=== PATIENT | male | born 1965 | race Caucasian/White ===

== ENCOUNTER → 2020-10-18 07:09 | Outpatient (CLI) | payer BC, SELFPAY ==
--- NOTE | 2020-10-18 | CA_ITS ---
APPROVED REPORT Exam: Pharmacologic Technologist: Gabriella Gates Ht: 5 ft 8 in Wt: 176 lbs BSA: 1.94 m2 HR: 58 bpm BP: 155/89 mmHg Indications: Shortness of Breath, Chest pain Medical History Medications: Lisinopril,,,,, Aspirin,,,,, Metoprolol,,,,, Atorvastatin,,,,, Stress Test Details Test: LEXISCAN HR Resting HR: 66 bpm Max Heart Rate (APMHR): 167 bpm Max HR Achieved: 108 bpm Target HR (85% APMHR): 141 bpm % of APMHR: 64 Recovery HR: 77 bpm BP Resting BP: 155.0/89.0 mmHg Max BP: 169.0/99.0 mmHg Recovery BP: 151.0/88.0 mmHg ECG Resting ECG: sinus bradycardia, PAC Clinical Exercise duration: 04:02 min Highest Stage Achieved: Exercise capacity: 1.0 METs Stress ECG Conclusion Symptoms: Brief shortness of air, mild stomach discomfort and malaise. No chest pain. Arrhythmias/Ectopy: Rare PAC ST-T Changes: No significant changes. Conclusion: Unremarkable Lexiscan stress. Myoview images reported separately. Test Summary REST . . . . . . . Resting REST 03:01 . . 66 . 155/ 89 . . Stage 1 . . . . . . . Myoview Injected Stage 1 01:00 . . 102 . . . . Stage 2 01:00 . . 105 . 162/102 . . Stage 3 01:00 . . 92 . 169/ 99 . . Stage 4 01:00 . . 85 . 164/ 92 . . Stage 4 01:02 . . 85 . 164/ 92 . Stop exercise at 04:02 RECOVERY 01:00 . . 77 . 164/ 92 . . RECOVERY 02:00 . . 80 . 164/ 92 . . RECOVERY 03:00 . . 76 . 151/ 88 . . RECOVERY 03:20 . . 76 . 151/ 88 . . Electronically signed by : Fili Lozoya, 10/19/2020 14:11:47
--- NOTE | 2020-10-18 07:09 | NM_ITS ---
APPROVED REPORT Exam: Nuclear Stress Test Indication: Chest pain, HTN, High cholesterol, Family history Patient Location: Outpatient Stress Tech: Gabriella Gates NM Tech:Viviane Fang, ARRT, RT (R)(N) Ht: 5 ft 8 in Wt: 176 lbs HR: 58 bpm BP: 155/89 mmHg BSA: 1.94 m2 BMI: 26.7 History: Chest pain, HTN, High cholesterol, Family history Procedure: Patient received a 0.4 mg of intravenous Lexiscan, resting heart rate 58 bpm, resting blood pressure 155/89 mmHg, with Lexiscan maximum heart rate achived was 105 bpm which is Less than 85 % of the maximum predicted heart rate and blood pressure was 162/102 mmHg. With Lexiscan, patient denied any complaint of chest pain. Electrocardiogram Resting electrocardiogram showed sinus rhythm, with Lexiscan there is less than 1.[address] segment depression noted from the baseline EKG. The EKG portion of the Lexiscan is nondiagnostic. Cardiac Stress and Resting SPECT Images: Cardiac Stress and Resting SPECT images were obtained using technetium 99m Myoview 32.3 mCi stress and 10.36 mCi at rest. Gated SPECT for analysis of segmental wall motion and calculation of the ejection fraction also done. Prone images were also obtained. Cardiac stress and resting SPECT images show uniform cardial activity without segmental perfusion abnormality, computer derived ejection fraction is 54% with no regional wall motion abnormality, right ventricle is moderately enlarged with normal contractility. Conclusion: 1. The EKG portion of the Lexiscan is nondiagnostic. 2. No scintigraphic evidence of reversible ischemia seen, computer derived ejection fraction is 54% with no regional wall motion abnormality, right ventricle is moderately enlarged with normal contractility. 3. Normal Lexiscan Myoview study. Electronically signed by : Fili Lozoya, 10/19/2020 16:36:23
--- NOTE | 2020-10-18 07:39 | CA_ITS ---
APPROVED REPORT EXAM: Comprehensive 2D, Doppler, and color-flow Echocardiogram Small Business Consultant: Joellen Young RCS, RVS Ht: 5 ft 8 in Wt: 176lbs BSA: 1.94 BP: 147/92 mmHg Indications: MURMUR, ABN EKG, CP, CHISHOLM, HTN, HX-WV, HLD 2D Dimensions IVSd 0.88 cm LVEF (Visual) 58.10 % PWd 0.88 cm LA Volume 38.90 mL LVDd 4.43 cm LA Volume Index 20.10 mL/m2 (M/F) 16-34 LVDs 3.08 cm Aortic Root 2.75 cm Left Atrium 3.92 cm M-Mode Dimensions RVDd 2.61 cm (0.9-2.6) LA Diam 4.73 cm (1.9-4.0) LVDd 5.25 cm (3.5-5.7) Ao Diam 3.05 cm (2.0-3.7) LVDs 3.07 cm (3.5-5.7) IVSd 0.89 cm (0.6-1.1) PWd 0.79 cm (0.6-1.1) EF (Teich) 72.10% EPSs 0.32 cm FS 41.50% EDV (Teich) 132.40 mL ESV (Teich) 37.00 mL LV Diastology E Decel Time 197.00 (160-240 msec) E/A Ratio 1.21 MED E' 9.00 (< 7 cm/sec) MED A' 12.10 cm/s E'/MED E' Ratio 9.59 (>14) LAT E' 11.50 (<10 cm/sec) LAT A' 11.80 cm/s E/LAT E' Ratio 7.50 (>14) Aortic Valve LVOT Max 110.00 (70-110 cm/s) LVOT VTI 20.55 cm AO Peak GR. 5.90 mmHg Mitral Valve MV E Max Khalif. 86.00 (40-130 cm/s) MV A Velocity 71.00 (40-130 cm/s) E/A Ratio 1.21 MV Decel. Time 197.00 (160-240 ms) MV PHT 58.00 ms Pulmonary Valve PV Peak Velocity 106.00 (50-150 cm/s) CA End VMAX 255.00 cm/s Tricuspid Valve TR P. Velocity 219.00 cm/s RAP Estimate 10.00 mmHg RVSP 29.10 mmHg Left Ventricle Left atrium is mildly enlarged, left ventricle is normal size, left ventricle wall thickness is upper limit of the normal, there is preserved left ventricular systolic function, visually estimated ejection fraction 55% with no regional wall motion abnormality, diastolic parameters are inconclusive. Right Ventricle Right atrium and right ventricle are normal size and contractility. Aortic Valve Aortic valve is thickened and calcified leaflet chordae display good mobility. Mitral Valve Mitral valve is grossly normal, there is mild mitral regurgitation. Tricuspid Valve Tricuspid valve grossly normal, there is mild tricuspid regurgitation, tricuspid regurgitation jet velocity is inadequate for calculation of the right ventricular systolic pressure. Pulmonic Valve Pulmonic valve is poorly visualized. Great Vessels Aortic root is normal size. Pericardium No significant pericardial effusion noted. Conclusion 1. Mildly enlarged left atrium, normal left ventricular size, visually estimated ejection fraction 55% with no regional wall motion abnormality, diastolic parameters are inconclusive. 2. Mild mitral and tricuspid regurgitation. 3. No significant pericardial effusion noted. Electronically signed by : Fili Lozoya, 10/19/2020 15:27:17
--- NOTE | 2020-10-18 08:40 | HMH.ITSHM ---
Current Home Medications as stated by this patient Luis Miguel Valadez or solar manufacturer's representative. []ATORVASTATIN ASA LISINOPRIL METOPROLOL
== END ==
PROVIDERS: PCP Nurse Practitioner Family; Visit Provider Physician Assistant
DX: R07.9 Chest pain, unspecified (principal); R01.1 Cardiac murmur, unspecified; R94.31 Abnormal electrocardiogram [ECG] [EKG]
CPT/HCPCS: 78452; 93017; 93306; A9502; J2785

== ENCOUNTER → 2020-11-06 07:00 | Outpatient (CLI) | payer BC, SELFPAY ==
--- NOTE | 2020-11-06 07:11 | CT_ITS ---
PROCEDURE: CT CHEST WO CON CLINICAL INDICATION: EV enlargement Soa Chest pain Non smoker COMPARISON: No exams were available for comparison TECHNIQUE: Axial images obtained with sagittal and coronal reformats. All CT scans at the facility use one or more dose reduction, viz: automated exposure control, ma/kV adjustment per patient size (including targeted exams where dose is matched to indication, i.e. head), or iterative reconstruction technique. FINDINGS: HEART AND MEDIASTINAL STRUCTURES: No mediastinal or hilar mass or adenopathy. Coronary artery calcifications noted. LUNGS AND PLEURAL SPACES: There are scattered small pulmonary nodules which are 4 mm or less. The largest nodules present in the right middle lobe at 5 mm subpleural in nature. No effusions or infiltrates. BONY STRUCTURES: No acute bony abnormalities apparent. UPPER ABDOMEN: No acute finding. There is some faint capsular calcification involving the spleen the laterally. Borderline splenomegaly at 13 cm. ADDITIONAL FINDINGS: There are few small axillary lymph nodes on both sides. IMPRESSION: There are few scattered small pulmonary nodules. These are nonspecific and could be post inflammatory/infectious. Neoplasm/metastasis would be included in the differential diagnosis. Suggest 3 month follow-up to confirm short term stability. Dictated by: Luis Ruiz MD 11/07/2020 10:54 Luis Ruiz MD in [place] 11/07/2020 10:54
== END ==
PROVIDERS: PCP Nurse Practitioner Family; Visit Provider Physician Assistant
DX: R06.02 Shortness of breath (principal); I25.10 Atherosclerotic heart disease of native coronary artery without angina pectoris; I51.7 Cardiomegaly; R01.1 Cardiac murmur, unspecified; R94.31 Abnormal electrocardiogram [ECG] [EKG]; E78.5 Hyperlipidemia, unspecified
CPT/HCPCS: 71250

== ENCOUNTER → 2020-11-15 07:25 | Outpatient (CLI) | payer BC, SELFPAY | PROVIDERS: PCP Nurse Practitioner Family; Visit Provider Physician Assistant | DX: I25.10 Atherosclerotic heart disease of native coronary artery without angina pectoris (principal); E78.5 Hyperlipidemia, unspecified; R94.31 Abnormal electrocardiogram [ECG] [EKG]; R01.1 Cardiac murmur, unspecified; I51.7 Cardiomegaly; I10 Essential (primary) hypertension | CPT/HCPCS: 94060; 94640; 94726; 94729 ==

== ENCOUNTER 2020-12-22 19:27 | Emergency (ER) | payer BC, SELFPAY ==
[2020-12-22 19:42] VITALS: BP 152/90; PULSE 71; RESP 17; TEMP 36.6; O2SAT 99; BMI 27.2
--- NOTE | 2020-12-22 19:49 | HMH.EDUTC ---
[facility] [place] Clinical Impression: Pleurisy Disposition: Home, Self-Care Condition on Discharge: Good Instructions: DI for Pleurisy Additional Instructions: Drink plenty of fluids. Take tylenol for pain or fever. Take the medications as directed. Follow up with your regular doctor. GO TO THE ER FOR ANY WORSENING SYMPTOMS Don't start the oral steroids until tomorrow, since you had the shot here today. Prescriptions: predniSONE [Prednisone 20mg Tab] 20 mg PO BID 4 Days #8 tab Transmission Status: Received by [id number] Azithromycin [Z-David 250mg Tab*] 250 mg PO UD DOSE PK #6 tab Transmission Status: Received by [facility] Referrals: Rajni Hancock APRN [Primary Care Provider] - Time of Disposition: 20:24 Medical Decision Making - Medical Records Medical records reviewed: No: I reviewed the patient's medical records. - Jad Inquiry Pt receiving controlled substance: No Vital Signs: 12/22/20 19:42 Temperature 97.9 F Temperature Source Oral Pulse Rate [Right Radial] 71 Respiratory Rate 17 Blood Pressure [Right Arm] 152/90 H Blood Pressure Mean [Right Arm] 110 02 Sat by Pulse Oximetry 99 Oxygen Delivery Method Room Air Orders (Tests/Meds): ED MEDICATIONS Discontinued Medications Generic Name Dose Route Start Last Admin Trade Name Rhianna PRN Reason Stop Dose Admin Ketorolac Tromethamine 30 mg 12/22/20 20:12 12/22/20 20:31 Ketorolac 60mg/2ml Vial IM 12/22/20 20:13 30 mg ONCE ONE Administration Methylprednisolone Sodium Succinate 125 mg 12/22/20 20:12 12/22/20 20:30 Methylprednisolone Sod Succ 125mg Vial IM 12/22/20 20:13 125 mg ONCE ONE Administration ORDERS Category Date Time Status Chest XR 2 view (NOT portable) [XR chest 2V] Stat Exams 12/22/20 19:52 Taken - Radiology Data #1 Image(s): Chest Image Reviewed: Yes I reviewed the patient's radiology image [facility] [place] - General Stated complaint: pain left side Time Seen by Provider: 12/22/20 19:49 - History of Present Illness Provider Complaint: He states that for the past 2 days he has a sharp pain in his left lower ribs when he breaths deep or twists a certain way. He has also had some shortness of breath after walking. He denies other chest pain. - Related Data Home Medications Medication Instructions Recorded Confirmed aspirin 81 mg tablet,delayed 81 mg PO DAILY 10/10/20 12/22/20 release atorvastatin 40 mg tablet 40 mg PO HS 10/10/20 12/22/20 lisinopril 10 mg tablet 10 mg PO DAILY 10/10/20 12/22/20 Metoprolol Succinate [Metoprolol 25 mg PO DAILY 12/22/20 12/22/20 Succinate 25mg Tablet*] Previous Rx's Medication Instructions Recorded Azithromycin [Z-David 250mg Tab*] 250 mg PO UD DOSE PK #6 tab 12/22/20 predniSONE [Prednisone 20mg 20 mg PO BID 4 Days #8 tab 12/22/20 Tab] Allergies Allergy/AdvReac Type Severity Reaction Status Date / Time No Known Allergies Allergy Verified 10/31/20 09:05 [facility] History - Hepatitis A Screen Attestation statement:: This patient has been screened for Hepatitis A risk factors. I have reviewed the patient's past medical history: Yes Medical History: Reports:: Hyperlipidemia, Hypertension, Myocardial Infarction Laterality Cases: Bilateral: Tonsillectomy, Other Other Surgeries: Yes: No Previous Surgery Amputation: No Fractures: No - Social History Smoking Status: Never smoker Alcohol Intake: current Alcohol Intake Frequency:: holidays/special occasions only Substance Use Type: denies use Occupational Status: employed, disabled Family Hx:: Coronary Artery Disease, Hypertension, Asthma ROS Obtained: Yes All systems reviewed & no additional complaints - Constitutional Constitutional: Denies body ache, Denies chills, Denies fever(s), Reports poor appetite, Reports malaise - Eyes Eyes: Denies eye discharge - ENT Ears, Nose, Mouth, and Throat: Denies dizziness, Denies o
--- NOTE | 2020-12-22 19:52 | XR_ITS ---
PROCEDURE: XR CHEST 2V CLINICAL HISTORY: pleuritic chest pain, short of breath COMPARISON: CT CT CHEST WO CON from 11/06/2020 FINDINGS: The cardiomediastinal silhouette and pulmonary vascularity are within normal limits. There are atelectatic changes in the lung bases. Upper lobes are clear. Right hemidiaphragm is slightly elevated. No acute bony abnormalities. IMPRESSION: Bilateral lower lobe atelectasis Dictated by: Luis Ruiz MD 12/22/2020 22:19 Luis Ruiz MD in [place] 12/22/2020 22:19
--- NOTE | 2020-12-22 20:23 | ECG_ITS ---
APPROVED REPORT Exam: Resting ECG HR:68 bpm ECG Measurements Heart Rate 68 AXES MO 144 P 49 QRSd 82 QRS 12 QT 392 T 19 QTc 416 Conclusion Normal sinus rhythm Minimal voltage criteria for LVH, may be normal variant Borderline ECG Electronically signed by : Carlos Woodward, 12/23/2020 21:05:44
[2020-12-22 21:00] VITALS: BP 150/89; PULSE 76; RESP 18; TEMP 36.6; O2SAT 99
== END 2020-12-22 21:05 | disposition home or self-care (01) ==
PROVIDERS: Emergency Provider Nurse Practitioner Family; PCP Nurse Practitioner Family
DX: R09.1 Pleurisy (principal); I10 Essential (primary) hypertension; E78.5 Hyperlipidemia, unspecified; I25.2 Old myocardial infarction; Z79.899 Other long term (current) drug therapy
CPT/HCPCS: 71046; 93005; 96372; 99202; G0463

== ENCOUNTER 2021-06-02 13:49 | Emergency (ER) | payer BC, SELFPAY ==
[2021-06-02] VITALS (7 sets, daily range): BP systolic 105–120; BP diastolic 65–85; PULSE 76–99; RESP 16–20; TEMP 37.1–38.7; O2SAT 94–98; BMI 28.4
--- NOTE | 2021-06-02 14:05 | HMH.EDGENADL ---
ED Disposition Clinical Impression: COVID-19 virus infection Disposition: Home, Self-Care Condition on Discharge: Fair Instructions: DI for COVID-19 (Suspected or Confirmed ) Additional Instructions: You will receive a call to schedule monoclonal antibody therapy for COVID-19. Tylenol or ibuprofen for fever and pain. Rest and drink plenty of fluids. COVID-19 Isolation: Isolate yourself for a MINIMUM of 10 days: What to do: Monitor your symptoms. If you have an emergency warning sign (including trouble breathing), seek emergency medical care immediately. Stay in a separate room from other household members, if possible. Use a separate bathroom, if possible. Avoid contact with other members of the household and pets. Don?t share personal household items, like cups, towels, and utensils. Wear a mask when around other people if able. You can be around others AFTER: 10 days since symptoms first appeared AND 24 hours with no fever without the use of fever-reducing medications AND Other symptoms of COVID-19 are improving Referrals: Rajni Hancock APRN [Primary Care Provider] - - Critical Care Critical Care Time: No Attestation: On 06/02/21, the high probability of a clinically significant, sudden or life threatening deterioration of the following system(s) required my full and direct attention, intervention and personal management. The time I documented below is in addition to time spent performing reported procedures but includes the following listed in this critical care notation. Medical Decision Making - Jad Inquiry Pt receiving controlled substance: No Vital Signs: 06/02/21 13:50 06/02/21 14:24 Temperature 100.7 F H 101.7 F H Temperature Source Oral Oral Pulse Rate [Right] 99 H Respiratory Rate 20 Blood Pressure [Right Arm] 120/85 Blood Pressure Mean [Right Arm] 96 02 Sat by Pulse Oximetry 96 Oxygen Delivery Method Room Air - Lab Data Lab Results 06/02/21 13:20: WBC 4.7 L, RBC 4.56 L, Hgb 14.1, Hct 42.1, MCV 92.4, MCH 31.0, MCHC 33.6, RDW 12.9, Plt Count 198, MPV 9.1, Neut % (Auto) 75.2, Lymph % (Auto) 20.0, [place] % (Auto) 3.7, Eos % (Auto) 0.1, Baso % (Auto) 1.0, Neut # (Auto) 3.5, Lymph # (Auto) 0.9, [place] # (Auto) 0.2, Eos # (Auto) 0.0, Baso # (Auto) 0.1 06/02/21 13:20: Sodium 139, Potassium 3.6, Chloride 106, Carbon Dioxide 23, Anion Gap 13.6, BUN 14, Creatinine 1.20, Estimated Creat Clear 84, Estimated GFR 63, Est GFR ( Amer) 76, Glucose 123 H, Calcium 8.2 L, Total Bilirubin 0.3, AST 42, ALT 30, Alkaline Phosphatase 89, Total Protein 7.1, Albumin 3.9, Globulin 3.2, Albumin/Globulin Ratio 1.2 06/02/21 13:20: SARS-CoV-2 (PCR) Detected A, Influenza A Untype (PCR) Not detected, Influenza Type B (PCR) Not detected 06/02/21 13:20: Lactate 0.9 Result diagrams: 06/02/21 13:20 06/02/21 13:20 Orders (Tests/Meds): ED MEDICATIONS Discontinued Medications Generic Name Dose Route Start Last Admin Trade Name Freq PRN Reason Stop Dose Admin Ketorolac Tromethamine 30 mg 06/02/21 14:12 06/02/21 14:19 Ketorolac 30mg/Ml Vial IV 06/02/21 14:13 30 mg ONCE ONE Administration Ondansetron HCl 4 mg 06/02/21 14:12 06/02/21 14:19 Ondansetron 4mg/2ml Vial IV 06/02/21 14:13 4 mg ONCE ONE Administration Sodium Chloride 1,000 ml 06/02/21 14:12 06/02/21 14:21 Sodium Chloride 0.9% 1000ml Bag IV 06/02/21 14:13 1,000 ml BOLUS ONE Administration ORDERS Category Date Time Status Blood Culture Stat Micro 06/02/21 14:20 Received - Radiology Data #1 Image(s): Chest Image Reviewed: Yes I reviewed the patient's radiology image, Yes I have reviewed radiologist's interpretation PROCEDURE INFORMATION: Exam: XR Chest Exam date and time: 06/02/2021 2:11 PM Age: 56 years old Clinical indication: Cough and fever; Patient HX: Cough, fever, possible covid. ; Additional info: Fever, cough TECHNIQUE: Imaging protocol: XR of the
--- NOTE | 2021-06-02 14:11 | XR_ITS ---
PROCEDURE INFORMATION: Exam: XR Chest Exam date and time: 06/02/2021 2:11 PM Age: 56 years old Clinical indication: Cough and fever; Patient HX: Cough, fever, possible covid. ; Additional info: Fever, cough TECHNIQUE: Imaging protocol: XR of the chest. Views: 1 view. COMPARISON: CR XR CHEST 2V 12/22/2020 7:50 PM FINDINGS: Lungs: Hyperinflation and interstitial prominence. No focal infiltrate. Pleural spaces: No pleural effusion. Heart/Mediastinum: Epicardial fat, without cardiomegaly. Bones/joints: Unremarkable. IMPRESSION: Hyperinflation and interstitial prominence.
--- NOTE | 2021-06-02 14:26 | PC.NURSE ---
XR AT BEDSIDE.
[2021-06-02 14:27] LABS: Influenza A, PCR Not Detected (NotDetected); Influenza B, PCR Not Detected (NotDetected)
[2021-06-02 14:35] LABS: Basophils # 0.1 K/mm3 (0-0.2); Eosinophils % 0.1 % (0.1-12.0); Hematocrit 42.1 % (42.0-52.0); Hemoglobin 14.1 g/dL (14.1-18.0); Lymphocytes # 0.9 K/mm3 (0.7-4.5); Mean Corpuscular HGB Conc 33.6 g/dL (31.8-35.4); Mean Corpuscular Volume 92.4 fl (80-94); Mean Platelet Volume 9.1 fl (7.4-10.4); Monocytes # 0.2 K/mm3 (0.1-1.0); Monocytes % 3.7 % (1.7-9.3); Neutrophils # 3.5 K/mm3 (1.8-7.8); Neutrophils % 75.2 % (37.0-80.0); Platelet Count 198 K/mm3 (142-424); Red Blood Count 4.56 M/mm3 (4.60-6.20); Red Cell Distribution Width 12.9 % (11.5-17.5); White Blood Count 4.7 K/mm3 (4.8-10.8)
[2021-06-02 14:41] LABS: Potassium 3.6 mmoL/L (3.5-5.1); Sodium 139 mmol/L (136-145)
[2021-06-02 14:42] LABS: Chloride 106 mmol/L (98-107)
[2021-06-02 14:44] LABS: Alanine Aminotransferase 30 U/L (12-78); Albumin Level 3.9 g/dl (3.5-5.0); Albumin/Globulin Ratio 1.2 (1.1-1.8); Alkaline Phosphatase 89 U/L (38-126); Anion Gap 13.6 mEq/L (5-15); Aspartate Amino Transferase 42 U/L (17-59); Bilirubin,Total 0.3 mg/dl (0.2-1.3); Blood Urea Nitrogen 14 mg/dl (9-20); Calcium 8.2 mg/dl (8.4-10.2); Carbon Dioxide 23 mmol/L (22.0-30.0); Creatinine Clearance Estimated 84 mL/min (50-200); Estimated Glomerular Filt Rate 63 ml/min (>60); GFR (African American) 76 ML/MIN (>60); Globulin 3.2 g/dL (1.3-3.2); Glucose 123 mg/dl (74-100); Lactic Acid 0.9 mmol/L (0.7-2.1); Total Protein,Serum 7.1 g/dl (6.3-8.2)
[2021-06-02 14:59] LABS: Coronavirus 19, PCR Detected (NotDetected)
--- NOTE | 2021-06-03 10:58 | PC.NURSE ---
CALLED PT TO SCHEDULE REGEN-COV INFUSION. PT STATES HE CHANGED HIS MIND AND NO LONGER WANTS THE INFUSION.
== END 2021-06-02 16:04 | disposition home or self-care (01) ==
PROVIDERS: Emergency Provider Emergency Medicine; PCP Nurse Practitioner Family
DX: U07.1 COVID-19 (principal)
CPT/HCPCS: 71045; 80053; 83605; 85025; 87040; 96365; 96375; 99283; J2405; U0003

== ENCOUNTER 2021-06-07 11:22 | Inpatient (IN) | payer BC, SELFPAY ==
[2021-06-07] VITALS (16 sets, daily range): BP systolic 95–127; BP diastolic 69–84; PULSE 62–127; RESP 20–35; TEMP 36.3–39.6; O2SAT 63–100; BMI 27.9; BMI 25.3
--- NOTE | 2021-06-07 11:53 | XR_ITS ---
PROCEDURE: XR CHEST PORTABLE CLINICAL HISTORY: short of breath COMPARISON: CT CT CHEST WO CON from 11/06/2020 CR XR CHEST 2V from 12/22/2020 CR XR CHEST PORTABLE from 06/02/2021 FINDINGS: The cardiomediastinal silhouette and pulmonary vascularity are within normal limits. Consolidation is now present in both mid and lower lung zones consistent with bilateral pneumonia. Lung apices are clear. No effusions. There are low lung volumes. No acute bony abnormalities. IMPRESSION: Bilateral lower lobe pneumonia Dictated by: Luis Ruiz MD 06/07/2021 12:49 Luis Ruiz MD in [place] 06/07/2021 12:49
--- NOTE | 2021-06-07 12:02 | HMH.EDGENADL ---
ED Disposition Clinical Impression: COVID-19 Respiratory failure with hypoxia Qualifiers: Chronicity: acute Qualified Code(s): J96.01 - Acute respiratory failure with hypoxia Disposition: Admitted As Inpatient Condition on Discharge: Serious Referrals: Rajni Hancock APRN [Primary Care Provider] - Time of Disposition: 12:51 - Critical Care Critical Care Time: Yes Attestation: On , the high probability of a clinically significant, sudden or life threatening deterioration of the following system(s) required my full and direct attention, intervention and personal management. The time I documented below is in addition to time spent performing reported procedures but includes the following listed in this critical care notation. Total Critical Care Time: 35 Vital system(s) involved:: Respiratory Failure My critical care processes included: Assessment & monitoring of V/S, Initial and Re-exams, Coordinating Care, Medication Orders and management, Documentation Medical Decision Making - Medical Records Medical records reviewed: Yes: I reviewed the patient's medical records. - Jad Inquiry Pt receiving controlled substance: No Vital Signs: 06/07/21 11:23 06/07/21 11:24 06/07/21 12:05 Temperature 103.3 F H Temperature Source Oral Pulse Rate [Left Radial] 127 H Respiratory Rate 35 H Blood Pressure [Right Arm] 127/78 Blood Pressure Mean [Right Arm] 94 Blood Pressure Source [Right Arm] Automatic Cuff Blood Pressure Position [Right Arm] Sitting 02 Sat by Pulse Oximetry 63 L 92 L 91 L Oxygen Delivery Method Room Air Non-Rebreather Vapotherm Oxygen Flow Rate (LPM) 15 40 - Lab Data Lab Results 06/07/21 11:50: WBC 7.7, RBC 4.74, Hgb 14.6, Hct 43.7, MCV 92.0, MCH 30.8, MCHC 33.4, RDW 12.7, Plt Count 312, MPV 8.8, Neut % (Auto) 85.6 H, Lymph % (Auto) 8.8 L, [place] % (Auto) 5.1, Eos % (Auto) 0.0 L, Baso % (Auto) 0.4, Neut # (Auto) 6.6, Lymph # (Auto) 0.7, [place] # (Auto) 0.4, Eos # (Auto) 0.0, Baso # (Auto) 0.0, Total Counted 100, Neutrophils % (Manual) 86 H, Lymphocytes % (Manual) 11, Monocytes % (Manual) 3, Platelet Estimate Normal, Hypochromasia 1+, Macrocytosis 1+ 06/07/21 11:50: Sodium 138, Potassium 3.8, Chloride 98, Carbon Dioxide 28, Anion Gap 15.8 H, BUN 19, Creatinine 1.30 H, Estimated Creat Clear 77, Estimated GFR 58 L, Est GFR ( Amer) 70, Glucose 131 H, Calcium 8.6, Total Bilirubin 0.7, AST 89 H, ALT 102 H, Alkaline Phosphatase 79, C-Reactive Protein 180.0 H, Total Protein 7.9, Albumin 3.8, Globulin 4.1 H, Albumin/Globulin Ratio 0.9 L 06/07/21 11:50: Procalcitonin 0.571 06/07/21 11:53: VBG pH 7.42 H, VBG pCO2 36.7, VBG pO2 26.9 L, VBG HCO3 23.0, VBG Total CO2 24.1, VBG O2 Saturation 52.5, VBG Base Excess -1.6 Result diagrams: 06/07/21 11:50 06/07/21 11:50 Orders (Tests/Meds): ED MEDICATIONS Discontinued Medications Generic Name Dose Route Start Last Admin Trade Name Freq PRN Reason Stop Dose Admin Acetaminophen 650 mg 06/07/21 11:51 06/07/21 12:09 Acetaminophen 325mg Tab PO 06/07/21 11:52 650 mg ONCE ONE Administration Dexamethasone Sodium Phosphate 8 mg 06/07/21 11:51 06/07/21 12:09 Dexamethasone 4mg/Ml 1ml Vial IV 06/07/21 11:52 8 mg ONCE ONE Administration ORDERS Category Date Time Status XR chest portable Stat Exams 06/07/21 11:53 Taken ECG Request by /Nse Stat Y 06/07/21 11:53 Ordered Medical Decision Narrative: In summary this is a 56-year-old male presenting to the emergency department with COVID-19, respiratory distress. Patient is uncomfortable on arrival. Taken to a critical room and placed on cardiac/vascular sonographer. Elevated respiratory rate at 36/min. Initial oxygen saturation was less than 70% on room air. He is mentating appropriately. Concern for Covid pneumonia. Will obtain CBC, CMP, chest x-ray, EKG, VBG. Patient given 8 mg dexamethasone. Placed on nonrebreather. Initial laboratory results show elevated CRP at 130. DONNIE w
[2021-06-07 12:04] LABS: Basophils % 0.4 % (0.1-2.0); Hematocrit 43.7 % (42.0-52.0); Hemoglobin 14.6 g/dL (14.1-18.0); Lymphocytes # 0.7 K/mm3 (0.7-4.5); Lymphocytes % 8.8 % (10-50); Mean Corpuscular HGB Conc 33.4 g/dL (31.8-35.4); Mean Corpuscular Hemoglobin 30.8 pg (27.0-31.2); Mean Platelet Volume 8.8 fl (7.4-10.4); Monocytes # 0.4 K/mm3 (0.1-1.0); Monocytes % 5.1 % (1.7-9.3); Neutrophils # 6.6 K/mm3 (1.8-7.8); Neutrophils % 85.6 % (37.0-80.0); Platelet Count 312 K/mm3 (142-424); Red Blood Count 4.74 M/mm3 (4.60-6.20); Red Cell Distribution Width 12.7 % (11.5-17.5); White Blood Count 7.7 K/mm3 (4.8-10.8)
[2021-06-07 12:10] LABS: MANUAL DIFFERENTIAL MANUAL DIFFERENTIAL (MANUAL DIFF)
--- NOTE | 2021-06-07 12:10 | ECG_ITS ---
APPROVED REPORT Exam: Resting ECG HR:119 bpm ECG Measurements Heart Rate 119 AXES PA 120 P 43 QRSd 78 QRS 31 QT 312 T 29 QTc 438 Conclusion Sinus tachycardia Possible Left atrial enlargement Nonspecific ST abnormality Abnormal ECG Electronically signed by : Carlos Woodward MD 06/10/2021 16:14:59
[2021-06-07 12:20] LABS: VBG Base Excess -1.6 mmol/L (-2.4-2.3); VBG Oxygen Saturation 52.5 % (50-70); VBG PCO2 36.7 mmol/L (35-51); VBG PH 7.42 mmol/L (7.31-7.41); VBG PO2 26.9 mmol/L (28-40); VBG Total CO2 24.1 mmol/L (23-27)
[2021-06-07 12:25] LABS: Lymphocytes % 11 % (10-50); Monocytes % 3 % (2-9); Neutrophils % 86 % (42-76); Total Cells Counted 100
[2021-06-07 12:26] LABS: Hypochromasia 1+; Macrocytosis 1+; Platelet Estimate Normal
[2021-06-07 12:29] LABS: Alanine Aminotransferase 102 U/L (12-78); Albumin Level 3.8 g/dl (3.5-5.0); Albumin/Globulin Ratio 0.9 (1.1-1.8); Alkaline Phosphatase 79 U/L (38-126); Anion Gap 15.8 mEq/L (5-15); Aspartate Amino Transferase 89 U/L (17-59); Bilirubin,Total 0.7 mg/dl (0.2-1.3); Blood Urea Nitrogen 19 mg/dl (9-20); Calcium 8.6 mg/dl (8.4-10.2); Carbon Dioxide 28 mmol/L (22.0-30.0); Chloride 98 mmol/L (98-107); Creatinine Clearance Estimated 77 mL/min (50-200); Estimated Glomerular Filt Rate 58 ml/min (>60); GFR (African American) 70 ML/MIN (>60); Globulin 4.1 g/dL (1.3-3.2); Glucose 131 mg/dl (74-100); Potassium 3.8 mmoL/L (3.5-5.1); Sodium 138 mmol/L (136-145); Total Protein,Serum 7.9 g/dl (6.3-8.2)
[2021-06-07 12:45] LABS: Procalcitonin 0.571 ng/mL (0.0-2.0)
--- NOTE | 2021-06-07 15:29 | PC.NURSE ---
2ND MESSAGE LEFT FOR DR THOMAS
--- NOTE | 2021-06-07 16:42 | PC.NURSE ---
report given to [place] LEYVA
--- NOTE | 2021-06-07 16:47 | PC.NURSE ---
spoke with ICU staff, states they are about to be in with another pt on a procedure; will wait for that procedure to be finished prior to transporting pt to assigned room as RT staff will be in with that procedure as well.
[2021-06-08] VITALS (9 sets, daily range): BP systolic 101–143; BP diastolic 69–97; PULSE 60–96; RESP 20–33; TEMP 37.4; O2SAT 89–97; BMI 25.4
--- NOTE | 2021-06-08 00:01 | XR_ITS ---
PROCEDURE INFORMATION: Exam: XR Chest Exam date and time: 06/08/2021 12:01 AM Age: 56 years old Clinical indication: Shortness of breath; Additional info: Covid TECHNIQUE: Imaging protocol: XR of the chest. Views: 1 view. COMPARISON: CR XR CHEST PORTABLE 06/07/2021 12:08 PM FINDINGS: Lungs: There continues to be airspace disease in both lungs, unchanged. Pleural spaces: Unremarkable. No pleural effusion. No pneumothorax. Heart/Mediastinum: Unremarkable. No cardiomegaly. Bones/joints: Unremarkable. IMPRESSION: Stable chest.
[2021-06-08 06:04] LABS: Basophils % 0.3 % (0.1-2.0); Hematocrit 42.8 % (42.0-52.0); Hemoglobin 13.7 g/dL (14.1-18.0); Lymphocytes # 0.9 K/mm3 (0.7-4.5); Lymphocytes % 8.4 % (10-50); Mean Corpuscular HGB Conc 31.9 g/dL (31.8-35.4); Mean Corpuscular Hemoglobin 30.3 pg (27.0-31.2); Mean Corpuscular Volume 94.7 fl (80-94); Mean Platelet Volume 8.8 fl (7.4-10.4); Monocytes # 0.5 K/mm3 (0.1-1.0); Monocytes % 4.6 % (1.7-9.3); Neutrophils # 9.1 K/mm3 (1.8-7.8); Neutrophils % 86.8 % (37.0-80.0); Platelet Count 303 K/mm3 (142-424); Red Blood Count 4.51 M/mm3 (4.60-6.20); Red Cell Distribution Width 12.9 % (11.5-17.5); White Blood Count 10.5 K/mm3 (4.8-10.8)
[2021-06-08 06:08] LABS: MANUAL DIFFERENTIAL MANUAL DIFFERENTIAL (MANUAL DIFF)
[2021-06-08 06:38] LABS: Lymphocytes % 5 % (10-50); Monocytes % 5 % (2-9); Neutrophils % 90 % (42-76); Platelet Estimate Normal; RBC Morphology Normal; Total Cells Counted 100
[2021-06-08 06:42] LABS: Anion Gap 15.1 mEq/L (5-15); Blood Urea Nitrogen 28 mg/dl (9-20); Calcium 8.4 mg/dl (8.4-10.2); Carbon Dioxide 27 mmol/L (22.0-30.0); Chloride 103 mmol/L (98-107); Creatinine Clearance Estimated 91 mL/min (50-200); Estimated Glomerular Filt Rate 78 ml/min (>60); GFR (African American) 94 ML/MIN (>60); Glucose 171 mg/dl (74-100); Potassium 4.1 mmoL/L (3.5-5.1); Sodium 141 mmol/L (136-145)
--- NOTE | 2021-06-08 09:37 | CA_ITS ---
APPROVED REPORT EXAM: Comprehensive 2D, Doppler, and color-flow Echocardiogram Yard Conductor: Dariana Smith, RT(R) Ht: 5 ft 8 in Wt: 167lbs BSA: 1.89 BP: 127/78 mmHg Indications: cardiomegaly, COVID, hx SD, pneumonia, murmur, SOB, hyperlipidemia 2D Dimensions LVOT 2.12 cm (M/F) 1.5-2.5 LA Volume 38.30 mL LA Volume Index 20.26 mL/m2 (M/F) 16-34 M-Mode Dimensions RVDd 3.40 cm (0.9-2.6) LA Diam 3.80 cm (1.9-4.0) LVDd 4.12 cm (3.5-5.7) Ao Diam 2.83 cm (2.0-3.7) LVDs 2.97 cm (3.5-5.7) IVSd 0.93 cm (0.6-1.1) PWd 0.79 cm (0.6-1.1) EF (Teich) 54.50% FS 27.90% EDV (Teich) 75.10 mL ESV (Teich) 34.20 mL LV Diastology E Decel Time 207.00 (160-240 msec) E/A Ratio 1.0 MED E' 12.10 (< 7 cm/sec) E'/MED E' Ratio 7.13 (>14) LAT E' 17.70 (<10 cm/sec) E/LAT E' Ratio 4.88 (>14) Mitral Valve MV E Max Khalif. 86.00 (40-130 cm/s) MV A Velocity 87.00 (40-130 cm/s) E/A Ratio 1.00 MV Decel. Time 207.00 (160-240 ms) MV PHT 61.00 ms Left Ventricle Left atrium is normal size, left ventricle is normal size, visually estimated ejection fraction 55% with no regional wall motion abnormality, diastolic parameters are within normal range. Right Ventricle Right atrium and right ventricle are normal size and contractility. Aortic Valve Aortic valve is grossly normal. There is no aortic stenosis or aortic insufficiency. Mitral Valve Mitral valve is grossly normal, there is trace mitral regurgitation. Tricuspid Valve Tricuspid grossly normal, there is trace tricuspid regurgitation, tricuspid regurgitation jet velocity is inadequate for calculation of the right ventricular systolic pressure. Pulmonic Valve Pulmonic valve is poorly visualized. Great Vessels Aortic root is normal size. Inferior vena cava is not well visualized. Pericardium No significant pericardial effusion noted. Conclusion 1. Normal left ventricular size, preserved left ventricular systolic function, visually estimated ejection fraction 55% with no regional wall motion abnormality, diastolic parameters are within normal range. 2. Trace mitral and tricuspid regurgitation. 3. No significant pericardial effusion noted. Electronically signed by : Fili Lozoya MD 06/08/2021 12:25:54
--- NOTE | 2021-06-08 10:07 | HMH.PHAINT ---
MEDICATION RECONCILIATION COMPLETE USING LIST FROM MD OFFICE AND EXTERNAL PHARMACY FILL HISTORY.
[2021-06-08 10:38] LABS: C-Reactive Protein 204.4 mg/L (0-4); D-Dimer 0.84 ug/mL (0.0-0.5)
[2021-06-08 11:52] LABS: Ferritin 1600 ng/ml (17.9-464)
--- NOTE | 2021-06-08 14:01 | HMH.PULMCON ---
*Reason for consult:: Acute hypoxic respiratory failure, COVID-19 pneumonia *History of present illness: Mr. Valadez is a 56-year-old male no prior respiratory, initially seen in pulmonary clinic for pulmonary nodules presented to the hospital with worsening respiratory failure needing high flow oxygen recommend to maintain his disease oxygen saturation found to be positive for COVID-19 pneumonia and pulmonary was called for further management. [facility] History Medical History: Reports:: Hyperlipidemia, Hypertension, Myocardial Infarction *Have you ever received a pneumonia vaccine?: No *Have you received a flu vaccine this season?: No Laterality Cases: Bilateral: Tonsillectomy, Other Other Surgeries: Yes: No Previous Surgery Amputation: No Fractures: No - *Social History Smoking Status: Never smoker Alcohol Intake: current Alcohol Intake Frequency:: holidays/special occasions only Substance Use Type: denies use Last Used Substance: unknown *Occupational Status:: employed, disabled *Travel in the last 8 weeks: None Family Hx:: Coronary Artery Disease, Hypertension, Asthma ROS - Cons Reports body ache(s), Reports chills - Eyes Denies blind spots - ENT Denies abnormal hearing - Card Reports shortness of breath, Reports shortness of breath with activity - Resp Respiratory: Reports dyspnea, Reports dyspnea on exertion, Reports cough with sputum production - GI Gastrointestingal: Denies: abdominal pain - [place] Musculoskeletal: Denies abnormal gait - Psych Reports abnormal sleep pattern Meds Home Medications Medication Instructions Recorded Confirmed Type aspirin 81 mg tablet,delayed 81 mg PO DAILY 10/10/20 06/07/21 History release metoprolol succinate 25 mg 25 mg PO DAILY #90 tab 02/28/21 06/07/21 Rx tablet,extended release 24 hr lisinopril 10 mg tablet 10 mg PO DAILY #30 tab 03/02/21 06/07/21 Rx albuterol sulfate 90 mcg/actuation 1 inh INHALATION QID PRN #8.5 g 03/08/21 06/07/21 Rx aerosol inhaler atorvastatin 40 mg tablet 40 mg PO HS #30 tab 04/12/21 06/07/21 Rx Allergies Allergy/AdvReac Type Severity Reaction Status Date / Time No Known Allergies Allergy Verified 06/02/21 14:11 Exam - Constitutional Constitutional:: Present: comfortable - HENMT Exam HENMT: Present: normocephalic, atraumatic - Eye Exam Eyes:: Present: normal appearance both eyes and related structures - Neck Exam Neck:: Present: normal visual inspection - Respiratory Exam Respiratory:: Present: able to speak in complete sentences, no respiratory distress, crackles. Absent: wheezing - Cardiovascular Exam Cardiac:: Present: S1, S2 - GI Exam GI:: Present: soft, no hepatosplenomegaly - Skin Exam Skin: Present: warm, no rash - Extremities Exam Extremities: Present: no cyanosis, no clubbing, no edema - Psychiatric Exam Psychiatric: Present: normal affect Internal Medicine - CN: Reslt - Labs CBC & Chem 7: 06/08/21 05:00 06/08/21 05:00 Labs: Short CBC 06/08/21 Range/Units 05:00 WBC 10.5 D (4.8-10.8) K/mm3 Hgb 13.7 L (14.1-18.0) g/dL Hct 42.8 (42.0-52.0) % Plt Count 303 (142-424) K/mm3 BMP 06/08/21 05:00 Sodium 141 Potassium 4.1 Chloride 103 Carbon Dioxide 27 BUN 28 H D Creatinine 1.00 D Glucose 171 H D Calcium 8.4 - ABG Interpretation ABG results: 06/07/21 11:53 VBG pH 7.42 H VBG pCO2 36.7 VBG pO2 26.9 L VBG HCO3 23.0 VBG Total CO2 24.1 VBG O2 Saturation 52.5 VBG Base Excess -1.6 Assessment and Plan - Assessment and plan all Dx Assessment and Plan for all problems:: #Acute hypoxic respiratory failure: #COVID-19 pneumonia: Mr. Valadez is 56-year-old male no prior respiratory complaint presented to the hospital worsening respiratory symptoms 1 day positive for COVID-19 pneumonia. Chest x-ray on admission showed bilateral lower lobe pulmonary infiltrates. On examination patient needing 100% 40 L high flow nasal
--- NOTE | 2021-06-08 14:40 | P.CONPHA_ITS ---
[facility] Pharmacy VTE Monitoring - Patient Demographics Admission date: 06/07/21 Report Date: 06/08/21 Time: 14:40 Allergies/Adverse Reactions: Patient Allergies No Known Allergies Allergy (Verified 06/02/21 14:11) Height: 1.73 m Weight: 75.778 kg Patient Problems: Current Active Problems COVID-19 (Acute) Respiratory failure with hypoxia (Acute) - VTE Risk Labs: VTE Related Lab Results Hgb 13.7 g/dL (14.1-18.0) L 06/08/21 05:00 Hct 42.8 % (42.0-52.0) 06/08/21 05:00 Plt Count 303 K/mm3 (142-424) 06/08/21 05:00 BUN 28 mg/dl (9-20) H D 06/08/21 05:00 Creatinine 1.00 mg/dl (0.66-1.25) D 06/08/21 05:00 Estimated Creat Clear 91 mL/min (50-200) 06/08/21 05:00 Was VTE Risk Assessment Performed: Yes VTE Score: 2 VTE Risk Level: Very Low Risk - Prophylaxis VTE Prophylaxis Ordered?: Yes Types of VTE Prophylaxis: TEDS Knee High, Pharmacological Location of Applied Device: Bilateral Lower Extremeties Pharmacologic Type: Enoxaparin
--- NOTE | 2021-06-08 16:24 | HMH.HP ---
*Admission Date: 06/07/21 *Chief complaint: soa *History of present illness: 56-year-old male presented to the emergency department with difficulty breathing. Symptoms started around 5 days ago. Was seen and tested on fri. He had cough, chills, fever, body aches. Tested positive for COVID-19 on Friday. At that time he was not having significant shortness of breath but over the last few days his symptoms have gotten worse. Patient states cough and shortness of breath has increased with Fevers and chills. No nausea or vomiting. Patient admitted for covid and pulm consult. Hx of HTN,enlarged heart,hyperlip [facility] History I have reviewed the patient's past medical history: Yes Medical History: Reports:: Hyperlipidemia, Hypertension, Myocardial Infarction *Have you ever received a pneumonia vaccine?: No *Have you received a flu vaccine this season?: No Laterality Cases: Bilateral: Tonsillectomy, Other Other Surgeries: Yes: No Previous Surgery Amputation: No Fractures: No - *Social History Smoking Status: Never smoker Alcohol Intake: current Alcohol Intake Frequency:: holidays/special occasions only Substance Use Type: denies use Last Used Substance: unknown *Occupational Status:: employed, disabled *Travel in the last 8 weeks: None Family Hx:: Coronary Artery Disease, Hypertension, Asthma Review of Systems - Review of Systems Review of systems:: pertinent systems reviewed and negative unless documented below - Constitutional Reports body ache(s), Reports fatigue, Reports fever(s), Reports lack of energy - Eyes Denies blurry vision - ENT Denies bleeding gums - *Cardiovascular Reports shortness of breath with activity, Denies chest pain at rest - *Respiratory Reports cough, Reports shortness of breath with activity, Denies change in phlegm color - *Gastrointestinal Denies abdominal pain - *Genitourinary Denies difficulty urinating - *Musculoskeletal Denies joint pain - Integumentary/Breasts Denies bleeding lesions - *Neurologic Reports weakness, Denies abnormal walking, Denies abnormal hearing, Denies abnormal speech, Denies dizziness, Denies headache(s) - Psychiatric Denies lack of enjoyment - Endocrine Denies excessive sweating - Hematologic/Lymphatic Denies easy bruising - Allergic/Immunologic Denies GI upset with certain foods Meds Home Medications Medication Instructions Recorded Confirmed Type aspirin 81 mg tablet,delayed 81 mg PO DAILY 10/10/20 06/07/21 History release metoprolol succinate 25 mg 25 mg PO DAILY #90 tab 02/28/21 06/07/21 Rx tablet,extended release 24 hr lisinopril 10 mg tablet 10 mg PO DAILY #30 tab 03/02/21 06/07/21 Rx albuterol sulfate 90 mcg/actuation 1 inh INHALATION QID PRN #8.5 g 03/08/21 06/07/21 Rx aerosol inhaler atorvastatin 40 mg tablet 40 mg PO HS #30 tab 04/12/21 06/07/21 Rx Allergies Allergy/AdvReac Type Severity Reaction Status Date / Time No Known Allergies Allergy Verified 06/02/21 14:11 Exam Vital signs and Labs for Last 24 Hours: Temp Pulse Resp BP Pulse Ox 97.4 F L 80 26 H 119/69 95 06/07/21 20:00 06/08/21 16:00 06/08/21 16:00 06/08/21 16:00 06/08/21 16:00 Laboratory Results - last 24 hr 06/08/21 05:00: WBC 10.5 D, RBC 4.51 L, Hgb 13.7 L, Hct 42.8, MCV 94.7 H, MCH 30.3, MCHC 31.9, RDW 12.9, Plt Count 303, MPV 8.8, Neut % (Auto) 86.8 H, Lymph % (Auto) 8.4 L, [place] % (Auto) 4.6, Eos % (Auto) 0.0 L, Baso % (Auto) 0.3, Neut # (Auto) 9.1 H, Lymph # (Auto) 0.9, [place] # (Auto) 0.5, Eos # (Auto) 0.0, Baso # (Auto) 0.0, Total Counted 100, Neutrophils % (Manual) 90 H, Lymphocytes % (Manual) 5 L, Monocytes % (Manual) 5, Platelet Estimate Normal, RBC Morphology Normal 06/08/21 05:00: Sodium 141, Potassium 4.1, Chloride 103, Carbon Dioxide 27, Anion Gap 15.1 H, BUN 28 H D, Creatinine 1.00 D, Estimated Creat Clear 91, Estimated GFR 78, Est GFR ( Amer) 94 D, Glucose 171 H D, Calcium 8.4 06/08/21 05:00: D-Dimer 0.84
--- NOTE | 2021-06-08 16:37 | PC.NURSE ---
HE IS AOX4, ABLE TO MAKE NEEDS KNOWN TO STAFF, HE HAS RESTED IN BED FOR MOST OF SHIFT, APPETITE HAS BEEN DECREASED. PT HAS BEEN ASKED TO LAY PRONE WHEN POSSIBLE AND HAS BEEN REMINDED MULTIPLE TIMES OF BENEFITS BUT HAS YET TO PRONE THIS SHIFT, PT STILL REQUIRES VAPOTHERM 40LPM @ 100%. O2 SATURATION HAS REMAINED>90% WITH CURRENT SETTINGS. ABD IS SOFT AND NON-TENDER, PT DENIES N/V/D. APPETITE HAS BEEN DECREASED THIS SHIFT. NSR ON TELEMETRY. VITAL SIGNS STABLE. NO NEEDS AT THIS TIME. WILL CONTINUE TO MONITOR.
[2021-06-09] VITALS (10 sets, daily range): BP systolic 124–150; BP diastolic 64–87; PULSE 70–95; RESP 20–32; TEMP 36.5–37.2; O2SAT 91–97; BMI 25.9
--- NOTE | 2021-06-09 03:51 | PC.NURSE ---
Pt a+o x4. Pt continues to be on vapotherm at 40 L 100%. Pt sats drop to mid/upper 80s with movement but otherwise stay above 90%. Pt has been awake most of shift and has proned 2x t/o shift for 1 hour at a time, sats 97-98% while proning. Pt has not voiced any complaints to staff t/o shift. Currently watching tv in bed. Call light within reach. Will continue to monitor.
--- NOTE | 2021-06-09 04:30 | PC.NURSE ---
This RN noted that pt sats were continuously mid/upper 80s while pt at rest. Pt reports he does feel SOA. RT notified and applied non rebreather to vapotherm. Pt sats now upper 90s.
[2021-06-09 05:44] LABS: Basophils % 0.1 % (0.1-2.0); Hematocrit 37.2 % (42.0-52.0); Hemoglobin 12.2 g/dL (14.1-18.0); Lymphocytes # 0.7 K/mm3 (0.7-4.5); Lymphocytes % 4.4 % (10-50); Mean Corpuscular HGB Conc 32.7 g/dL (31.8-35.4); Mean Corpuscular Hemoglobin 30.6 pg (27.0-31.2); Mean Corpuscular Volume 93.6 fl (80-94); Mean Platelet Volume 8.2 fl (7.4-10.4); Monocytes # 1.6 K/mm3 (0.1-1.0); Monocytes % 9.4 % (1.7-9.3); Neutrophils # 14.3 K/mm3 (1.8-7.8); Neutrophils % 86.1 % (37.0-80.0); Platelet Count 358 K/mm3 (142-424); Red Blood Count 3.98 M/mm3 (4.60-6.20); White Blood Count 16.6 K/mm3 (4.8-10.8)
[2021-06-09 06:15] LABS: Alanine Aminotransferase 71 U/L (12-78); Albumin Level 2.8 g/dl (3.5-5.0); Albumin/Globulin Ratio 0.9 (1.1-1.8); Alkaline Phosphatase 66 U/L (38-126); Anion Gap 11.9 mEq/L (5-15); Aspartate Amino Transferase 65 U/L (17-59); Bilirubin,Total 0.6 mg/dl (0.2-1.3); Blood Urea Nitrogen 25 mg/dl (9-20); Carbon Dioxide 26 mmol/L (22.0-30.0); Chloride 109 mmol/L (98-107); Creatinine Clearance Estimated 103 mL/min (50-200); Estimated Glomerular Filt Rate 88 ml/min (>60); GFR (African American) 106 ML/MIN (>60); Globulin 3.2 g/dL (1.3-3.2); Glucose 130 mg/dl (74-100); MANUAL DIFFERENTIAL MANUAL DIFFERENTIAL (MANUAL DIFF); Potassium 3.9 mmoL/L (3.5-5.1); Sodium 143 mmol/L (136-145)
[2021-06-09 06:16] LABS: Lymphocytes % 8 % (10-50); Neutrophils % 88 % (42-76); Platelet Estimate Normal; RBC Morphology Normal; Total Cells Counted 100
--- NOTE | 2021-06-09 09:28 | HMH.ACPN2 ---
Internal Medicine - PN: Subj *Date: 06/10/21 *Time: 07:29 Interval history: reports not feeling as well today - episodes of sob Exam Vital signs and Labs for Last 24 Hours: Temp Pulse Resp BP Pulse Ox 98.7 F 90 21 128/71 95 06/09/21 08:00 06/09/21 08:00 06/09/21 08:00 06/09/21 08:00 06/09/21 08:00 Laboratory Results - last 24 hr 06/08/21 05:00: D-Dimer 0.84 H 06/08/21 05:00: Ferritin 1600 H, C-Reactive Protein 204.4 H 06/09/21 05:05: WBC 16.6 H D, RBC 3.98 L, Hgb 12.2 L, Hct 37.2 L, MCV 93.6, MCH 30.6, MCHC 32.7, RDW 12.0, Plt Count 358, MPV 8.2, Neut % (Auto) 86.1 H, Lymph % (Auto) 4.4 L, [place] % (Auto) 9.4 H, Eos % (Auto) 0.0 L, Baso % (Auto) 0.1, Neut # (Auto) 14.3 H, Lymph # (Auto) 0.7, [place] # (Auto) 1.6 H, Eos # (Auto) 0.0, Baso # (Auto) 0.0, Total Counted 100, Neutrophils % (Manual) 88 H, Band Neutrophils % 4.0, Lymphocytes % (Manual) 8 L, Platelet Estimate Normal, RBC Morphology Normal 06/09/21 05:05: Sodium 143, Potassium 3.9, Chloride 109 H, Carbon Dioxide 26, Anion Gap 11.9, BUN 25 H, Creatinine 0.90, Estimated Creat Clear 103, Estimated GFR 88, Est GFR ( Amer) 106, Glucose 130 H, Calcium 8.0 L, Total Bilirubin 0.6, AST 65 H D, ALT 71 D, Alkaline Phosphatase 66, Total Protein 6.0 L, Albumin 2.8 L, Globulin 3.2, Albumin/Globulin Ratio 0.9 L I & O for Last 24 hours: Intake & Output 06/06/21 06/07/21 06/08/21 06/09/21 11:59 11:59 11:59 11:59 Intake Total 1833 / 1833 1070 / 1070 Output Total 700 / 700 1100 / 1100 Balance 1133 / 1133 -30 / -30 Weight 184 lb 167 lb 1 oz 170 lb 12.8 oz - Constitutional no acute distress - *Routine HEENT Exam Head: Present: normocephalic Eye: Present: EOMI, PERRL ENT: Present: mucous membranes dry - *Routine Neck Exam Present: supple. Absent: JVD - *Routine Respiratory Exam Present: decreased breath sounds - *Routine Cardiovascular Exam Present: RRR, murmur - *Routine Abdominal Exam Present: soft - *Routine Extremities Exam Absent: calf tenderness - *Routine Skin Exam Present: intact - *Routine Neurological Exam Present: alert, oriented X3, CN II-XII intact. Absent: motor deficit - Routine Psychiatric Exam Present: normal affect Assessment and Plan (1) Enlarged heart Status: Acute Category: Medical Code(s): I51.7 - Cardiomegaly (2) COVID-19 Status: Acute Category: Medical Code(s): U07.1 - COVID-19 (3) Respiratory failure with hypoxia Status: Acute Qualifiers: Chronicity: acute Qualified Code(s): J96.01 - Acute respiratory failure with hypoxia Category: Medical Code(s): J96.91 - Respiratory failure, unspecified with hypoxia (4) COVID-19 virus infection Status: Acute Category: Medical Code(s): U07.1 - COVID-19 (5) Chest pain Status: Acute Qualifiers: Chest pain type: unspecified Qualified Code(s): R07.9 - Chest pain, unspecified Category: Medical Code(s): R07.9 - Chest pain, unspecified (6) CAD (coronary artery disease) Status: Chronic Qualifiers: Coronary Disease-Associated Artery/Lesion type: [place] artery [place] vs. transplanted heart: [place] heart Associated angina: without angina Qualified Code(s): I25.10 - Atherosclerotic heart disease of [place] coronary artery without angina pectoris Category: Medical Code(s): I25.10 - Atherosclerotic heart disease of [place] coronary artery without angina pectoris (7) HLD (hyperlipidemia) Status: Chronic Qualifiers: Hyperlipidemia type: mixed hyperlipidemia Qualified Code(s): E78.2 - Mixed hyperlipidemia Category: Medical Code(s): E78.5 - Hyperlipidemia, unspecified (8) HTN (hypertension) Status: Chronic Qualifiers: Hypertension type: essential hypertension Category: Medical Code(s): I10 - Essential (primary) hypertension
--- NOTE | 2021-06-09 09:30 | XR_ITS ---
PROCEDURE INFORMATION: Exam: XR Chest Exam date and time: 06/09/2021 9:30 AM Age: 56 years old Clinical indication: Condition or disease; Other: Covid; Additional info: [id number] TECHNIQUE: Imaging protocol: XR of the chest. Views: 1 view. COMPARISON: CR XR CHEST PORTABLE 06/08/2021 4:26 AM FINDINGS: Lungs: Patchy airspace opacities in the right greater than left lungs. Pleural spaces: Unremarkable. No pleural effusion. No pneumothorax. Heart/Mediastinum: Unremarkable. No cardiomegaly. Bones/joints: Unremarkable. IMPRESSION: Patchy right greater than left airspace opacities compatible with infection
--- NOTE | 2021-06-09 17:05 | PC.NURSE ---
HE IS AOX4, ABLE TO MAKE NEEDS KNOWN TO STAFF, VAPOTHERM SETTINGS ARE 40LPM/100%O2, WITH NON-REBREATHER PLACED ON TOP OF THAT WITH 15LPM. APPETITE HAS NO IMPROVED THIS SHIFT, ABD IS SOFT AND NON-TENDER WITH ACTIVE BOWEL SOUNDS, HE XIN N/V/D. PT DID HAVE ONE EPISODE IN WHICH HE REMOVED HIS VAPOTHERM AND NON-REBREATHER TO URINATE AT THE BEDSIDE. NURSE ENTERED ROOM AND REAPPLIED O2 SUPPORT, VS HAVE BEEN STABLE OTHERWISE.
--- NOTE | 2021-06-09 21:59 | PC.NURSE ---
RESPIRATORY CARE NOTE: 2145-PT WAS ENCOURAGED TO LAY PRONE, OR ROTATE SIDE TO SIDE, WHILE SLEEPING. IT WAS EXPLAINED THAT REMOVING PRESSURE FROM THE BACK SIDE OF THE LUNGS IS IMPERATIVE IN IMPROVING OXYGENATION.
[2021-06-10] VITALS (11 sets, daily range): BP systolic 113–140; BP diastolic 63–90; PULSE 60–100; RESP 20–34; TEMP 36.4–37.3; O2SAT 92–100; BMI 25.4
--- NOTE | 2021-06-10 04:39 | PC.NURSE ---
Pt A&OX4, has rested well t/o the night. Pt was reminded t/o the shift to prone. No c/o pain, SOA . Vital signs stable, no apparent distress noted at this time. Pt call bowers within reach, will continue to monitor.
[2021-06-10 06:08] LABS: Basophils % 0.2 % (0.1-2.0); Hemoglobin 13.1 g/dL (14.1-18.0); Lymphocytes # 0.8 K/mm3 (0.7-4.5); Lymphocytes % 5.4 % (10-50); Mean Corpuscular HGB Conc 32.8 g/dL (31.8-35.4); Mean Corpuscular Hemoglobin 30.7 pg (27.0-31.2); Mean Corpuscular Volume 93.5 fl (80-94); Monocytes # 1.4 K/mm3 (0.1-1.0); Monocytes % 9.6 % (1.7-9.3); Neutrophils # 12.7 K/mm3 (1.8-7.8); Neutrophils % 84.9 % (37.0-80.0); Platelet Count 410 K/mm3 (142-424); Red Blood Count 4.28 M/mm3 (4.60-6.20); Red Cell Distribution Width 12.1 % (11.5-17.5)
[2021-06-10 06:22] LABS: MANUAL DIFFERENTIAL MANUAL DIFFERENTIAL (MANUAL DIFF)
[2021-06-10 06:25] LABS: Alanine Aminotransferase 95 U/L (12-78); Albumin Level 3.2 g/dl (3.5-5.0); Albumin/Globulin Ratio 0.9 (1.1-1.8); Alkaline Phosphatase 88 U/L (38-126); Anion Gap 13.4 mEq/L (5-15); Aspartate Amino Transferase 92 U/L (17-59); Bilirubin,Total 0.7 mg/dl (0.2-1.3); Blood Urea Nitrogen 27 mg/dl (9-20); Calcium 8.5 mg/dl (8.4-10.2); Carbon Dioxide 27 mmol/L (22.0-30.0); Chloride 107 mmol/L (98-107); Creatinine Clearance Estimated 101 mL/min (50-200); Estimated Glomerular Filt Rate 88 ml/min (>60); GFR (African American) 106 ML/MIN (>60); Globulin 3.4 g/dL (1.3-3.2); Glucose 132 mg/dl (74-100); Potassium 4.4 mmoL/L (3.5-5.1); Sodium 143 mmol/L (136-145); Total Protein,Serum 6.6 g/dl (6.3-8.2)
[2021-06-10 06:57] LABS: Lymphocytes % 8 % (10-50); Monocytes % 2 % (2-9); Neutrophils % 83 % (42-76); Platelet Estimate Normal; RBC Morphology Normal; Total Cells Counted 100
--- NOTE | 2021-06-10 08:50 | XR_ITS ---
PROCEDURE INFORMATION: Exam: XR Chest Exam date and time: 06/10/2021 8:50 AM Age: 56 years old Clinical indication: Shortness of breath; Additional info: Covid pna// follow up in icu TECHNIQUE: Imaging protocol: XR of the chest. Views: 1 view. COMPARISON: CR XR CHEST PORTABLE 06/09/2021 9:38 AM FINDINGS: Lungs: Patchy interstitial and alveolar airspace disease. Edema and/or pneumonia. Pleural spaces: Unremarkable. No pleural effusion. No pneumothorax. Heart/Mediastinum: Unremarkable. No cardiomegaly. Bones/joints: Unremarkable. IMPRESSION: Patchy interstitial and alveolar airspace disease. Edema and/or pneumonia. Covid within the differential diagnosis.Allowing for differences in technique, minimal if any interval change from earlier reference study stated above.
--- NOTE | 2021-06-10 09:06 | HMH.ACPN2 ---
Internal Medicine - PN: Subj *Date: 06/10/21 *Time: 09:06 Interval history: pt reports feeling better Exam Vital signs and Labs for Last 24 Hours: Temp Pulse Resp BP Pulse Ox 98.3 F 82 30 H 133/77 98 06/10/21 08:00 06/10/21 08:00 06/10/21 08:00 06/10/21 08:00 06/10/21 08:00 Laboratory Results - last 24 hr 06/10/21 05:00: WBC 15.0 H, RBC 4.28 L, Hgb 13.1 L, Hct 40.0 L, MCV 93.5, MCH 30.7, MCHC 32.8, RDW 12.1, Plt Count 410, MPV 8.0, Neut % (Auto) 84.9 H, Lymph % (Auto) 5.4 L, [place] % (Auto) 9.6 H, Eos % (Auto) 0.0 L, Baso % (Auto) 0.2, Neut # (Auto) 12.7 H, Lymph # (Auto) 0.8, [place] # (Auto) 1.4 H, Eos # (Auto) 0.0, Baso # (Auto) 0.0, Total Counted 100, Neutrophils % (Manual) 83 H, Band Neutrophils % 7.0, Lymphocytes % (Manual) 8 L, Monocytes % (Manual) 2, Platelet Estimate Normal, RBC Morphology Normal 06/10/21 05:00: Sodium 143, Potassium 4.4, Chloride 107, Carbon Dioxide 27, Anion Gap 13.4, BUN 27 H, Creatinine 0.90, Estimated Creat Clear 101, Estimated GFR 88, Est GFR ( Amer) 106, Glucose 132 H, Calcium 8.5, Total Bilirubin 0.7, AST 92 H D, ALT 95 H D, Alkaline Phosphatase 88, Total Protein 6.6, Albumin 3.2 L D, Globulin 3.4 H, Albumin/Globulin Ratio 0.9 L I & O for Last 24 hours: Intake & Output 06/07/21 06/08/21 06/09/21 06/10/21 11:59 11:59 11:59 11:59 Intake Total 1833 / 1833 1290 / 1290 770 / 770 Output Total 700 / 700 1100 / 1100 1250 / 1250 Balance 1133 / 1133 190 / 190 -480 / -480 Weight 184 lb 167 lb 1 oz 170 lb 12.8 oz 167 lb 11.2 oz - Constitutional average body habitus - *Routine HEENT Exam Head: Present: normocephalic Eye: Present: EOMI, PERRL ENT: Present: mucous membranes dry - *Routine Neck Exam Present: supple. Absent: JVD - *Routine Respiratory Exam Present: decreased breath sounds - *Routine Cardiovascular Exam Present: RRR - *Routine Abdominal Exam Present: soft - *Routine Extremities Exam Absent: calf tenderness - *Routine Skin Exam Present: intact - *Routine Neurological Exam Present: alert, CN II-XII intact - Routine Psychiatric Exam Present: normal affect Assessment and Plan (1) Enlarged heart Status: Acute Category: Medical Code(s): I51.7 - Cardiomegaly (2) COVID-19 Status: Acute Category: Medical Code(s): U07.1 - COVID-19 (3) Respiratory failure with hypoxia Status: Acute Qualifiers: Chronicity: acute Qualified Code(s): J96.01 - Acute respiratory failure with hypoxia Category: Medical Code(s): J96.91 - Respiratory failure, unspecified with hypoxia (4) COVID-19 virus infection Status: Acute Category: Medical Code(s): U07.1 - COVID-19 (5) Chest pain Status: Acute Qualifiers: Chest pain type: unspecified Qualified Code(s): R07.9 - Chest pain, unspecified Category: Medical Code(s): R07.9 - Chest pain, unspecified (6) CAD (coronary artery disease) Status: Chronic Qualifiers: Coronary Disease-Associated Artery/Lesion type: [place] artery [place] vs. transplanted heart: [place] heart Associated angina: without angina Qualified Code(s): I25.10 - Atherosclerotic heart disease of [place] coronary artery without angina pectoris Category: Medical Code(s): I25.10 - Atherosclerotic heart disease of [place] coronary artery without angina pectoris (7) HLD (hyperlipidemia) Status: Chronic Qualifiers: Hyperlipidemia type: mixed hyperlipidemia Qualified Code(s): E78.2 - Mixed hyperlipidemia Category: Medical Code(s): E78.5 - Hyperlipidemia, unspecified (8) HTN (hypertension) Status: Chronic Qualifiers: Hypertension type: essential hypertension Category: Medical Code(s): I10 - Essential (primary) hypertension
--- NOTE | 2021-06-10 10:54 | PC.NURSE ---
dr parkinson gave verbal order to hold metoprolol unless systolic bp >180.
--- NOTE | 2021-06-10 19:39 | PC.NURSE ---
Pt alert and oriented and no acute changes has occurred. Remains on vapotherm and non rebreather at this time and is sitting on side of bed.
[2021-06-11] VITALS (39 sets, daily range): BP systolic 95–150; BP diastolic 64–91; PULSE 48–140; RESP 22–97; TEMP 36.4–37.2; O2SAT 77–100; BMI 24.5
--- NOTE | 2021-06-11 | ECG_ITS ---
APPROVED REPORT Exam: Resting ECG HR:127 bpm ECG Measurements Heart Rate 127 AXES QRSd 84 QRS 68 QT 348 T 48 QTc 505 Conclusion Atrial fibrillation with rapid ventricular response with premature ventricular or aberrantly conducted complexes Nonspecific ST and T wave abnormality, probably digitalis effect Abnormal ECG Electronically signed by : Carlos Woodward MD 06/11/2021 18:06:50
--- NOTE | 2021-06-11 00:52 | XR_ITS ---
PROCEDURE INFORMATION: Exam: XR Chest Exam date and time: 06/11/2021 12:52 AM Age: 56 years old Clinical indication: Other: Decreasing o2 sats covid patient; Additional info: Decreasing 02 sats covid PT TECHNIQUE: Imaging protocol: XR of the chest. Views: 1 view. COMPARISON: CR XR CHEST PORTABLE 06/10/2021 9:27 AM FINDINGS: Limited inspiration and penetration of the chest. Lordotic projection submitted. Lungs: Interstitial infiltrative changes present within right mid and lower lung zones and at the left lung base. Similar findings noted on prior examination of 06/10/2021. No consolidation. Pleural spaces: Unremarkable. No pleural effusion. No pneumothorax. Heart/Mediastinum: Unremarkable. No cardiomegaly. Bones/joints: Unremarkable. IMPRESSION: The degree and distribution of interstitial changes within both lung graves is stable since prior examination of 06/10/2021.
[2021-06-11 01:04] LABS: ABG Base Excess 0.9 mmol/L (-2.4-2.3); ABG Oxygen Saturation 86 % (90-100); ABG PCO2 31.2 mmhg (35.0-45.0)
[2021-06-11 01:12] LABS: ABG PO2 48.8 mmhg (80-100); Allen's Test ACCEPTABLE; Source L RADIAL
--- NOTE | 2021-06-11 01:57 | PC.NURSE ---
Pt was placed on bipap for O2 sats decreasing into low 80s while on vapotherm 40LPM 100% FiO2 and non-rebreather. He was given IV ativan prior to placement on bipap. Respiratory is 58 but he decreases to 29 when educated to slow down his breathing but his rate increases back to high 50s as soon as staff exits room. Respiratory is in his room at this time.
--- NOTE | 2021-06-11 04:01 | PC.NURSE ---
Suri Valadez updated on patient's status and that the MD rack production worker and lap regulator have been consulted. Several medications have been given in attempt to calm and decrease respirations. Pt's current respiratory rate is 43. Respiratory rate varies between 41-51. Dr. Bradley given order to intubate patient. information systems supervisor updated on patient's condition and that his has been updated. His is on her way to the hospital at this time.
--- NOTE | 2021-06-11 04:05 | PC.NURSE ---
Paged Dr Bradley due to pts respirations increasing, and [address] Bradley instructed to intubate pt at this time.
--- NOTE | 2021-06-11 05:21 | XR_ITS ---
PROCEDURE INFORMATION: Exam: XR Chest Exam date and time: 06/11/2021 5:21 AM Age: 56 years old Clinical indication: Device placement; Ett placement (vent status); Additional info: PT intubated TECHNIQUE: Imaging protocol: XR of the chest. Views: 1 view. COMPARISON: CR XR CHEST PORTABLE 06/11/2021 1:01 AM FINDINGS: Tubes, catheters and devices: Endotracheal tube with tip 2.3 cm above the adriane. It may be withdrawn at least 1 cm. Lungs: Ill-defined bilateral mid and lower lung opacities. Pleural spaces: Unremarkable. No pleural effusion. No pneumothorax. Heart/Mediastinum: Unremarkable. No cardiomegaly. Bones/joints: Unremarkable. IMPRESSION: 1. Endotracheal tube with tip 2.3 cm above the adriane. It may be withdrawn at least 1 cm. 2. Suspicion for ill-defined bilateral mid and lower lung infiltrates.
--- NOTE | 2021-06-11 05:29 | PC.NURSE ---
ETT 24 @ the lip per Dr. Durbin after visualizing x-ray.
--- NOTE | 2021-06-11 05:29 | PC.NURSE ---
Current vent settings: AC mode, TV 440 Rate 24 PEEP 14 FiO2 100%
--- NOTE | 2021-06-11 06:11 | PC.NURSE ---
05:04- 5mg versed given 05:06- propofol 40mcg/kg/min 05:07- increased propofol to 60mcg/kg/min 05:07 increased propofol to 80mcg/kg/min 05:09 etomidate 10mg given 05:10 rocuronium 5mg given 05:11 propofol decreased to 40mcg/kg/min 05:12 bp 76/45 05:13 tube in 7.5 ETT 25 at lip 05:14 b/p 84/62, 02 88% 05:15 02 100% 05:19 b/p 149/93, 02 100%, pulse rate 88 involved in pt care Dr Gifty Addison, RT Ethel, RT Gene, RN Sylvia, GORDON Jimenez, SRNA Yelena, GORDON Rudd RN
[2021-06-11 06:34] LABS: Alanine Aminotransferase 112 U/L (12-78); Albumin Level 2.9 g/dl (3.5-5.0); Albumin/Globulin Ratio 0.9 (1.1-1.8); Alkaline Phosphatase 87 U/L (38-126); Anion Gap 14.1 mEq/L (5-15); Aspartate Amino Transferase 76 U/L (17-59); Bilirubin,Total 0.7 mg/dl (0.2-1.3); Blood Urea Nitrogen 28 mg/dl (9-20); Calcium 7.9 mg/dl (8.4-10.2); Carbon Dioxide 25 mmol/L (22.0-30.0); Chloride 108 mmol/L (98-107); Creatinine Clearance Estimated 98 mL/min (50-200); Estimated Glomerular Filt Rate 88 ml/min (>60); GFR (African American) 106 ML/MIN (>60); Globulin 3.2 g/dL (1.3-3.2); Glucose 166 mg/dl (74-100); Potassium 4.1 mmoL/L (3.5-5.1); Sodium 143 mmol/L (136-145); Total Protein,Serum 6.1 g/dl (6.3-8.2)
[2021-06-11 06:43] LABS: ABG Base Excess -1.5 mmol/L (-2.4-2.3); ABG HCO3 24.5 mmhg (22.0-26.0); ABG Oxygen Saturation 85 % (90-100); ABG PCO2 48.5 mmhg (35.0-45.0); ABG PH 7.32 mmol/L (7.35-7.45); ABG PO2 55.7 mmhg (80-100)
[2021-06-11 06:53] LABS: Basophils % 0.3 % (0.1-2.0); Hematocrit 36.6 % (42.0-52.0); Hemoglobin 11.7 g/dL (14.1-18.0); Lymphocytes # 0.7 K/mm3 (0.7-4.5); Mean Corpuscular HGB Conc 32.1 g/dL (31.8-35.4); Mean Corpuscular Hemoglobin 30.7 pg (27.0-31.2); Mean Corpuscular Volume 95.6 fl (80-94); Mean Platelet Volume 8.3 fl (7.4-10.4); Monocytes # 1.3 K/mm3 (0.1-1.0); Monocytes % 9.4 % (1.7-9.3); Neutrophils # 11.3 K/mm3 (1.8-7.8); Neutrophils % 85.2 % (37.0-80.0); Platelet Count 268 K/mm3 (142-424); Red Blood Count 3.82 M/mm3 (4.60-6.20); Red Cell Distribution Width 12.3 % (11.5-17.5); White Blood Count 13.3 K/mm3 (4.8-10.8)
[2021-06-11 06:55] LABS: MANUAL DIFFERENTIAL MANUAL DIFFERENTIAL (MANUAL DIFF)
--- NOTE | 2021-06-11 06:55 | PC.NURSE ---
PEEP increased to [address] Wellington order.
--- NOTE | 2021-06-11 07:25 | HMH.RR ---
Acute Rapid Response Note - Subjective Date Responded: 06/11/21 Time Responded: 05:30 Provider Note: pt with resp failure and requiring intubation sec to covid-19 - Objective Findings: Vital Signs - Last 4 Hours Temperature 97.9 F 06/11/21 06:13 Temperature Source Rectal 06/11/21 06:13 Pulse Rate 71 06/11/21 06:13 Respiratory Rate 24 06/11/21 06:13 Blood Pressure 95/64 L 06/11/21 06:13 Blood Pressure Mean 74 06/11/21 06:13 Blood Pressure Source Automatic Cuff 06/11/21 06:13 Blood Pressure Position Supine 06/11/21 05:45 02 Sat by Pulse Oximetry 83 L 06/11/21 06:13 Oxygen Delivery Method 06/11/21 06:14 Oxygen Flow Rate (LPM) 40 06/10/21 20:00 Lab Results for Past 12 Hours 06/11/21 05:46: Sodium 143, Potassium 4.1, Chloride 108 H, Carbon Dioxide 25, Anion Gap 14.1, BUN 28 H, Creatinine 0.90, Estimated Creat Clear 98, Estimated GFR 88, Est GFR ( Amer) 106, Glucose 166 H, Calcium 7.9 L, Total Bilirubin 0.7, AST 76 H, ALT 112 H, Alkaline Phosphatase 87, Total Protein 6.1 L, Albumin 2.9 L, Globulin 3.2, Albumin/Globulin Ratio 0.9 L 06/11/21 05:46: WBC 13.3 H, RBC 3.82 L, Hgb 11.7 L, Hct 36.6 L, MCV 95.6 H, MCH 30.7, MCHC 32.1, RDW 12.3, Plt Count 268 D, MPV 8.3, Neut % (Auto) 85.2 H, Lymph % (Auto) 5.0 L, [place] % (Auto) 9.4 H, Eos % (Auto) 0.0 L, Baso % (Auto) 0.3, Neut # (Auto) 11.3 H, Lymph # (Auto) 0.7, [place] # (Auto) 1.3 H, Eos # (Auto) 0.0, Baso # (Auto) 0.0 06/11/21 01:02: Specimen Source L radial, O2 % Nrb/vapotherm, ABG pH 7.50 H, ABG pCO2 31.2 L, ABG pO2 48.8 L, ABG HCO3 24.0, ABG Total CO2 25.0, ABG O2 Saturation 86 L*, ABG Base Excess 0.9, Luis Test Acceptable My Orders Category Date Time Status XR chest portable Stat Exams 06/11/21 05:21 Taken 0.9 % Sodium Chloride [Sod Chlor 0.9% 100mL Bag] 80 ml Med 06/11/21 05:45 Active Fentanyl Citrate/Pf [Fentanyl 250mcg/5mL Vial] 1,000 mcg IV 25 mcg/hr Etomidate [Amidate 40mg/20mL vial] Med 06/11/21 05:35 Discontinued 10 mg IV ONCE ONE Fentanyl Citrate/Pf [Fentanyl 100mcg/2mL vial] Med 06/11/21 05:37 Active 12.5 mcg IV [id number] PRN Midazolam HCl/Pf [Midazolam 5mg/mL 1mL vial] Med 06/11/21 05:45 Discontinued 5 mg IV ONCE ONE Rocuronium [place] [Zemuron 50mg/5mL vial] Med 06/11/21 06:15 Discontinued 5 mg IV ONCE ONE propofoL [Diprivan 10mg/mL 100mL Bottle] 100 ml Med 06/11/21 05:45 Active IV 5 mcg/kg/min Rapid Response Exam - General General appearance: lethargic - Head Head exam: atraumatic - Eye Eye exam: Present: PERRL, EOMI - ENT ENT exam: Present: mucous membranes dry - Neck Neck exam: Present: trachea midline - Respiratory Respiratory exam: Present: respiratory distress - Cardiovascular Cardiovascular exam: Present: tachycardia - Abdominal Exam Abdominal exam: Present: soft - Extremities Exam Extremities exam: Absent: calf tenderness - Neurological Exam Neurological exam: Present: other (lethargic ) - Skin Skin exam: Absent: rash RR Procedures/Assess/Plan - Bedside Intubation Time Out Performed: No Sedative: Etomidate Mg given: 10 Paralytic: Succinylcholine Mg given: 100 Laryngoscope: Shell Tube size: 7.5 Tube uncuffed: No Secured location: lips Placement confirmation: visualized tube passing through cords, equal breath sounds bilaterally, confirmation by capnometry Patient tolerated procedure intubation: no complications Intubation Complications: difficult intubation (1) Enlarged heart Status: Acute (2) COVID-19 Status: Acute (3) Respiratory failure with hypoxia Status: Acute Qualifiers: Chronicity: acute Qualified Code(s): J96.01 - Acute respiratory failure with hypoxia (4) COVID-19 virus infection Status: Acute (5) Chest pain Status: Acute Qualifiers: Chest pain type: unspecified Qualified Code(s): R07.9 - Chest pain, unspecified (6) CAD (coronary artery disease) Status: Chronic Qualifiers:
--- NOTE | 2021-06-11 08:24 | PC.NURSE ---
notified Dr Zuniga office that an order for a central line was placed. [id number]
--- NOTE | 2021-06-11 09:14 | PC.NURSE ---
Emergent verbal consent for Central line placement verified with myself and Dr Quinteros with the patients at 0820. time out performed at 0850.
--- NOTE | 2021-06-11 09:16 | PC.NURSE ---
telephone orders received from Dr Bradley at 0815. pt needs central line consult, 1 liter LR bolus, 4mg versed now.
--- NOTE | 2021-06-11 09:17 | HMH.GSCON ---
*Admission Date: 06/07/21 *History of present illness: Patient is a 56-year-old male from [place] with history of hypertension, cardio myopathy, hyperlipidemia who had tested positive for COVID-19 on 06/02/2021. He had worsening shortness of breath and presented to the emergency department on 06/07/2021. This morning he required emergent intubation and mechanical ventilation after rapid response was called. Surgery was consulted for central line placement. Review of Systems - Review of Systems Review of systems:: unable to obtain - *Neurologic Reports weakness, Denies abnormal walking, Denies abnormal hearing, Denies abnormal speech, Denies dizziness, Denies headache(s) [facility] History I have reviewed the patient's past medical history: Yes Medical History: Reports:: Hyperlipidemia, Hypertension, Myocardial Infarction *Have you ever received a pneumonia vaccine?: No *Have you received a flu vaccine this season?: No Laterality Cases: Bilateral: Tonsillectomy, Other Other Surgeries: Yes: No Previous Surgery Amputation: No Fractures: No - *Social History Smoking Status: Never smoker Alcohol Intake: current Alcohol Intake Frequency:: holidays/special occasions only Substance Use Type: denies use Last Used Substance: unknown *Occupational Status:: employed, disabled *Travel in the last 8 weeks: None Family Hx:: Coronary Artery Disease, Hypertension, Asthma Meds Home Medications Medication Instructions Recorded Confirmed Type aspirin 81 mg tablet,delayed 81 mg PO DAILY 10/10/20 06/07/21 History release metoprolol succinate 25 mg 25 mg PO DAILY #90 tab 02/28/21 06/07/21 Rx tablet,extended release 24 hr lisinopril 10 mg tablet 10 mg PO DAILY #30 tab 03/02/21 06/07/21 Rx albuterol sulfate 90 mcg/actuation 1 inh INHALATION QID PRN #8.5 g 03/08/21 06/07/21 Rx aerosol inhaler atorvastatin 40 mg tablet 40 mg PO HS #30 tab 04/12/21 06/07/21 Rx Allergies Allergy/AdvReac Type Severity Reaction Status Date / Time No Known Allergies Allergy Verified 06/02/21 14:11 Exam Vital signs and Labs for Last 24 Hours: Temp Pulse Resp BP Pulse Ox 97.9 F 71 24 95/64 L 83 L 06/11/21 06:13 06/11/21 06:13 06/11/21 06:13 06/11/21 06:13 06/11/21 06:13 Laboratory Results - last 24 hr 06/11/21 01:02: Specimen Source L radial, O2 % Nrb/vapotherm, ABG pH 7.50 H, ABG pCO2 31.2 L, ABG pO2 48.8 L, ABG HCO3 24.0, ABG Total CO2 25.0, ABG O2 Saturation 86 L*, ABG Base Excess 0.9, Luis Test Acceptable 06/11/21 05:46: WBC 13.3 H, RBC 3.82 L, Hgb 11.7 L, Hct 36.6 L, MCV 95.6 H, MCH 30.7, MCHC 32.1, RDW 12.3, Plt Count 268 D, MPV 8.3, Neut % (Auto) 85.2 H, Lymph % (Auto) 5.0 L, [place] % (Auto) 9.4 H, Eos % (Auto) 0.0 L, Baso % (Auto) 0.3, Neut # (Auto) 11.3 H, Lymph # (Auto) 0.7, [place] # (Auto) 1.3 H, Eos # (Auto) 0.0, Baso # (Auto) 0.0 06/11/21 05:46: Sodium 143, Potassium 4.1, Chloride 108 H, Carbon Dioxide 25, Anion Gap 14.1, BUN 28 H, Creatinine 0.90, Estimated Creat Clear 98, Estimated GFR 88, Est GFR ( Amer) 106, Glucose 166 H, Calcium 7.9 L, Total Bilirubin 0.7, AST 76 H, ALT 112 H, Alkaline Phosphatase 87, Total Protein 6.1 L, Albumin 2.9 L, Globulin 3.2, Albumin/Globulin Ratio 0.9 L I & O for Last 24 hours: Intake & Output 06/08/21 06/09/21 06/10/21 06/11/21 11:59 11:59 11:59 11:59 Intake Total 1833 / 1833 1290 / 1290 770 / 770 755 / 755 Output Total 700 / 700 1100 / 1100 1250 / 1250 1020 / 1020 Balance 1133 / 1133 190 / 190 -480 / -480 -265 / -265 Weight 167 lb 1 oz 170 lb 12.8 oz 167 lb 11.2 oz 162 lb 1.6 oz - Constitutional Comments: Patient intubated and sedated and mechanically ventilated. Results - Labs 06/11/21 05:46 06/11/21 05:46 Laboratory Results - last 24 hr 06/11/21 01:02: Specimen Source L radial, O2 % Nrb/vapotherm, ABG pH 7.50 H, ABG pCO2 31.2 L, ABG pO2 48.8 L, ABG HCO3 24.0, ABG Total CO2 25.0, ABG O2 Saturation 86 L*, ABG Base Excess 0.9, Luis Test Acceptable 06/11/21 05:46: W
--- NOTE | 2021-06-11 09:20 | HMH.OPNOTE ---
Date of procedure: 06/11/21 Pre-op Diagnosis:: Need for central venous access Post-op Diagnosis:: Same Procedure performed:: Placement of 7 [place] nontunneled triple-lumen catheter in left subclavian vein Surgeon:: Moed Quinteros MD Anesthesia: local Estimated blood loss (mL): 15 Operative findings:: Seemingly normal anatomy Operative note:: Consent was obtained. Patient was positioned in Trendelenburg position. Left neck and chest were prepped and draped in the standard surgical fashion. Local anesthetic was infiltrated inferior to the left clavicle medial to the deltopectoral groove. 18-gauge catheter was inserted manipulating this posterior to the clavicle. With several passes of the needle left subclavian vein was cannulated with good return of venous blood flow. Guidewire was inserted. Small incision was made at the guidewire insertion site. Subcutaneous tissues were dilated. 7 [place] triple-lumen catheter was threaded over the guidewire using Seldinger technique. Guidewire was removed. Catheter was secured to the skin at approximately the 15 cm hugh. All ports aspirated and flushed without difficulty. Clean dry sterile dressing was applied. Chest x-ray pending at the time of this dictation. Condition: critical Disposition: no change Complications:: None immediately apparent
--- NOTE | 2021-06-11 09:27 | XR_ITS ---
PROCEDURE: XR CHEST PORTABLE CLINICAL HISTORY: CENTRAL LINE PLACEMENT COMPARISON: CT CT CHEST WO CON from 11/06/2020 CR XR CHEST PORTABLE from 06/10/2021 CR XR CHEST PORTABLE from 06/11/2021 CR XR CHEST PORTABLE from 06/11/2021 FINDINGS: 9:16 a.m., 06/11/2021 Left subclavian central venous line is present. The tip is in the region the SVC. No evidence of pneumothorax. Nasogastric tube tip is in the region of the body of the stomach. Endotracheal tube tip is in good position 3 cm above the adriane. There is mild diffuse bilateral haziness of the lungs with some sparing of the left upper lobe consistent with bilateral pneumonia. This appears slightly worse in the right midlung unchanged on the left. IMPRESSION: Tubes and lines are in good position. No evidence of pneumothorax. Continued bilateral pneumonia Dictated by: Luis Ruiz MD 06/11/2021 09:43 Luis Ruiz MD in OV 06/11/2021 09:43
[2021-06-11 09:48] LABS: Hypochromasia 1+; Lymphocytes % 2 % (10-50); Macrocytosis 1+; Monocytes % 6 % (2-9); Neutrophils % 92 % (42-76); Platelet Estimate Normal; Total Cells Counted 100
--- NOTE | 2021-06-11 09:51 | HMH.PULMPN ---
Internal Medicine - PN: Subj *Date: 06/11/21 *Time: 11:47 Interval history: Patient respiratory status continued to decline over night needing mechanical ventilatory support. Exam - Constitutional Constitutional:: Present: comfortable - HENMT Exam HENMT: Present: normocephalic - Eye Exam Eyes:: Present: normal appearance both eyes and related structures - Neck Exam Neck:: Present: normal visual inspection - Respiratory Exam Respiratory:: Present: respiratory distress, crackles - Cardiovascular Exam Cardiac:: Present: S1, S2 - GI Exam GI:: Present: soft - Skin Exam Skin: Present: warm, no rash - Neurological Exam Intubated and sedated - Extremities Exam Extremities: Present: no cyanosis, no clubbing, no edema Assessment and Plan (1) Enlarged heart Status: Acute Category: Medical Code(s): I51.7 - Cardiomegaly (2) COVID-19 Status: Acute Category: Medical Code(s): U07.1 - COVID-19 (3) Respiratory failure with hypoxia Status: Acute Qualifiers: Chronicity: acute Qualified Code(s): J96.01 - Acute respiratory failure with hypoxia Category: Medical Code(s): J96.91 - Respiratory failure, unspecified with hypoxia (4) COVID-19 virus infection Status: Acute Category: Medical Code(s): U07.1 - COVID-19 (5) Chest pain Status: Acute Qualifiers: Chest pain type: unspecified Qualified Code(s): R07.9 - Chest pain, unspecified Category: Medical Code(s): R07.9 - Chest pain, unspecified (6) CAD (coronary artery disease) Status: Chronic Qualifiers: Coronary Disease-Associated Artery/Lesion type: pala artery [place] vs. transplanted heart: pala heart Associated angina: without angina Qualified Code(s): I25.10 - Atherosclerotic heart disease of pala coronary artery without angina pectoris Category: Medical Code(s): I25.10 - Atherosclerotic heart disease of pala coronary artery without angina pectoris (7) HLD (hyperlipidemia) Status: Chronic Qualifiers: Hyperlipidemia type: mixed hyperlipidemia Qualified Code(s): E78.2 - Mixed hyperlipidemia Category: Medical Code(s): E78.5 - Hyperlipidemia, unspecified (8) HTN (hypertension) Status: Chronic Qualifiers: Hypertension type: primary hypertension Qualified Code(s): I10 - Essential (primary) hypertension Category: Medical Code(s): I10 - Essential (primary) hypertension (9) Acute respiratory failure due to COVID-19 Status: Acute Category: Medical Code(s): U07.1 - COVID-19; J96.00 - Acute respiratory failure, unspecified whether with hypoxia or hypercapnia - Assessment and plan all Dx Assessment and Plan for all problems:: #Acute hypoxic respiratory failure: #COVID-19 pneumonia: Mr. Valadez is 56-year-old male no prior respiratory complaint presented to the hospital worsening respiratory symptoms 1 day positive for COVID-19 pneumonia. Chest x-ray on admission showed bilateral lower lobe pulmonary infiltrates. On examination patient needing 100% 40 L high flow nasal cannula saturating 90 to 95%. He does not appear to be in any respiratory distress. D-dimer elevated 0.84. CRP elevated at 204. Ferritin at 1600. No evidence of leukocytosis. Renal function stable. Patient respiratory continue to worsen the weekend eventually needing mechanical ventilatory support. CXR this morning only showed minimal worsening of his pulmonary infiltrates. Plan: -Continue mechanical ventilatory support - Continue AnalgoSedation with Propofol and Fentanyl with CPOT gal less than or euqal to 2 and RASS goal of 0 to 1 (Deep sedation) - VAP bundle Elevate head of the bed at 30 to 45 degrees Oral care with chlorhexidne GI ulcer prophylaxis - Famotidine 20mg IV BID Chemical DVT prophylaxis -Follow with tracheal aspirate -CT PE protocol along with lower extremity Doppler. -We will initiate proning protocol -Continue remdesivir, dexamethasone 6 daily and but cert
--- NOTE | 2021-06-11 09:54 | CA_ITS ---
APPROVED REPORT Bilateral Lower Extremity Venous Study for Peanut Picker: CN Indications COVID-19, Hypoxia Vein Imaging CFV (R): compressive, spontaneous, phasic, augmentation SFJ (R): compressive, spontaneous, phasic, augmentation FEM (R): compressive, spontaneous, phasic, augmentation POP (R): compressive, spontaneous, phasic, augmentation DFV (R): compressive, spontaneous, phasic, augmentation PTV (R): compressive, spontaneous, phasic, augmentation GSV (R): compressive, spontaneous, phasic, augmentation SSV (R): compressive, spontaneous, phasic, augmentation Peroneals (R):compressive, spontaneous, phasic, augmentation GAS (R): compressive, spontaneous, phasic, augmentation CFV (L): compressive, spontaneous, phasic, augmentation SFJ (L): compressive, spontaneous, phasic, augmentation FEM (L): compressive, spontaneous, phasic, augmentation POP (L): compressive, spontaneous, phasic, augmentation DFV (L): compressive, spontaneous, phasic, augmentation PTV (L): compressive, spontaneous, phasic, augmentation GSV (L): compressive, spontaneous, phasic, augmentation SSV (L): compressive, spontaneous, phasic, augmentation Peroneals (L):compressive, spontaneous, phasic, augmentation GAS (L): compressive, spontaneous, phasic, augmentation Findings Color flow duplex demonstrates no evidence of DVT of the following bilateral lower extremity Veins:Common Femoral Vein, Femoral Vein, Popliteal Vein, Posterior Tibial Veins, Peroneal Veins, Deep Femoral Vein.Negative for DVT at this time. Conclusion Negative for DVT at this time. Electronically signed by : Luis Ruiz MD 06/11/2021 15:33:57
--- NOTE | 2021-06-11 09:54 | CT_ITS ---
PROCEDURE INFORMATION: Exam: CTA Chest With Contrast Exam date and time: 06/11/2021 9:54 AM Age: 56 years old Clinical indication: Patient HX: Hypoxia, covid 19 TECHNIQUE: Imaging protocol: Computed tomographic angiography of the chest with contrast. 3D rendering (Not supervised by radiologist): MIP and/or 3D reconstructed images were created by the technologist. Radiation optimization: All CT scans at this facility use at least one of these dose optimization techniques: automated exposure control; mA and/or kV adjustment per patient size (includes targeted exams where dose is matched to clinical indication); or iterative reconstruction. Contrast material: ISOVUE; Contrast volume: 70 ml; Contrast route: INTRAVENOUS (IV); COMPARISON: CT CHEST WO CON 11/06/2020 7:27 AM FINDINGS: Tubes, catheters and devices: An enteric tube present, with the distal tip and side port in the stomach below the left diaphragm. Endotracheal tube appears in satisfactory position, tip approximately 3.8 cm above the adriane. Pulmonary arteries: Acute pulmonary emboli. Multiple prominent anterior right upper lobe segmental and subsegmental emboli, some smaller peripheral right middle lobe emboli, and lower lobe emboli scattered through the lungs, suboptimally delineated due to motion. Aorta: No thoracic aortic aneurysm or evidence of dissection in the chest. Lungs: Multiple tiny bilateral pulmonary nodules of up to 6 mm reported on the previous CT of 11/06/2020 are again noted. There are an increased number of nodules in the right lung apex compared with the prior study, with a nodule seen on series 2, image 36, image 38, image 45, image 66. Other nodules seen in the lower lungs and right middle lobe on the prior study are not as well visualized today due to overlying acute infiltrates. There are dense consolidations in the lower lobes with central air bronchograms, consolidations involving the central lung and extending peripherally to the posterior bases with lobulated areas of coalescent density. There are milder coalescent areas of consolidation in the right upper lobe. There are patchy ground-glass infiltrates in both lungs. Pleural spaces: Unremarkable. No significant pleural effusion. No pneumothorax. Heart: The heart is not enlarged. Trace pericardial effusion. RV/LV ratio approximately 1, at the upper limits normal. There is no significant reflux of contrast into the IVC or hepatic veins to suggest acute right heart strain. Lymph nodes: Small calcified mediastinal and right hilar lymph nodes again noted. No significantly enlarged nodes by short axis criteria, compared with the prior exam. Bones/joints: There are spinal degenerative changes, with multilevel disc narrrowing and spondylosis.There is no evidence of acute fracture. Soft tissues: There are no soft tissue masses or fluid collections. IMPRESSION: 1. Acute pulmonary emboli, with some prominent emboli in the anterior right upper lobe, and small emboli scattered through the remainder of lungs. 2. No signs of acute right heart strain. 3. Extensive bilateral pulmonary airspace disease, with consolidations greatest in the lower lobes, and patchy ground-glass opacities throughout. These imaging features can be seen with COVID-19 pneumonia, though are nonspecific and can occur with a variety of infectious and noninfectious processes. 4. Multiple small pulmonary nodules as noted on the previous CT from 11/07/2020, up to approximately 6 mm, partially obscured by acute airspace disease today. These appear more numerous in the right upper lobe, which could be due to acute infection versus underlying neoplasm
--- NOTE | 2021-06-11 10:09 | HMH.ITSTN ---
RN coordinating with respiratory at this time to make sure patient is stable to come to rad department
--- NOTE | 2021-06-11 10:11 | PC.NURSE ---
Per chest xray report, lines and tubes are in good position. ok to use central line per Dr Quinteros as well. [id number]
[2021-06-11 11:49] LABS: Microscopic, Urine URINE MICROSCOPIC (MICROSCOPIC)
--- NOTE | 2021-06-11 13:00 | HMH.ACPN2 ---
Internal Medicine - PN: Subj *Date: 06/11/21 *Time: 19:31 Interval history: Patient decompensated overnight and required intubation. Dr. Quinteros put in a central line. Patient has required pressors. CTA of the chest mistreated several pulmonary emboli. She is currently on a heparin drip after receiving a bolus. He is sedated. He is actively followed with the pulmonary service Exam Vital signs and Labs for Last 24 Hours: Temp Pulse Resp BP Pulse Ox 97.9 F 94 H 24 95/64 L 90 L 06/11/21 06:13 06/11/21 09:39 06/11/21 09:39 06/11/21 06:13 06/11/21 09:39 Laboratory Results - last 24 hr 06/11/21 01:02: Specimen Source L radial, O2 % Nrb/vapotherm, ABG pH 7.50 H, ABG pCO2 31.2 L, ABG pO2 48.8 L, ABG HCO3 24.0, ABG Total CO2 25.0, ABG O2 Saturation 86 L*, ABG Base Excess 0.9, Luis Test Acceptable 06/11/21 05:46: WBC 13.3 H, RBC 3.82 L, Hgb 11.7 L, Hct 36.6 L, MCV 95.6 H, MCH 30.7, MCHC 32.1, RDW 12.3, Plt Count 268 D, MPV 8.3, Neut % (Auto) 85.2 H, Lymph % (Auto) 5.0 L, [place] % (Auto) 9.4 H, Eos % (Auto) 0.0 L, Baso % (Auto) 0.3, Neut # (Auto) 11.3 H, Lymph # (Auto) 0.7, [place] # (Auto) 1.3 H, Eos # (Auto) 0.0, Baso # (Auto) 0.0, Total Counted 100, Neutrophils % (Manual) 92 H, Lymphocytes % (Manual) 2 L, Monocytes % (Manual) 6, Platelet Estimate Normal, Hypochromasia 1+, Macrocytosis 1+ 06/11/21 05:46: Sodium 143, Potassium 4.1, Chloride 108 H, Carbon Dioxide 25, Anion Gap 14.1, BUN 28 H, Creatinine 0.90, Estimated Creat Clear 98, Estimated GFR 88, Est GFR ( Amer) 106, Glucose 166 H, Calcium 7.9 L, Total Bilirubin 0.7, AST 76 H, ALT 112 H, Alkaline Phosphatase 87, Total Protein 6.1 L, Albumin 2.9 L, Globulin 3.2, Albumin/Globulin Ratio 0.9 L I & O for Last 24 hours: Intake & Output 06/08/21 06/09/21 06/10/21 06/11/21 23:59 23:59 23:59 23:59 Intake Total 2903 / 2903 990 / 990 630 / 755 125 / 125 Output Total 1150 / 1150 1450 / 1650 700 / 770 770 / 770 Balance 1753 / 1753 -460 / -660 -70 / -15 -645 / -645 Weight 167 lb 8.821 oz 170 lb 12.8 oz 167 lb 11.2 oz 162 lb 1.6 oz - Constitutional obtunded - *Routine HEENT Exam Head: Present: normocephalic Eye: Absent: conjunctival icterus ENT: Present: mucous membranes moist - *Routine Neck Exam Present: supple. Absent: lymphadenopathy - *Routine Respiratory Exam Present: patient mechanically ventilated - *Routine Cardiovascular Exam Present: RRR - *Routine Abdominal Exam Present: soft, normoactive bowel sounds. Absent: tenderness - *Routine Extremities Exam Absent: cyanosis, clubbing, edema - *Routine Skin Exam Present: warm. Absent: rash - *Routine Neurological Exam Present: altered mental status. Absent: alert, oriented X3 Assessment and Plan (1) Enlarged heart Status: Acute Category: Medical Code(s): I51.7 - Cardiomegaly (2) COVID-19 Status: Acute Category: Medical Code(s): U07.1 - COVID-19 (3) Respiratory failure with hypoxia Status: Acute Qualifiers: Chronicity: acute Qualified Code(s): J96.01 - Acute respiratory failure with hypoxia Category: Medical Code(s): J96.91 - Respiratory failure, unspecified with hypoxia (4) COVID-19 virus infection Status: Acute Category: Medical Code(s): U07.1 - COVID-19 (5) Chest pain Status: Acute Qualifiers: Chest pain type: unspecified Qualified Code(s): R07.9 - Chest pain, unspecified Category: Medical Code(s): R07.9 - Chest pain, unspecified (6) CAD (coronary artery disease) Status: Chronic Qualifiers: Coronary Disease-Associated Artery/Lesion type: [place] artery [place] vs. transplanted heart: [place] heart Associated angina: without angina Qualified Code(s): I25.10 - Atherosclerotic heart disease of [place] coronary artery without angina pectoris Category: Medical Code(s): I25.10 - Atherosclerotic heart disease of [place] coronary artery without angina pectoris (7) HLD (hyperlipidemia) Status: Chronic Jovan
--- NOTE | 2021-06-11 13:24 | HMH.ITSTN ---
tried to bring patient to radiology at 1:00pm, sats dropped and pt too unstable to bring down at this time. nurse will let us know when patient is stable
[2021-06-11 14:23] LABS: Appearance,Urine CLEAR (Clear); Bilirubin,Urine Negative (Negative); Blood, Urine 2+ (Negative); Color,Urine YELLOW (Yellow); Glucose,Urine (UA) Negative (Negative); Ketones,Urine Negative (Negative); Leukocyte Esterase,Urine Negative (Negative); Nitrate,Urine Negative (Negative); Protein,Urine 1+ (Negative); Specific Gravity, Urine >= 1.030 (1.005-1.030); Urobilinogen,Urine 0.2 EU/dl (0.2)
[2021-06-11 14:32] LABS: Bacteria,Urine 3+ /lpf; Mucus,Urine 2+ /lpf; Squamous Epithelial Cell,Urine Occasional #/hpf (0-5)
--- NOTE | 2021-06-11 15:26 | DIET.NUTRFU ---
Addendum entered by Christianne Ruiz 06/15/21 16:56: TF at goal rate and tolerating well- MAP>60, minimal GRV, slightly elevated K, moderate increase BUN, BG avg. 170, weight stable, pt has not had a BM t/o stay- 8d. Recommend bowel regimen if pt continues without BM next 24h. No changes to regimen at this time. Addendum entered by Christianne Ruiz 06/13/21 17:34: TF have not been initiated, MAP>60, recommend initiating as heparin drip is weaned. Recommend IVF until TF is started. Na and Cl high, likely dehydration. Weight stable. Addendum entered by Jayla Noland RDN, EMILIA 06/12/21 10:41: Nutrition consult received to initiate TF. Orders have been entered to begin pt on Pulmocare at 20mL/hr and slowly increase to a goal rate of 51mL/hr continuous with an additional 175mL water flushes q 6h to meet fluid needs. Will continue to monitor and adjust TF as needed. Original Note: Pt intubated and sedated. Previous intakes 25%. Weight down 5# from admission. Recommend early enteral nutrition initiation. MAP>60. Electrolytes WNL. Pt receiving propofol. Not currently receiving IVF. Upon MD order, recommend initiating continuous TF regimen of Pulmocare 1.5 at 20ml/h and advancing by 10ml/h q 8h as tolerated to goal rate of 51ml/h. Pt not currently receiving IVF, water flushes of 175ml q 6h meet additional fluid needs not provided by formula. This regimen provides 1825kcal, 76g protein, 129g cho, 114g fat, and 955ml free water(2000ml total fluids with water flushes). Will monitor pt tolerance, meds, fluids to alter regimen as indicated.
--- NOTE | 2021-06-11 15:42 | HMH.PHAHEP ---
<Arti Ni - Last Filed: 06/11/21 15:42> [facility] Heparin Dosing - Demographic Data Admission date:: 06/07/21 Date: 06/11/21 Time: 15:42 Allergies/Adverse Reactions: Allergies Allergy/AdvReac Type Severity Reaction Status Date / Time No Known Allergies Allergy Verified 06/02/21 14:11 Height: 1.73 m Weight: 73.5 kg - Indication Medication therapy:: Heparin Patient Problems: Current Active Problems COVID-19 virus infection (Acute) COVID-19 (Acute) Respiratory failure with hypoxia (Acute) Enlarged heart (Acute) Acute respiratory failure due to COVID-19 (Acute) PAF (paroxysmal atrial fibrillation) (Acute) Anemia (Acute) Pneumothorax (Acute) Pneumothorax, right (Acute) Anemia (Acute) DONNIE (acute kidney injury) (Acute) CAD (coronary artery disease) (Chronic) HTN (hypertension) (Chronic) HLD (hyperlipidemia) (Chronic) Chest pain (Acute) Desired PTT range:: 50-70 seconds - Labs Anticoagulation Lab Results:: 06/11/21 05:46 Hgb 11.7 L Hct 36.6 L Plt Count 268 D - Monitoring Dose Monitor 1 Date: 06/11/21 Infusion Rate:: 1,300 UNITS/HR Comment:: 6,000 UNIT BOLUS ADP=[id number] - Core Measures Most Recent Labs:: Laboratory Results - last 24 hr 06/11/21 01:02: Specimen Source L radial, O2 % Nrb/vapotherm, ABG pH 7.50 H, ABG pCO2 31.2 L, ABG pO2 48.8 L, ABG HCO3 24.0, ABG Total CO2 25.0, ABG O2 Saturation 86 L*, ABG Base Excess 0.9, Luis Test Acceptable 06/11/21 05:46: WBC 13.3 H, RBC 3.82 L, Hgb 11.7 L, Hct 36.6 L, MCV 95.6 H, MCH 30.7, MCHC 32.1, RDW 12.3, Plt Count 268 D, MPV 8.3, Neut % (Auto) 85.2 H, Lymph % (Auto) 5.0 L, [place] % (Auto) 9.4 H, Eos % (Auto) 0.0 L, Baso % (Auto) 0.3, Neut # (Auto) 11.3 H, Lymph # (Auto) 0.7, [place] # (Auto) 1.3 H, Eos # (Auto) 0.0, Baso # (Auto) 0.0, Total Counted 100, Neutrophils % (Manual) 92 H, Lymphocytes % (Manual) 2 L, Monocytes % (Manual) 6, Platelet Estimate Normal, Hypochromasia 1+, Macrocytosis 1+ 06/11/21 05:46: Sodium 143, Potassium 4.1, Chloride 108 H, Carbon Dioxide 25, Anion Gap 14.1, BUN 28 H, Creatinine 0.90, Estimated Creat Clear 98, Estimated GFR 88, Est GFR ( Amer) 106, Glucose 166 H, Calcium 7.9 L, Total Bilirubin 0.7, AST 76 H, ALT 112 H, Alkaline Phosphatase 87, Total Protein 6.1 L, Albumin 2.9 L, Globulin 3.2, Albumin/Globulin Ratio 0.9 L 06/11/21 06:00: Urine Color Yellow, Urine Appearance Clear, Urine pH 6.0, Ur Specific [place] >= 1.030, Urine Protein 1+, Urine Glucose (UA) Negative, Urine Ketones Negative, Urine Blood 2+, Urine Nitrate Negative, Urine Bilirubin Negative, Urine Urobilinogen 0.2, Ur Leukocyte Esterase Negative, Urine RBC 5-10, Urine WBC 3-5, Ur Squamous Epith Cells Occasional, Urine Bacteria 3+, Urine Mucus 2+ <Moose Che - Last Filed: 06/25/21 08:05> [facility] Heparin Dosing - Indication CVA?: No Bleeding problem?: No Kidney disease?: No TX?: No - Labs Anticoagulation Lab Results:: 06/12/21 05:20 Hgb 12.6 L Hct 40.8 L Plt Count 310 - Monitoring Dose Monitor 1 Time: 16:35 PTT Result:: 27.6 Dose Monitor 2 Date: 06/11/21 Time: 20:30 PTT Result:: 82.3 Infusion Rate:: DECREASE RATE BY ~1U/KG/HR TO 1250 U/HR = 25 ML/HR Dose Monitor 3 Date: 06/12/21 Time: 00:40 PTT Result:: 60.6 Infusion Rate:: CONTINUE CURRENT RATE OF 1250 U/HR = 25 ML/HR Dose Monitor 4 Date: 06/12/21 Time: 04:30 PTT Result:: LEVEL NOT DRAWN Infusion Rate:: CONTINUE CURRENT RATE OF 1250 U/HR = 25 ML/HR, WILL CHECK PTT AT 0830 AND ADJUST THEN Dose Monitor 5 Date: 06/12/21 Time: 08:30 PTT Result:: 50.0 Infusion Rate:: CONTINUE CURRENT RATE OF 1250 U/HR = 25 ML/HR Dose Monitor 6 Date: 06/12/21 Time: 12:30 PTT Result:: 51.5 Infusion Rate:: CONTINUE CURRENT RATE OF 1250 U/HR = 25 ML/HR Dose Monitor 7 Date: 06/12/21 Time: 16:30 PTT Result:: 46.6 Infusion Rate:: BOLUS 3000 UNITS OF HEPARIN ONCE AND INCREASE RATE BY 2U/KG/HR TO
[2021-06-11 16:47] LABS: Oxygen 100 %; Tidal Volume 440
[2021-06-11 16:48] LABS: Allen's Test acceptable; PEEP 14; Source lr; Vent Rate 24
[2021-06-11 17:19] LABS: Activated Partial Thrombo Time 27.6 seconds (22.8-30.6)
--- NOTE | 2021-06-11 17:36 | PC.NURSE ---
1250 attempted to transport pt to radiology for cta, pt o2 sats declined to 69 before reaching the elevator. pt was returned to room and was eventually transported to Radiology at 1430. pt tolerated well. [facility] called and asked to speak with physician, they were transferred to Dr Bradley's office at 1510. results were never given to nursing staff. Called Dr Bradley at 1520 made sure md spoke with [facility] and received critical results, he did. reported to Dr Bradley [id number] that pt is in afib w/ RVR. new orders LR Bolus X1 1535 Dr Medel was informed of pt [facility] report and pt being in afib. new orders, consult cardiology.10 mg diltiazem bolus, cardizem drip for rate less than 100. 1538 attempted to call and notify [facility] office of consult, but consulting staff were out of the office at this time.
--- NOTE | 2021-06-11 19:32 | ECG_ITS ---
APPROVED REPORT Exam: Resting ECG HR:57 bpm ECG Measurements Heart Rate 57 AXES IL 142 P -25 QRSd 80 QRS 73 QT 522 T 72 QTc 508 Conclusion Sinus bradycardia Nonspecific ST abnormality Prolonged QT Abnormal ECG Electronically signed by : Carlos Woodward MD 06/13/2021 07:30:12
[2021-06-11 21:06] LABS: Activated Partial Thrombo Time 82.3 seconds (22.8-30.6)
--- NOTE | 2021-06-11 23:09 | PC.NURSE ---
He continues to be intubated and sedated. HOB elevated. Gag reflex is intact. He is being turned and repositioned q 2 hours. F/c patent with yellow, clear urine.
[2021-06-12] VITALS (32 sets, daily range): BP systolic 102–149; BP diastolic 61–93; PULSE 30–110; RESP 0–61; TEMP 36.2–37.1; O2SAT 91–100; BMI 25.2
[2021-06-12 01:52] LABS: Activated Partial Thrombo Time 60.6 seconds (22.8-30.6)
--- NOTE | 2021-06-12 06:00 | XR_ITS ---
PROCEDURE INFORMATION: Exam: XR Chest Exam date and time: 06/12/2021 6:00 AM Age: 56 years old Clinical indication: Shortness of breath; Additional info: Covid pna TECHNIQUE: Imaging protocol: XR of the chest. Views: 1 view. COMPARISON: CR XR CHEST PORTABLE 06/11/2021 9:16 AM FINDINGS: Tubes, catheters and devices: Tip of ET tube lies 5.4 cm from the adriane. Tip of NG tube projects over gastric fundus. Left subclavian line is stable. Lungs: Patchy bilateral pulmonary opacities are unchanged. Pleural spaces: Unremarkable. No pleural effusion. No pneumothorax. Heart/Mediastinum: Unremarkable. No cardiomegaly. Bones/joints: Unremarkable. IMPRESSION: 1. No change in bilateral multifocal pneumonia. 2. Support lines and tubes are stable.
[2021-06-12 06:44] LABS: Basophils # 0.1 K/mm3 (0-0.2); Basophils % 0.3 % (0.1-2.0); Hematocrit 40.8 % (42.0-52.0); Hemoglobin 12.6 g/dL (14.1-18.0); Lymphocytes # 0.8 K/mm3 (0.7-4.5); Lymphocytes % 3.6 % (10-50); Mean Corpuscular HGB Conc 30.9 g/dL (31.8-35.4); Mean Corpuscular Hemoglobin 29.9 pg (27.0-31.2); Mean Corpuscular Volume 96.9 fl (80-94); Mean Platelet Volume 8.5 fl (7.4-10.4); Monocytes # 1.7 K/mm3 (0.1-1.0); Monocytes % 7.7 % (1.7-9.3); Neutrophils # 19.3 K/mm3 (1.8-7.8); Neutrophils % 88.4 % (37.0-80.0); Platelet Count 310 K/mm3 (142-424); Red Blood Count 4.21 M/mm3 (4.60-6.20); Red Cell Distribution Width 12.4 % (11.5-17.5); White Blood Count 21.8 K/mm3 (4.8-10.8)
[2021-06-12 06:46] LABS: Alanine Aminotransferase 78 U/L (12-78); Albumin Level 2.7 g/dl (3.5-5.0); Albumin/Globulin Ratio 0.8 (1.1-1.8); Alkaline Phosphatase 96 U/L (38-126); Aspartate Amino Transferase 28 U/L (17-59); Bilirubin,Total 0.3 mg/dl (0.2-1.3); Blood Urea Nitrogen 19 mg/dl (9-20); Calcium 8.2 mg/dl (8.4-10.2); Carbon Dioxide 30 mmol/L (22.0-30.0); Chloride 112 mmol/L (98-107); Creatinine Clearance Estimated 100 mL/min (50-200); Estimated Glomerular Filt Rate 88 ml/min (>60); GFR (African American) 106 ML/MIN (>60); Globulin 3.2 g/dL (1.3-3.2); Glucose 264 mg/dl (74-100); Sodium 147 mmol/L (136-145); Total Protein,Serum 5.9 g/dl (6.3-8.2)
[2021-06-12 06:53] LABS: MANUAL DIFFERENTIAL MANUAL DIFFERENTIAL (MANUAL DIFF)
[2021-06-12 08:08] LABS: ABG HCO3 27.6 mmhg (22.0-26.0); ABG Oxygen Saturation 99 % (90-100); ABG PH 7.35 mmol/L (7.35-7.45); ABG PO2 210.7 mmhg (80-100); ABG TCO2 29.2 mmhg (23-27)
[2021-06-12 08:21] LABS: Oxygen 100 %; PEEP 18; Tidal Volume 440; Vent Rate 24
[2021-06-12 08:22] LABS: ABG PCO2 51.7 mmhg (35.0-45.0); Allen's Test acceptable; Source Left Radial
--- NOTE | 2021-06-12 08:26 | HMH.CNCARD ---
History of Present Illness Consult date: 06/12/21 Requesting physician: Sid Medel Consult reason: atrial fibrillation Chief complaint: COVID, A. fib, CAD Additional Medical History:: 1. CAD A. SD, 2013, records unavailable 2. Pulmonary nodules, seeing Dr. Bradley A. CT of chest in 11/2020 and 02/2021 B. CTA of chest during COVID admission, 05/2021, nodules possibly worse but unable to say definitely due to COVID pneumonia. 3. HTN A. Echo, 05/2021, 1. Normal left ventricular size, preserved left ventricular systolic function, visually estimated ejection fraction 55% with no regional wall motion abnormality, diastolic parameters are within normal range. 2. Trace mitral and tricuspid regurgitation. 3. No significant pericardial effusion noted. Electronically signed by : Fili Lozoya MD 06/08/2021 12:25:54 4. HLD, on statin therapy 5. Tobacco use History of present illness: 56 yo WM admitted for worsening respiratory function related to COVID pneumonia. This has gradually worsened to the point of being intubated yesterday with CTA of chest showing multiple pulmonary emboli for which he was started on IV heparin. Pt developed A. fib with RVR that responded well to IV diltiazem with subsequent conversion back to sinus rhythm with bradycardic rate. Diltiazem was discontinued and oral diltiazem was started but dose held this AM due to bradycardia. He is on Daryl-synephrine for BP support. Cardiology consulted for further recommendations. [facility] History Medical History: Reports:: Hyperlipidemia, Hypertension, Myocardial Infarction *Have you ever received a pneumonia vaccine?: No *Have you received a flu vaccine this season?: No Laterality Cases: Bilateral: Tonsillectomy, Other Other Surgeries: Yes: No Previous Surgery Amputation: No Fractures: No - *Social History Smoking Status: Never smoker Alcohol Intake: current Alcohol Intake Frequency:: holidays/special occasions only Substance Use Type: denies use Last Used Substance: unknown *Occupational Status:: employed, disabled *Travel in the last 8 weeks: None Family Hx:: Coronary Artery Disease, Hypertension, Asthma Meds Home Medications Medication Instructions Recorded Confirmed Type aspirin 81 mg tablet,delayed 81 mg PO DAILY 10/10/20 06/07/21 History release metoprolol succinate 25 mg 25 mg PO DAILY #90 tab 02/28/21 06/07/21 Rx tablet,extended release 24 hr lisinopril 10 mg tablet 10 mg PO DAILY #30 tab 03/02/21 06/07/21 Rx albuterol sulfate 90 mcg/actuation 1 inh INHALATION QID PRN #8.5 g 03/08/21 06/07/21 Rx aerosol inhaler atorvastatin 40 mg tablet 40 mg PO HS #30 tab 04/12/21 06/07/21 Rx Allergies Allergy/AdvReac Type Severity Reaction Status Date / Time No Known Allergies Allergy Verified 06/02/21 14:11 Exam Vital signs and Labs for Last 24 Hours: Temp Pulse Resp BP Pulse Ox 97.2 F L 60 24 149/93 H 100 06/12/21 08:00 06/12/21 08:00 06/12/21 08:00 06/12/21 08:00 06/12/21 08:00 Laboratory Results - last 24 hr 06/11/21 05:46: Total Counted 100, Neutrophils % (Manual) 92 H, Lymphocytes % (Manual) 2 L, Monocytes % (Manual) 6, Platelet Estimate Normal, Hypochromasia 1+, Macrocytosis 1+ 06/11/21 06:00: Urine Color Yellow, Urine Appearance Clear, Urine pH 6.0, Ur Specific [place] >= 1.030, Urine Protein 1+, Urine Glucose (UA) Negative, Urine Ketones Negative, Urine Blood 2+, Urine Nitrate Negative, Urine Bilirubin Negative, Urine Urobilinogen 0.2, Ur Leukocyte Esterase Negative, Urine RBC 5-10, Urine WBC 3-5, Ur Squamous Epith Cells Occasional, Urine Bacteria 3+, Urine Mucus 2+ 06/11/21 06:40: Specimen Source lr, O2 % 100, ABG pH 7.32 L, ABG pCO2 48.5 H, ABG pO2 55.7 L, ABG HCO3 24.5, ABG Total CO2 26.0, ABG O2 Saturation 85 L*, ABG Base Excess -1.5, Luis Test acceptable, Vent Rate 24, Tidal Volume 440, PEEP 14 06/11/21 16:35: APTT 27.6 06/11/21 20:14: APTT 82.3 H* D 06/12/21 00:55: APTT 60.6 H* D 06/12/21 05:20: WBC
[2021-06-12 08:40] LABS: Monocytes % 2 % (2-9); Neutrophils % 98 % (42-76); Total Cells Counted 100
[2021-06-12 08:42] LABS: Hypochromasia 1+; Microcytosis 1+; Platelet Estimate Normal
--- NOTE | 2021-06-12 10:21 | HMH.ACPN2 ---
Internal Medicine - PN: Subj *Date: 06/12/21 *Time: 13:01 Interval history: 56 YOM remains on ventilator and sedated. Nursing denies respiratory events overnight Exam Vital signs and Labs for Last 24 Hours: Temp Pulse Resp BP Pulse Ox 97.2 F L 61 24 149/93 H 91 L 06/12/21 08:00 06/12/21 08:00 06/12/21 08:00 06/12/21 08:00 06/12/21 08:00 Laboratory Results - last 24 hr 06/11/21 06:00: Urine Color Yellow, Urine Appearance Clear, Urine pH 6.0, Ur Specific [place] >= 1.030, Urine Protein 1+, Urine Glucose (UA) Negative, Urine Ketones Negative, Urine Blood 2+, Urine Nitrate Negative, Urine Bilirubin Negative, Urine Urobilinogen 0.2, Ur Leukocyte Esterase Negative, Urine RBC 5-10, Urine WBC 3-5, Ur Squamous Epith Cells Occasional, Urine Bacteria 3+, Urine Mucus 2+ 06/11/21 06:40: Specimen Source lr, O2 % 100, ABG pH 7.32 L, ABG pCO2 48.5 H, ABG pO2 55.7 L, ABG HCO3 24.5, ABG Total CO2 26.0, ABG O2 Saturation 85 L*, ABG Base Excess -1.5, Luis Test acceptable, Vent Rate 24, Tidal Volume 440, PEEP 14 06/11/21 16:35: APTT 27.6 06/11/21 20:14: APTT 82.3 H* D 06/12/21 00:55: APTT 60.6 H* D 06/12/21 05:20: WBC 21.8 H* D, RBC 4.21 L, Hgb 12.6 L, Hct 40.8 L, MCV 96.9 H, MCH 29.9, MCHC 30.9 L, RDW 12.4, Plt Count 310, MPV 8.5, Neut % (Auto) 88.4 H, Lymph % (Auto) 3.6 L, [place] % (Auto) 7.7, Eos % (Auto) 0.0 L, Baso % (Auto) 0.3, Neut # (Auto) 19.3 H, Lymph # (Auto) 0.8, [place] # (Auto) 1.7 H, Eos # (Auto) 0.0, Baso # (Auto) 0.1, Total Counted 100, Neutrophils % (Manual) 98 H, Monocytes % (Manual) 2, Platelet Estimate Normal, Hypochromasia 1+, Microcytosis 1+ 06/12/21 05:20: Sodium 147 H, Potassium 5.0 D, Chloride 112 H, Carbon Dioxide 30, Anion Gap 10.0, BUN 19 D, Creatinine 0.90, Estimated Creat Clear 100, Estimated GFR 88, Est GFR ( Amer) 106, Glucose 264 H D, Calcium 8.2 L, Total Bilirubin 0.3, AST 28 D, ALT 78 D, Alkaline Phosphatase 96, Total Protein 5.9 L, Albumin 2.7 L, Globulin 3.2, Albumin/Globulin Ratio 0.8 L 06/12/21 07:34: Specimen Source Left radial, O2 % 100, ABG pH 7.35, ABG pCO2 51.7 H, ABG pO2 210.7 H, ABG HCO3 27.6 H, ABG Total CO2 29.2 H, ABG O2 Saturation 99, ABG Base Excess 2.0, Luis Test acceptable, Vent Rate 24, Tidal Volume 440, PEEP 18 I & O for Last 24 hours: Intake & Output 06/09/21 06/10/21 06/11/21 06/12/21 23:59 23:59 23:59 23:59 Intake Total 990 / 990 630 / 755 3647.325 / 3647.325 1216.229 / 1216.229 Output Total 1450 / 1650 700 / 770 3320 / 4620 2099 / 2100 Balance -460 / -660 -70 / -15 327.325 / -972.675 -883.771 / -883.771 Weight 170 lb 12.8 oz 167 lb 11.2 oz 162 lb 0.636 oz 166 lb 11.452 oz - Constitutional no acute distress - *Routine HEENT Exam Head: Present: normocephalic Eye: Present: EOMI ENT: Present: mucous membranes moist - *Routine Neck Exam Present: trachea midline. Absent: tracheal deviation - *Routine Respiratory Exam Present: patient mechanically ventilated, crackles - *Routine Cardiovascular Exam Present: RRR - *Routine Abdominal Exam Present: soft, normoactive bowel sounds. Absent: distended - *Routine Extremities Exam Present: pulses intact. Absent: cyanosis, clubbing - *Routine Skin Exam Present: intact, dry. Absent: cyanosis, erythema - *Routine Neurological Exam Present: altered mental status Sedated - Routine Psychiatric Exam Comments: Sedated Assessment and Plan (1) Enlarged heart Status: Acute Category: Medical Code(s): I51.7 - Cardiomegaly (2) COVID-19 Status: Acute Category: Medical Code(s): U07.1 - COVID-19 (3) Respiratory failure with hypoxia Status: Acute Qualifiers: Chronicity: acute Qualified Code(s): J96.01 - Acute respiratory failure with hypoxia Category: Medical Code(s): J96.91 - Respiratory failure, unspecified with hypoxia (4) COVID-19 virus infection Status: Acute Category: Medical Code(s): U07.1 - COVID-19 (5) Chest pain Status: Acute Qualifiers: Chest pain typ
--- NOTE | 2021-06-12 12:18 | HMH.PULMPN ---
Internal Medicine - PN: Subj *Date: 06/12/21 *Time: 12:19 Interval history: No acute respiratory events overnight. Noted improving oxygenation's. Exam - Constitutional Constitutional:: Present: no acute distress, comfortable - HENMT Exam HENMT: Present: normocephalic, atraumatic - Eye Exam Eyes:: Present: normal appearance both eyes and related structures - Neck Exam Neck:: Present: normal visual inspection - Respiratory Exam Respiratory:: Present: crackles - Cardiovascular Exam Cardiac:: Present: S1, S2 - GI Exam GI:: Present: soft - Skin Exam Skin: Present: warm, no rash - Neurological Exam Intubated and sedated - Extremities Exam Extremities: Present: no cyanosis, no clubbing, no edema Assessment and Plan (1) Enlarged heart Status: Acute Category: Medical Code(s): I51.7 - Cardiomegaly (2) COVID-19 Status: Acute Category: Medical Code(s): U07.1 - COVID-19 (3) Respiratory failure with hypoxia Status: Acute Qualifiers: Chronicity: acute Qualified Code(s): J96.01 - Acute respiratory failure with hypoxia Category: Medical Code(s): J96.91 - Respiratory failure, unspecified with hypoxia (4) COVID-19 virus infection Status: Acute Category: Medical Code(s): U07.1 - COVID-19 (5) Chest pain Status: Acute Qualifiers: Chest pain type: unspecified Qualified Code(s): R07.9 - Chest pain, unspecified Category: Medical Code(s): R07.9 - Chest pain, unspecified (6) CAD (coronary artery disease) Status: Chronic Qualifiers: Coronary Disease-Associated Artery/Lesion type: [place] artery [place] vs. transplanted heart: [place] heart Associated angina: without angina Qualified Code(s): I25.10 - Atherosclerotic heart disease of [place] coronary artery without angina pectoris Category: Medical Code(s): I25.10 - Atherosclerotic heart disease of [place] coronary artery without angina pectoris (7) HLD (hyperlipidemia) Status: Chronic Qualifiers: Hyperlipidemia type: mixed hyperlipidemia Qualified Code(s): E78.2 - Mixed hyperlipidemia Category: Medical Code(s): E78.5 - Hyperlipidemia, unspecified (8) HTN (hypertension) Status: Chronic Qualifiers: Hypertension type: primary hypertension Qualified Code(s): I10 - Essential (primary) hypertension Category: Medical Code(s): I10 - Essential (primary) hypertension (9) Acute respiratory failure due to COVID-19 Status: Acute Category: Medical Code(s): U07.1 - COVID-19; J96.00 - Acute respiratory failure, unspecified whether with hypoxia or hypercapnia (10) PAF (paroxysmal atrial fibrillation) Status: Acute Category: Medical Code(s): I48.0 - Paroxysmal atrial fibrillation - Assessment and plan all Dx Assessment and Plan for all problems:: #Acute hypoxic respiratory failure: #COVID-19 pneumonia: #Pulmonary emboli: Mr. Valadez is 56-year-old male no prior respiratory complaint presented to the hospital worsening respiratory symptoms 1 day positive for COVID-19 pneumonia. Chest x-ray on admission showed bilateral lower lobe pulmonary infiltrates. On examination patient needing 100% 40 L high flow nasal cannula saturating 90 to 95%. He does not appear to be in any respiratory distress. D-dimer elevated 0.84. CRP elevated at 204. Ferritin at 1600. No evidence of leukocytosis. Renal function stable. Patient respiratory continue to worsen needing mechanical ventilatory support. Interval update: Patient continued to be intubated and sedated. Oxygenation blood gas improved from this morning. Plan: -Continue mechanical ventilatory support. His respiratory rate was increased to 28 this morning and FiO2 was decreased to 70% and PEEP to 16. ABG showed 7.3 /55.1/210 - Continue AnalgoSedation with Propofol and Fentanyl with CPOT gal less than or euqal to 2 and RASS goal of 0 to 1 (Deep sedation) - VAP bundle Elevate head of the bed at 30 to 45 degrees Oral c
[2021-06-12 13:16] LABS: Activated Partial Thrombo Time 51.5 seconds (22.8-30.6)
[2021-06-12 17:10] LABS: Activated Partial Thrombo Time 46.6 seconds (22.8-30.6)
[2021-06-13] VITALS (35 sets, daily range): BP systolic 89–143; BP diastolic 52–83; PULSE 46–76; RESP 0–28; TEMP 35.9–36.8; O2SAT 92–100; BMI 25.9
[2021-06-13 03:52] LABS: Activated Partial Thrombo Time 94.2 seconds (22.8-30.6)
--- NOTE | 2021-06-13 06:00 | XR_ITS ---
PROCEDURE INFORMATION: Exam: XR Chest Exam date and time: 06/13/2021 6:00 AM Age: 56 years old Clinical indication: Device placement; Ett placement (vent status); Shortness of breath; Additional info: Covid pna TECHNIQUE: Imaging protocol: XR of the chest. Views: 1 view. COMPARISON: CR XR CHEST PORTABLE 06/12/2021 5:13 AM FINDINGS: Tubes, catheters and devices: Endotracheal tube is present with tip 5 cm above the adriane. Gastric drainage tube is present, passing below the diaphragm, with tip in the fundus of the stomach. Left subclavian approach central venous catheter with tip in the SVC. The support devices are unchanged. Lungs: Patchy/ill-defined bilateral airspace and interstitial opacities, right greater than left, overall similar to most recent prior exam when accounting for technical differences. Pleural spaces: No pleural effusion. No pneumothorax. Heart/Mediastinum: Normal heart size. Bones/joints: Unremarkable. IMPRESSION: No significant change since 06/12/2021.
[2021-06-13 07:35] LABS: Basophils % 0.2 % (0.1-2.0); Hematocrit 35.1 % (42.0-52.0); Hemoglobin 10.9 g/dL (14.1-18.0); Lymphocytes # 0.6 K/mm3 (0.7-4.5); Lymphocytes % 5.5 % (10-50); Mean Corpuscular HGB Conc 31.1 g/dL (31.8-35.4); Mean Corpuscular Hemoglobin 30.1 pg (27.0-31.2); Mean Corpuscular Volume 96.7 fl (80-94); Mean Platelet Volume 9.3 fl (7.4-10.4); Monocytes # 0.9 K/mm3 (0.1-1.0); Monocytes % 7.9 % (1.7-9.3); Neutrophils # 10.1 K/mm3 (1.8-7.8); Neutrophils % 86.4 % (37.0-80.0); Platelet Count 261 K/mm3 (142-424); Red Blood Count 3.63 M/mm3 (4.60-6.20); Red Cell Distribution Width 12.2 % (11.5-17.5); White Blood Count 11.6 K/mm3 (4.8-10.8)
[2021-06-13 07:41] LABS: ABG Base Excess 4.5 mmol/L (-2.4-2.3); ABG HCO3 28.4 mmhg (22.0-26.0); ABG Oxygen Saturation 93 % (90-100); ABG PCO2 40.8 mmhg (35.0-45.0); ABG PH 7.46 mmol/L (7.35-7.45); ABG PO2 67.2 mmhg (80-100); ABG TCO2 29.6 mmhg (23-27)
[2021-06-13 07:44] LABS: MANUAL DIFFERENTIAL MANUAL DIFFERENTIAL (MANUAL DIFF)
[2021-06-13 07:49] LABS: Oxygen 70 %; PEEP 14; Tidal Volume 440; Vent Rate 28
[2021-06-13 07:50] LABS: Source Left Brachial
[2021-06-13 08:01] LABS: Anion Gap 9.9 mEq/L (5-15); Blood Urea Nitrogen 19 mg/dl (9-20); Calcium 7.3 mg/dl (8.4-10.2); Carbon Dioxide 28 mmol/L (22.0-30.0); Chloride 112 mmol/L (98-107); Creatinine Clearance Estimated 133 mL/min (50-200); Estimated Glomerular Filt Rate 118 ml/min (>60); GFR (African American) 142 ML/MIN (>60); Glucose 176 mg/dl (74-100); Potassium 3.9 mmoL/L (3.5-5.1); Sodium 146 mmol/L (136-145)
--- NOTE | 2021-06-13 08:40 | HMH.ACPN2 ---
Internal Medicine - PN: Subj *Date: 06/13/21 *Time: 10:50 Interval history: 56-year-old patient resting in bed quietly still intubated and sedated norepinephrine infusing blood pressure greater than 100 Exam Vital signs and Labs for Last 24 Hours: Temp Pulse Resp BP Pulse Ox 96.6 F L 52 L 0 L 106/62 L 96 06/13/21 04:00 06/13/21 06:37 06/13/21 06:55 06/13/21 06:25 06/13/21 06:55 Laboratory Results - last 24 hr 06/12/21 05:20: Total Counted 100, Neutrophils % (Manual) 98 H, Monocytes % (Manual) 2, Platelet Estimate Normal, Hypochromasia 1+, Microcytosis 1+ 06/12/21 08:30: APTT 50.0 H 06/12/21 12:52: APTT 51.5 H 06/12/21 16:34: APTT 46.6 H 06/13/21 03:05: APTT 94.2 H* D 06/13/21 06:10: WBC 11.6 H D, RBC 3.63 L, Hgb 10.9 L, Hct 35.1 L, MCV 96.7 H, MCH 30.1, MCHC 31.1 L, RDW 12.2, Plt Count 261, MPV 9.3, Neut % (Auto) 86.4 H, Lymph % (Auto) 5.5 L, [place] % (Auto) 7.9, Eos % (Auto) 0.0 L, Baso % (Auto) 0.2, Neut # (Auto) 10.1 H, Lymph # (Auto) 0.6 L, [place] # (Auto) 0.9, Eos # (Auto) 0.0, Baso # (Auto) 0.0 06/13/21 06:10: Sodium 146 H, Potassium 3.9 D, Chloride 112 H, Carbon Dioxide 28, Anion Gap 9.9, BUN 19, Creatinine 0.70 D, Estimated Creat Clear 133, Estimated GFR 118, Est GFR ( Amer) 142 D, Glucose 176 H, Calcium 7.3 L 06/13/21 07:09: Specimen Source Left brachial, O2 % 70, ABG pH 7.46 H, ABG pCO2 40.8, ABG pO2 67.2 L, ABG HCO3 28.4 H, ABG Total CO2 29.6 H, ABG O2 Saturation 93, ABG Base Excess 4.5 H, Luis Test N/a, Vent Rate 28, Tidal Volume 440, PEEP 14 I & O for Last 24 hours: Intake & Output 06/10/21 06/11/21 06/12/21 06/13/21 23:59 23:59 23:59 23:59 Intake Total 630 / 755 3647.325 / 3647.325 2990.495 / 2990.495 1197.792 / 1197.792 Output Total 700 / 770 3320 / 4620 2961 / 2961 740 / 740 Balance -70 / -15 327.325 / -972.675 29.495 / 29.495 457.792 / 457.792 Weight 167 lb 11.2 oz 162 lb 0.636 oz 166 lb 11.452 oz 171 lb 9.6 oz Microbiology Reports for the Last 24 Hours: Microbiology 06/11/21 06:00 Urine,Catheterized Urine Culture - Preliminary NO GROWTH AFTER 24 HOURS - Constitutional no acute distress, chronically ill appearing Comments: Sedated - *Routine HEENT Exam Head: Present: normocephalic Eye: Present: EOMI ENT: Present: mucous membranes moist - *Routine Neck Exam Present: trachea midline. Absent: tracheal deviation - *Routine Respiratory Exam Present: patient mechanically ventilated, crackles - *Routine Cardiovascular Exam Present: bradycardia - *Routine Abdominal Exam Present: soft, normoactive bowel sounds. Absent: distended - *Routine Extremities Exam Present: pulses intact. Absent: cyanosis, clubbing - *Routine Skin Exam Present: intact, dry, warm. Absent: cyanosis, erythema Comments: LSC TLC - *Routine Neurological Exam Present: altered mental status Sedated - Routine Psychiatric Exam Present: unable to assess Assessment and Plan (1) Enlarged heart Status: Acute Category: Medical Code(s): I51.7 - Cardiomegaly (2) COVID-19 Status: Acute Category: Medical Code(s): U07.1 - COVID-19 (3) Respiratory failure with hypoxia Status: Acute Qualifiers: Chronicity: acute Qualified Code(s): J96.01 - Acute respiratory failure with hypoxia Category: Medical Code(s): J96.91 - Respiratory failure, unspecified with hypoxia (4) COVID-19 virus infection Status: Acute Category: Medical Code(s): U07.1 - COVID-19 (5) Chest pain Status: Acute Qualifiers: Chest pain type: unspecified Qualified Code(s): R07.9 - Chest pain, unspecified Category: Medical Code(s): R07.9 - Chest pain, unspecified (6) CAD (coronary artery disease) Status: Chronic Qualifiers: Coronary Disease-Associated Artery/Lesion type: [place] artery [place] vs. transplanted heart: [place] heart Associated angina: without angina Qualified Code(s): I25.10 - Atherosclerotic heart disease of [place]
[2021-06-13 09:58] LABS: Lymphocytes % 9 % (10-50); Monocytes % 5 % (2-9); Neutrophils % 85 % (42-76); Nucleated Red Blood Cells 1; Total Cells Counted 100
[2021-06-13 09:59] LABS: Hypochromasia 1+; Platelet Estimate Normal
--- NOTE | 2021-06-13 10:07 | P.PN_ITS ---
Subjective Date: 06/13/21 Time: 09:40 Principal diagnosis: COVID Interval history: 56 yo WM in ICU sedated on the vent. Blood pressure systolic is around 100 mmHg with heart rate in the 40s and sinus. Exam Vital signs and Labs for Last 24 Hours: Temp Pulse Resp BP Pulse Ox 96.6 F L 52 L 0 L 106/62 L 96 06/13/21 04:00 06/13/21 06:37 06/13/21 06:55 06/13/21 06:25 06/13/21 06:55 Laboratory Results - last 24 hr 06/12/21 08:30: APTT 50.0 H 06/12/21 12:52: APTT 51.5 H 06/12/21 16:34: APTT 46.6 H 06/13/21 03:05: APTT 94.2 H* D 06/13/21 06:10: WBC 11.6 H D, RBC 3.63 L, Hgb 10.9 L, Hct 35.1 L, MCV 96.7 H, MCH 30.1, MCHC 31.1 L, RDW 12.2, Plt Count 261, MPV 9.3, Neut % (Auto) 86.4 H, Lymph % (Auto) 5.5 L, [place] % (Auto) 7.9, Eos % (Auto) 0.0 L, Baso % (Auto) 0.2, Neut # (Auto) 10.1 H, Lymph # (Auto) 0.6 L, [place] # (Auto) 0.9, Eos # (Auto) 0.0, Baso # (Auto) 0.0, Total Counted 100, Neutrophils % (Manual) 85 H, Lymphocytes % (Manual) 9 L, Monocytes % (Manual) 5, Blast Cells % 1.0, Nucleated RBCs 1, Platelet Estimate Normal, Hypochromasia 1+ 06/13/21 06:10: Sodium 146 H, Potassium 3.9 D, Chloride 112 H, Carbon Dioxide 28, Anion Gap 9.9, BUN 19, Creatinine 0.70 D, Estimated Creat Clear 133, Estimated GFR 118, Est GFR ( Amer) 142 D, Glucose 176 H, Calcium 7.3 L 06/13/21 07:09: Specimen Source Left brachial, O2 % 70, ABG pH 7.46 H, ABG pCO2 40.8, ABG pO2 67.2 L, ABG HCO3 28.4 H, ABG Total CO2 29.6 H, ABG O2 Saturation 93, ABG Base Excess 4.5 H, Luis Test N/a, Vent Rate 28, Tidal Volume 440, PEEP 14 I & O for Last 24 hours: Intake & Output 06/10/21 06/11/21 06/12/21 06/13/21 11:59 11:59 11:59 11:59 Intake Total 770 / 770 767.708 / 591.898 9240.846 / 4725.846 2972.058 / 2972.058 Output Total 1250 / 1250 1020 / 1370 4690 / 5015 1561 / 1561 Balance -480 / -480 -252.292 / -602.292 35.846 / -807.949 2963.058 / 1411.058 Weight 167 lb 11.2 oz 162 lb 1.6 oz 166 lb 11.452 oz 171 lb 9.6 oz Microbiology Reports for the Last 24 Hours: Microbiology 06/11/21 06:00 Urine,Catheterized Urine Culture - Preliminary NO GROWTH AFTER 24 HOURS - *Routine Respiratory Exam Present: patient mechanically ventilated - *Routine Cardiovascular Exam Present: bradycardia Progress Note: A&P (1) COVID-19 Status: Acute (2) Respiratory failure with hypoxia Status: Acute (3) COVID-19 virus infection Status: Acute (4) Chest pain Status: Acute (5) CAD (coronary artery disease) Status: Chronic (6) HLD (hyperlipidemia) Status: Chronic (7) HTN (hypertension) Status: Chronic (8) Acute respiratory failure due to COVID-19 Status: Acute (9) PAF (paroxysmal atrial fibrillation) Status: Acute (10) Anemia Status: Acute (11) Enlarged heart Status: Acute Assessment and Plan for All Diagnoses:: 1. COVID pneumonia, currently intubated on [facility]. vent 2. PAF, converted with IV diltiazem. Maintaining sinus rhythm with digoxin for rate control. On heparin drip for Covid protocol. 3. CAD with history of [place]. Normal [place] myoview, 09/2020. Continue ASA. 4. History of HTN, currently off vasopressor support. 5. Right heart enlargement on echo related to acute on chronic lung issues.
[2021-06-13 11:10] LABS: Activated Partial Thrombo Time 61.2 seconds (22.8-30.6)
--- NOTE | 2021-06-13 12:08 | PC.NURSE ---
1200: Propofol decreased to 80mcg d/t BP of 89/52. Heel protectors placed. T/R x 2 assist. Pressure relieving measures in place. Stat lock placed to left thigh for indwelling catheter securement.
--- NOTE | 2021-06-13 13:12 | P.PN_ITS ---
Internal Medicine - PN: Subj *Date: 06/13/21 *Time: 13:12 Assessment and Plan (1) Enlarged heart Status: Acute Category: Medical Code(s): I51.7 - Cardiomegaly (2) COVID-19 Status: Acute Category: Medical Code(s): U07.1 - COVID-19 (3) Respiratory failure with hypoxia Status: Acute Qualifiers: Chronicity: acute Qualified Code(s): J96.01 - Acute respiratory failure with hypoxia Category: Medical Code(s): J96.91 - Respiratory failure, unspecified with hypoxia (4) COVID-19 virus infection Status: Acute Category: Medical Code(s): U07.1 - COVID-19 (5) Chest pain Status: Acute Qualifiers: Chest pain type: unspecified Qualified Code(s): R07.9 - Chest pain, unspecified Category: Medical Code(s): R07.9 - Chest pain, unspecified (6) CAD (coronary artery disease) Status: Chronic Qualifiers: Coronary Disease-Associated Artery/Lesion type: [place] artery [place] vs. transplanted heart: [place] heart Associated angina: without angina Qualified Code(s): I25.10 - Atherosclerotic heart disease of [place] coronary artery without angina pectoris Category: Medical Code(s): I25.10 - Atherosclerotic heart disease of [place] coronary artery without angina pectoris (7) HLD (hyperlipidemia) Status: Chronic Qualifiers: Hyperlipidemia type: mixed hyperlipidemia Qualified Code(s): E78.2 - Mixed hyperlipidemia Category: Medical Code(s): E78.5 - Hyperlipidemia, unspecified (8) HTN (hypertension) Status: Chronic Qualifiers: Hypertension type: primary hypertension Qualified Code(s): I10 - Essential (primary) hypertension Category: Medical Code(s): I10 - Essential (primary) hypertension (9) Acute respiratory failure due to COVID-19 Status: Acute Category: Medical Code(s): U07.1 - COVID-19; J96.00 - Acute respiratory failure, unspecified whether with hypoxia or hypercapnia (10) PAF (paroxysmal atrial fibrillation) Status: Acute Category: Medical Code(s): I48.0 - Paroxysmal atrial fibrillation - Assessment and plan all Dx Assessment and Plan for all problems:: #Acute hypoxic respiratory failure: #COVID-19 pneumonia: #Pulmonary emboli: Mr. Valadez is 56-year-old male no prior respiratory complaint presented to the hospital worsening respiratory symptoms 1 day positive for COVID-19 pneumonia. Chest x-ray on admission showed bilateral lower lobe pulmonary infiltrates. D-dimer elevated 0.84. CRP elevated at 204. Ferritin at 1600. Plan: - Continue AnalgoSedation with Propofol and Fentanyl with CPOT gal less than or euqal to 2 and RASS goal of 0 to 1 (Deep sedation) - VAP bundle Elevate head of the bed at 30 to 45 degrees Oral care with chlorhexidne GI ulcer prophylaxis - Famotidine 20mg IV BID -Continue mechanical ventilatory support, ABG this morning within normal limits, increase FiO2 80% we will continue rest of the current ventilator settings. Leukocytosis improving. -Continue remdesivir, dexamethasone 6 daily and Barcitinib for his COVID-19 pneumonia. -Continue ceftriaxone azithromycin for possible community-acquired pneumonia. -Nebs every 4 hours scheduled -Continue heparin drip for pulmonary embolism Abdomen soft nondistended. Recommend NG tube placement and tube feeds Renal function stable. Adequate urine output. We will closely monitor. #Thank you for involving pulmonary in this patient care. We will continue to follow.
[2021-06-13 16:29] LABS: Activated Partial Thrombo Time 79.9 seconds (22.8-30.6)
[2021-06-13 23:01] LABS: Activated Partial Thrombo Time 73.1 seconds (22.8-30.6)
--- NOTE | 2021-06-13 23:46 | PC.NURSE ---
[id number] notified r/t [facility]. Natalee stated she was going to pas on for referral. 2336-Ishmael from [facility] returned call and stated he would speak to more of the team about the case and will f/u.
[2021-06-14] VITALS (33 sets, daily range): BP systolic 90–112; BP diastolic 50–75; PULSE 52–104; RESP 28; TEMP 36.6–37.8; O2SAT 90–100; BMI 26.4
--- NOTE | 2021-06-14 00:07 | PC.NURSE ---
2353-Ishmael from [facility] called back and stated they are not going to follow the patient for donation.
--- NOTE | 2021-06-14 03:08 | PC.NURSE ---
He continues to be intubated and sedated. HOB elevated to 30 degrees. He has been afebrile. Sinus isaías on telemetry. No change in vent settings.
[2021-06-14 04:33] LABS: Basophils % 0.3 % (0.1-2.0); Eosinophils % 0.1 % (0.1-12.0); Hematocrit 33.5 % (42.0-52.0); Hemoglobin 10.7 g/dL (14.1-18.0); Lymphocytes # 0.6 K/mm3 (0.7-4.5); Lymphocytes % 5.2 % (10-50); Mean Corpuscular Hemoglobin 30.8 pg (27.0-31.2); Mean Corpuscular Volume 96.3 fl (80-94); Mean Platelet Volume 9.1 fl (7.4-10.4); Monocytes # 0.7 K/mm3 (0.1-1.0); Monocytes % 5.9 % (1.7-9.3); Neutrophils # 10.7 K/mm3 (1.8-7.8); Neutrophils % 88.6 % (37.0-80.0); Platelet Count 373 K/mm3 (142-424); Red Blood Count 3.48 M/mm3 (4.60-6.20); Red Cell Distribution Width 12.3 % (11.5-17.5); White Blood Count 12.1 K/mm3 (4.8-10.8)
[2021-06-14 04:40] LABS: MANUAL DIFFERENTIAL MANUAL DIFFERENTIAL (MANUAL DIFF)
[2021-06-14 04:42] LABS: Alanine Aminotransferase 50 U/L (12-78); Albumin Level 2.4 g/dl (3.5-5.0); Albumin/Globulin Ratio 0.8 (1.1-1.8); Alkaline Phosphatase 79 U/L (38-126); Anion Gap 10.9 mEq/L (5-15); Aspartate Amino Transferase 32 U/L (17-59); Bilirubin,Total 0.2 mg/dl (0.2-1.3); Blood Urea Nitrogen 29 mg/dl (9-20); Calcium 7.9 mg/dl (8.4-10.2); Carbon Dioxide 30 mmol/L (22.0-30.0); Chloride 107 mmol/L (98-107); Creatinine Clearance Estimated 116 mL/min (50-200); Estimated Glomerular Filt Rate 101 ml/min (>60); GFR (African American) 122 ML/MIN (>60); Glucose 175 mg/dl (74-100); Potassium 4.9 mmoL/L (3.5-5.1); Sodium 143 mmol/L (136-145); Total Protein,Serum 5.4 g/dl (6.3-8.2)
[2021-06-14 05:24] LABS: Activated Partial Thrombo Time 80.4 seconds (22.8-30.6)
[2021-06-14 05:28] LABS: Lymphocytes % 8 % (10-50); Neutrophils % 92 % (42-76); Platelet Estimate Normal; Stomatocytes 1+; Total Cells Counted 100
--- NOTE | 2021-06-14 06:00 | XR_ITS ---
PROCEDURE INFORMATION: Exam: XR Chest Exam date and time: 06/14/2021 6:00 AM Age: 56 years old Clinical indication: Device placement; Ett placement (vent status); Additional info: Covid pna TECHNIQUE: Imaging protocol: XR of the chest. Views: 1 view. COMPARISON: CR XR CHEST PORTABLE 06/13/2021 2:56 AM FINDINGS: Tubes, catheters and devices: Endotracheal tube noted with the tip above the adriane approximately 4.8 cm. A left infusion port is present. The endogastric tube is noted with distal portion overlying the stomach. Multiple overlying cardiac leads are present. Lungs: Slight interval worsening of bilateral airspace opacities. Pleural spaces: Unremarkable. No pleural effusion. No pneumothorax. Heart/Mediastinum: Unremarkable. No cardiomegaly. Bones/joints: Unremarkable. IMPRESSION: 1. Slight interval worsening of bilateral airspace opacities. 2. Support catheters noted, as above. No pneumothorax.
[2021-06-14 07:47] LABS: ABG Base Excess 3.4 mmol/L (-2.4-2.3); ABG HCO3 28.2 mmhg (22.0-26.0); ABG Oxygen Saturation 97 % (90-100); ABG PCO2 46.7 mmhg (35.0-45.0); ABG PO2 90.5 mmhg (80-100); ABG TCO2 29.6 mmhg (23-27); Allen's Test Patient Unable; Oxygen 80 %; PEEP 14; Source Right Radial; Tidal Volume 440; Vent Rate 28
--- NOTE | 2021-06-14 09:24 | HMH.ACPN2 ---
Internal Medicine - PN: Subj *Date: 06/14/21 *Time: 15:16 Interval history: 56-year-old male patient resting in bed quietly currently intubated and sedated. Vasopressors are off and he is tolerating tube feed without any excessive aspirates Exam Vital signs and Labs for Last 24 Hours: Temp Pulse Resp BP Pulse Ox 98.0 F 59 L 28 H 101/58 L 97 06/14/21 08:00 06/14/21 08:00 06/14/21 08:00 06/14/21 08:00 06/14/21 08:00 Laboratory Results - last 24 hr 06/13/21 06:10: Total Counted 100, Neutrophils % (Manual) 85 H, Lymphocytes % (Manual) 9 L, Monocytes % (Manual) 5, Blast Cells % 1.0, Nucleated RBCs 1, Platelet Estimate Normal, Hypochromasia 1+ 06/13/21 10:00: APTT 61.2 H* D 06/13/21 15:50: APTT 79.9 H* D 06/13/21 22:14: APTT 73.1 H* 06/14/21 04:20: APTT 80.4 H* 06/14/21 04:20: WBC 12.1 H, RBC 3.48 L, Hgb 10.7 L, Hct 33.5 L, MCV 96.3 H, MCH 30.8, MCHC 32.0, RDW 12.3, Plt Count 373 D, MPV 9.1, Neut % (Auto) 88.6 H, Lymph % (Auto) 5.2 L, [place] % (Auto) 5.9, Eos % (Auto) 0.1, Baso % (Auto) 0.3, Neut # (Auto) 10.7 H, Lymph # (Auto) 0.6 L, [place] # (Auto) 0.7, Eos # (Auto) 0.0, Baso # (Auto) 0.0, Total Counted 100, Neutrophils % (Manual) 92 H, Lymphocytes % (Manual) 8 L, Platelet Estimate Normal, Stomatocytes 1+ 06/14/21 04:20: Sodium 143, Potassium 4.9 D, Chloride 107, Carbon Dioxide 30, Anion Gap 10.9, BUN 29 H D, Creatinine 0.80, Estimated Creat Clear 116, Estimated GFR 101, Est GFR ( Amer) 122, Glucose 175 H, Calcium 7.9 L, Total Bilirubin 0.2, AST 32, ALT 50 D, Alkaline Phosphatase 79, Total Protein 5.4 L, Albumin 2.4 L, Globulin 3.0, Albumin/Globulin Ratio 0.8 L 06/14/21 06:56: Specimen Source Right radial, O2 % 80, ABG pH 7.40, ABG pCO2 46.7 H, ABG pO2 90.5, ABG HCO3 28.2 H, ABG Total CO2 29.6 H, ABG O2 Saturation 97, ABG Base Excess 3.4 H, Luis Test Patient unable, Vent Rate 28, Tidal Volume 440, PEEP 14 I & O for Last 24 hours: Intake & Output 06/11/21 06/12/21 06/13/21 06/14/21 23:59 23:59 23:59 23:59 Intake Total 3647.325 / 3647.325 2990.495 / 2990.495 2872.393 / 2872.393 1320.625 / 1320.625 Output Total 3320 / 4620 2961 / 2961 1740 / 1815 1337 / 1337 Balance 327.325 / -972.675 29.495 / 29.495 1132.393 / 1057.393 -16.375 / -16.375 Weight 162 lb 0.636 oz 166 lb 11.452 oz 171 lb 9.6 oz 174 lb 9.6 oz Microbiology Reports for the Last 24 Hours: Microbiology 06/11/21 07:21 Anus CRE Surveillance Culture - Final Negative 06/11/21 06:00 Urine,Catheterized Urine Culture - Final NO GROWTH AFTER 48 HOURS - Constitutional no acute distress - *Routine HEENT Exam Head: Present: normocephalic Eye: Present: EOMI ENT: Present: mucous membranes moist - *Routine Neck Exam Present: trachea midline. Absent: tracheal deviation - *Routine Respiratory Exam Present: crackles. Absent: accessory muscle use - *Routine Cardiovascular Exam Present: RRR - *Routine Abdominal Exam Present: soft, normoactive bowel sounds. Absent: tenderness, distended - *Routine Extremities Exam Present: pulses intact. Absent: cyanosis, clubbing - *Routine Skin Exam Present: intact, dry (A lot), warm. Absent: cyanosis, erythema - *Routine Neurological Exam Present: altered mental status Sedated - Routine Psychiatric Exam Present: unable to assess Comments: Sedated Assessment and Plan (1) Enlarged heart Status: Acute Category: Medical Code(s): I51.7 - Cardiomegaly (2) COVID-19 Status: Acute Category: Medical Code(s): U07.1 - COVID-19 (3) Respiratory failure with hypoxia Status: Acute Qualifiers: Chronicity: acute Qualified Code(s): J96.01 - Acute respiratory failure with hypoxia Category: Medical Code(s): J96.91 - Respiratory failure, unspecified with hypoxia (4) COVID-19 virus infection Status: Acute Category: Medical Code(s): U07.1 - COVID-19 (5) Chest pain Status: Acute Qualifiers: Chest p
--- NOTE | 2021-06-14 09:53 | HMH.PULMPN ---
Internal Medicine - PN: Subj *Date: 06/14/21 *Time: 14:26 Interval history: No acute respiratory events overnight. Exam - Constitutional Constitutional:: Absent: no acute distress, comfortable - HENMT Exam HENMT: Present: normocephalic, atraumatic - Neck Exam Neck:: Present: normal visual inspection - Respiratory Exam Respiratory:: Present: respiratory distress, crackles - Cardiovascular Exam Cardiac:: Present: S1, S2 - GI Exam GI:: Present: soft - Skin Exam Skin: Present: warm, no rash - Neurological Exam Intubated and sedated - Extremities Exam Extremities: Present: no cyanosis, no clubbing, edema Assessment and Plan (1) Enlarged heart Status: Acute Category: Medical Code(s): I51.7 - Cardiomegaly (2) COVID-19 Status: Acute Category: Medical Code(s): U07.1 - COVID-19 (3) Respiratory failure with hypoxia Status: Acute Qualifiers: Chronicity: acute Qualified Code(s): J96.01 - Acute respiratory failure with hypoxia Category: Medical Code(s): J96.91 - Respiratory failure, unspecified with hypoxia (4) COVID-19 virus infection Status: Acute Category: Medical Code(s): U07.1 - COVID-19 (5) Chest pain Status: Acute Qualifiers: Chest pain type: unspecified Qualified Code(s): R07.9 - Chest pain, unspecified Category: Medical Code(s): R07.9 - Chest pain, unspecified (6) CAD (coronary artery disease) Status: Chronic Qualifiers: Coronary Disease-Associated Artery/Lesion type: [place] artery [place] vs. transplanted heart: [place] heart Associated angina: without angina Qualified Code(s): I25.10 - Atherosclerotic heart disease of [place] coronary artery without angina pectoris Category: Medical Code(s): I25.10 - Atherosclerotic heart disease of [place] coronary artery without angina pectoris (7) HLD (hyperlipidemia) Status: Chronic Qualifiers: Hyperlipidemia type: mixed hyperlipidemia Qualified Code(s): E78.2 - Mixed hyperlipidemia Category: Medical Code(s): E78.5 - Hyperlipidemia, unspecified (8) HTN (hypertension) Status: Chronic Qualifiers: Hypertension type: primary hypertension Qualified Code(s): I10 - Essential (primary) hypertension Category: Medical Code(s): I10 - Essential (primary) hypertension (9) Acute respiratory failure due to COVID-19 Status: Acute Category: Medical Code(s): U07.1 - COVID-19; J96.00 - Acute respiratory failure, unspecified whether with hypoxia or hypercapnia (10) PAF (paroxysmal atrial fibrillation) Status: Acute Category: Medical Code(s): I48.0 - Paroxysmal atrial fibrillation - Assessment and plan all Dx Assessment and Plan for all problems:: #Acute hypoxic respiratory failure: #COVID-19 pneumonia: #Pulmonary emboli: Mr. Valadez is 56-year-old male no prior respiratory complaint presented to the hospital worsening respiratory symptoms 1 day positive for COVID-19 pneumonia. Chest x-ray on admission showed bilateral lower lobe pulmonary infiltrates. D-dimer elevated 0.84. CRP elevated at 204. Ferritin at 1600. CTA evidence of pulmonary embolism. Plan: - Continue AnalgoSedation with Propofol and Fentanyl with CPOT gal less than or euqal to 2 and RASS goal of 1 to 2 - VAP bundle Elevate head of the bed at 30 to 45 degrees Oral care with chlorhexidne GI ulcer prophylaxis - Famotidine 20mg IV BID -Continue mechanical ventilatory support, ABG and chest x-ray reviewed we will continue current ventilatory settings. -Continue remdesivir, dexamethasone 6mg daily and Barcitinib for his COVID-19 pneumonia. -Continue ceftriaxone azithromycin for possible community-acquired pneumonia. Endotracheal aspirate from 06/11 still pending. -Nebs every 4 hours scheduled -Continue heparin drip for pulmonary embolism Abdomen soft nondistended. Continue tube feeds Renal function stable. Adequate urine output. We will closely monitor. #Thank you
--- NOTE | 2021-06-14 10:43 | HMH.PNCARD ---
Subjective Date: 06/14/21 Time: 10:43 Principal diagnosis: COVID Interval history: 56 yo WM in ICU, sedated and mechanically ventilated. Off pressors. Tele is sinus isaías. Exam Vital signs and Labs for Last 24 Hours: Temp Pulse Resp BP Pulse Ox 98.0 F 55 L 28 H 103/56 L 98 06/14/21 08:00 06/14/21 10:22 06/14/21 10:00 06/14/21 09:00 06/14/21 10:00 Laboratory Results - last 24 hr 06/13/21 10:00: APTT 61.2 H* D 06/13/21 15:50: APTT 79.9 H* D 06/13/21 22:14: APTT 73.1 H* 06/14/21 04:20: APTT 80.4 H* 06/14/21 04:20: WBC 12.1 H, RBC 3.48 L, Hgb 10.7 L, Hct 33.5 L, MCV 96.3 H, MCH 30.8, MCHC 32.0, RDW 12.3, Plt Count 373 D, MPV 9.1, Neut % (Auto) 88.6 H, Lymph % (Auto) 5.2 L, [place] % (Auto) 5.9, Eos % (Auto) 0.1, Baso % (Auto) 0.3, Neut # (Auto) 10.7 H, Lymph # (Auto) 0.6 L, [place] # (Auto) 0.7, Eos # (Auto) 0.0, Baso # (Auto) 0.0, Total Counted 100, Neutrophils % (Manual) 92 H, Lymphocytes % (Manual) 8 L, Platelet Estimate Normal, Stomatocytes 1+ 06/14/21 04:20: Sodium 143, Potassium 4.9 D, Chloride 107, Carbon Dioxide 30, Anion Gap 10.9, BUN 29 H D, Creatinine 0.80, Estimated Creat Clear 116, Estimated GFR 101, Est GFR ( Amer) 122, Glucose 175 H, Calcium 7.9 L, Total Bilirubin 0.2, AST 32, ALT 50 D, Alkaline Phosphatase 79, Total Protein 5.4 L, Albumin 2.4 L, Globulin 3.0, Albumin/Globulin Ratio 0.8 L 06/14/21 06:56: Specimen Source Right radial, O2 % 80, ABG pH 7.40, ABG pCO2 46.7 H, ABG pO2 90.5, ABG HCO3 28.2 H, ABG Total CO2 29.6 H, ABG O2 Saturation 97, ABG Base Excess 3.4 H, Luis Test Patient unable, Vent Rate 28, Tidal Volume 440, PEEP 14 I & O for Last 24 hours: Intake & Output 06/11/21 06/12/21 06/13/21 06/14/21 11:59 11:59 11:59 11:59 Intake Total 767.708 / 551.592 7282.846 / 4725.846 3432.058 / 3547.058 2535.226 / 2535.226 Output Total 1020 / 1370 4690 / 5015 1836 / 1936 2292 / 2292 Balance -252.292 / -602.292 35.846 / -546.298 0119.058 / 1611.058 243.226 / 243.226 Weight 162 lb 1.6 oz 166 lb 11.452 oz 171 lb 9.6 oz 174 lb 9.6 oz Microbiology Reports for the Last 24 Hours: Microbiology 06/11/21 07:21 Anus CRE Surveillance Culture - Final Negative 06/11/21 06:00 Urine,Catheterized Urine Culture - Final NO GROWTH AFTER 48 HOURS - *Routine Respiratory Exam Present: patient mechanically ventilated - *Routine Cardiovascular Exam Present: RRR Progress Note: A&P (1) COVID-19 Status: Acute (2) Respiratory failure with hypoxia Status: Acute (3) COVID-19 virus infection Status: Acute (4) Chest pain Status: Acute (5) CAD (coronary artery disease) Status: Chronic (6) HLD (hyperlipidemia) Status: Chronic (7) HTN (hypertension) Status: Chronic (8) Acute respiratory failure due to COVID-19 Status: Acute (9) PAF (paroxysmal atrial fibrillation) Status: Acute (10) Enlarged heart Status: Acute Assessment and Plan for All Diagnoses:: 1. COVID pneumonia, currently intubated on [facility] vent 2. PAF, converted with IV diltiazem. Maintaining sinus rhythm with digoxin for rate control. On heparin drip for Covid protocol. Would recommend oral anticoagulation when off vent. 3. CAD with history of [place]. Normal [place] myoview, 09/2020. Continue ASA. 4. History of HTN, currently off vasopressor support. 5. Right heart enlargement on echo related to acute on chronic lung issues.
[2021-06-14 12:45] LABS: Activated Partial Thrombo Time 74.4 seconds (22.8-30.6)
--- NOTE | 2021-06-14 12:55 | PC.NURSE ---
ptt called to pharmacy
--- NOTE | 2021-06-14 14:55 | PC.NURSE ---
Lungs clear but diminished. Bowel sounds hypo x4. He has been turned q2hrs and oral care provided. Callejas is bedside draining green tinted urine. Tube feeds running at 40mls/hr. Residuals have been < 5mls at checks. No fevers or bm noted as of yet. updated on plan of care. Will continue to monitor.
[2021-06-15] VITALS (36 sets, daily range): BP systolic 90–118; BP diastolic 47–66; PULSE 54–105; RESP 28; TEMP 36.6–37.3; O2SAT 88–99; BMI 26.9
[2021-06-15 03:03] LABS: Basophils % 0.2 % (0.1-2.0); Eosinophils % 0.1 % (0.1-12.0); Hematocrit 33.6 % (42.0-52.0); Hemoglobin 10.4 g/dL (14.1-18.0); Lymphocytes # 0.6 K/mm3 (0.7-4.5); Lymphocytes % 5.1 % (10-50); Mean Corpuscular Hemoglobin 30.4 pg (27.0-31.2); Mean Corpuscular Volume 98.1 fl (80-94); Mean Platelet Volume 9.4 fl (7.4-10.4); Monocytes # 0.9 K/mm3 (0.1-1.0); Monocytes % 7.1 % (1.7-9.3); Neutrophils # 10.7 K/mm3 (1.8-7.8); Neutrophils % 87.6 % (37.0-80.0); Platelet Count 402 K/mm3 (142-424); Red Blood Count 3.42 M/mm3 (4.60-6.20); Red Cell Distribution Width 12.2 % (11.5-17.5); White Blood Count 12.2 K/mm3 (4.8-10.8)
[2021-06-15 03:10] LABS: MANUAL DIFFERENTIAL MANUAL DIFFERENTIAL (MANUAL DIFF)
[2021-06-15 03:11] LABS: Alanine Aminotransferase 48 U/L (12-78); Albumin Level 2.4 g/dl (3.5-5.0); Albumin/Globulin Ratio 0.8 (1.1-1.8); Alkaline Phosphatase 83 U/L (38-126); Anion Gap 10.2 mEq/L (5-15); Aspartate Amino Transferase 36 U/L (17-59); Bilirubin,Total 0.2 mg/dl (0.2-1.3); Blood Urea Nitrogen 39 mg/dl (9-20); Calcium 7.5 mg/dl (8.4-10.2); Carbon Dioxide 30 mmol/L (22.0-30.0); Chloride 105 mmol/L (98-107); Creatinine Clearance Estimated 105 mL/min (50-200); Estimated Glomerular Filt Rate 88 ml/min (>60); GFR (African American) 106 ML/MIN (>60); Globulin 2.9 g/dL (1.3-3.2); Glucose 166 mg/dl (74-100); Potassium 5.2 mmoL/L (3.5-5.1); Sodium 140 mmol/L (136-145); Total Protein,Serum 5.3 g/dl (6.3-8.2)
--- NOTE | 2021-06-15 03:12 | PC.NURSE ---
He continues to be intubated and sedated. He become febrile during the shift and received PRN medication. He is not febrile at this time. He continues with pulmocare tube feedings. NSR on telemetry but has been isaías at times. When he was febrile his O2 decreased to 88-89% and respiratory increased his FiO2 to 100%. He has since been weaned back to 80% FiO2.
[2021-06-15 03:30] LABS: Activated Partial Thrombo Time 74.9 seconds (22.8-30.6)
[2021-06-15 04:13] LABS: Lymphocytes % 9 % (10-50); Neutrophils % 91 % (42-76); Total Cells Counted 100
[2021-06-15 04:16] LABS: Platelet Estimate Normal; Stomatocytes 1+
--- NOTE | 2021-06-15 06:00 | XR_ITS ---
PROCEDURE INFORMATION: Exam: XR Chest Exam date and time: 06/15/2021 6:00 AM Age: 56 years old Clinical indication: Device placement; Ett placement (vent status); Additional info: Covid pna TECHNIQUE: Imaging protocol: XR of the chest. Views: 1 view. COMPARISON: CR XR CHEST PORTABLE 06/14/2021 5:16 AM FINDINGS: Tubes, catheters and devices: Endotracheal tube noted with the tip above the adriane approximately 4.0 cm. The endogastric tube is noted with distal portion overlying the stomach. A left subclavian central venous catheter is present, with its tip overlying the region of the superior vena cava. Multiple overlying cardiac leads are present. Lungs: Bilateral diffuse airspace opacities, without significant interval change. Pleural spaces: Unremarkable. No pleural effusion. No pneumothorax. Heart/Mediastinum: Unremarkable. No cardiomegaly. Bones/joints: Unremarkable. IMPRESSION: 1. Bilateral diffuse airspace opacities, without significant interval change. 2. Support catheters noted, as above. No pneumothorax.
[2021-06-15 07:34] LABS: ABG Base Excess 0.7 mmol/L (-2.4-2.3); ABG HCO3 26.2 mmhg (22.0-26.0); ABG Oxygen Saturation 89 % (90-100); ABG PH 7.36 mmol/L (7.35-7.45); ABG PO2 63.2 mmhg (80-100); ABG TCO2 27.7 mmhg (23-27)
[2021-06-15 07:36] LABS: Allen's Test Acceptable; Oxygen 90 %; PEEP 14; Source Left Radial; Tidal Volume 440; Vent Rate 28
--- NOTE | 2021-06-15 09:12 | HMH.PULMPN ---
Internal Medicine - PN: Subj *Date: 06/15/21 *Time: 13:45 Interval history: No acute respiratory vents overnight. Continues remain on stable ventilator settings. Exam - Constitutional Constitutional:: Present: no acute distress, comfortable - HENMT Exam HENMT: Present: normocephalic - Eye Exam Eyes:: Present: normal appearance both eyes and related structures - Neck Exam Neck:: Present: normal visual inspection - Respiratory Exam Respiratory:: Present: respiratory distress, crackles, rales - Cardiovascular Exam Cardiac:: Present: S1, S2 - GI Exam GI:: Present: soft, rigid - Skin Exam Skin: Present: warm - Neurological Exam Intubated and sedated - Extremities Exam Extremities: Present: no cyanosis, no clubbing, extremity cold to touch Assessment and Plan (1) Enlarged heart Status: Acute Category: Medical Code(s): I51.7 - Cardiomegaly (2) COVID-19 Status: Acute Category: Medical Code(s): U07.1 - COVID-19 (3) Respiratory failure with hypoxia Status: Acute Qualifiers: Chronicity: acute Qualified Code(s): J96.01 - Acute respiratory failure with hypoxia Category: Medical Code(s): J96.91 - Respiratory failure, unspecified with hypoxia (4) COVID-19 virus infection Status: Acute Category: Medical Code(s): U07.1 - COVID-19 (5) Chest pain Status: Acute Qualifiers: Chest pain type: unspecified Qualified Code(s): R07.9 - Chest pain, unspecified Category: Medical Code(s): R07.9 - Chest pain, unspecified (6) CAD (coronary artery disease) Status: Chronic Qualifiers: Coronary Disease-Associated Artery/Lesion type: [place] artery [place] vs. transplanted heart: [place] heart Associated angina: without angina Qualified Code(s): I25.10 - Atherosclerotic heart disease of [place] coronary artery without angina pectoris Category: Medical Code(s): I25.10 - Atherosclerotic heart disease of [place] coronary artery without angina pectoris (7) HLD (hyperlipidemia) Status: Chronic Qualifiers: Hyperlipidemia type: mixed hyperlipidemia Qualified Code(s): E78.2 - Mixed hyperlipidemia Category: Medical Code(s): E78.5 - Hyperlipidemia, unspecified (8) HTN (hypertension) Status: Chronic Qualifiers: Hypertension type: primary hypertension Qualified Code(s): I10 - Essential (primary) hypertension Category: Medical Code(s): I10 - Essential (primary) hypertension (9) Acute respiratory failure due to COVID-19 Status: Acute Category: Medical Code(s): U07.1 - COVID-19; J96.00 - Acute respiratory failure, unspecified whether with hypoxia or hypercapnia (10) PAF (paroxysmal atrial fibrillation) Status: Acute Category: Medical Code(s): I48.0 - Paroxysmal atrial fibrillation - Assessment and plan all Dx Assessment and Plan for all problems:: #Acute hypoxic respiratory failure: #COVID-19 pneumonia: #Pulmonary emboli: Mr. Valadez is 56-year-old male no prior respiratory complaint presented to the hospital worsening respiratory symptoms 1 day positive for COVID-19 pneumonia. Chest x-ray on admission showed bilateral lower lobe pulmonary infiltrates. D-dimer elevated 0.84. CRP elevated at 204. Ferritin at 1600. CTA showed evidence of pulmonary embolism. Plan: - Continue AnalgoSedation with Propofol and Fentanyl with CPOT gal less than or euqal to 2 and RASS goal of 1 to 2 - VAP bundle Elevate head of the bed at 30 to 45 degrees Oral care with chlorhexidne GI ulcer prophylaxis - Famotidine 20mg IV BID -Lasix 40mg IV once -Continue mechanical ventilatory support, ABG and chest x-ray reviewed - -Continue remdesivir, dexamethasone 6mg daily and Barcitinib for his COVID-19 pneumonia. -Continue ceftriaxone azithromycin for possible community-acquired pneumonia. Endotracheal aspirate from 06/11 still pending. -Nebs every 4 hours scheduled -Continue heparin drip for pulmonary embolism Abdomen soft and
[2021-06-15 09:25] LABS: Activated Partial Thrombo Time 70.3 seconds (22.8-30.6)
--- NOTE | 2021-06-15 09:26 | PC.NURSE ---
0928 - PTT 70.3, called to [facility]. States to leave heparin gtt @ the same rate of 1000 units/hr.
--- NOTE | 2021-06-15 09:34 | HMH.ACPN2 ---
Internal Medicine - PN: Subj *Date: 06/15/21 *Time: 16:58 Interval history: 56-year-old male patient lying in bed intubated and sedated. Current ventilator settings AC 28/440/90 +14, problems during the night advancing tube feed due to increased residuals. Norepinephrine infusing at 2 mcg/kg/min and attempting to wean. Exam Vital signs and Labs for Last 24 Hours: Temp Pulse Resp BP Pulse Ox 98.3 F 83 28 H 113/66 89 L 06/15/21 06:26 06/15/21 08:55 06/15/21 08:55 06/15/21 08:55 06/15/21 08:55 Laboratory Results - last 24 hr 06/14/21 12:00: APTT 74.4 H* 06/14/21 16:45: APTT 78.0 H* 06/15/21 02:48: APTT 74.9 H* 06/15/21 02:48: WBC 12.2 H, RBC 3.42 L, Hgb 10.4 L, Hct 33.6 L, MCV 98.1 H, MCH 30.4, MCHC 31.0 L, RDW 12.2, Plt Count 402, MPV 9.4, Neut % (Auto) 87.6 H, Lymph % (Auto) 5.1 L, [place] % (Auto) 7.1, Eos % (Auto) 0.1, Baso % (Auto) 0.2, Neut # (Auto) 10.7 H, Lymph # (Auto) 0.6 L, [place] # (Auto) 0.9, Eos # (Auto) 0.0, Baso # (Auto) 0.0, Total Counted 100, Neutrophils % (Manual) 91 H, Lymphocytes % (Manual) 9 L, Platelet Estimate Normal, Stomatocytes 1+ 06/15/21 02:48: Sodium 140, Potassium 5.2 H, Chloride 105, Carbon Dioxide 30, Anion Gap 10.2, BUN 39 H D, Creatinine 0.90, Estimated Creat Clear 105, Estimated GFR 88, Est GFR ( Amer) 106, Glucose 166 H, Calcium 7.5 L, Total Bilirubin 0.2, AST 36, ALT 48, Alkaline Phosphatase 83, Total Protein 5.3 L, Albumin 2.4 L, Globulin 2.9, Albumin/Globulin Ratio 0.8 L 06/15/21 07:00: Specimen Source Left radial, O2 % 90, ABG pH 7.36, ABG pCO2 48.0 H, ABG pO2 63.2 L, ABG HCO3 26.2 H, ABG Total CO2 27.7 H, ABG O2 Saturation 89 L, ABG Base Excess 0.7, Luis Test Acceptable, Vent Rate 28, Tidal Volume 440, PEEP 14 06/15/21 08:40: APTT 70.3 H* I & O for Last 24 hours: Intake & Output 06/12/21 06/13/21 06/14/21 06/15/21 23:59 23:59 23:59 23:59 Intake Total 2990.495 / 2990.495 2872.393 / 2872.393 2743.708 / 2743.708 1388.167 / 1388.167 Output Total 2161 / 2161 1740 / 1815 2715 / 2715 1300 / 1300 Balance 829.495 / 692.501 6872.393 / 1057.393 28.708 / 28.708 88.167 / 88.167 Weight 166 lb 11.452 oz 171 lb 9.6 oz 174 lb 9.6 oz 177 lb 12.8 oz Microbiology Reports for the Last 24 Hours: Microbiology 06/11/21 07:21 Anus CRE Surveillance Culture - Final Negative - Constitutional no acute distress, chronically ill appearing - *Routine HEENT Exam Head: Present: normocephalic Eye: Present: EOMI ENT: Present: mucous membranes moist - *Routine Neck Exam Present: trachea midline. Absent: tracheal deviation - *Routine Respiratory Exam Present: patient mechanically ventilated, crackles. Absent: accessory muscle use - *Routine Cardiovascular Exam Present: RRR - *Routine Abdominal Exam Present: soft, normoactive bowel sounds. Absent: distended, firm - *Routine Extremities Exam Present: pulses intact. Absent: cyanosis, clubbing - *Routine Skin Exam Present: intact, dry, warm. Absent: cyanosis, erythema Comments: LSC TLC - *Routine Neurological Exam Present: altered mental status Sedated - Routine Psychiatric Exam Present: unable to assess Comments: Sedated Assessment and Plan (1) Enlarged heart Status: Acute Category: Medical Code(s): I51.7 - Cardiomegaly (2) COVID-19 Status: Acute Category: Medical Code(s): U07.1 - COVID-19 (3) Respiratory failure with hypoxia Status: Acute Qualifiers: Chronicity: acute Qualified Code(s): J96.01 - Acute respiratory failure with hypoxia Category: Medical Code(s): J96.91 - Respiratory failure, unspecified with hypoxia (4) COVID-19 virus infection Status: Acute Category: Medical Code(s): U07.1 - COVID-19 (5) Chest pain Status: Acute Qualifiers: Chest pain type: unspecified Qualified Code(s): R07.9 - Chest pain, unspecified Category: Medical Code(s): R07.9 - Chest pain, unspecified (6) CAD (coronary artery disease)
--- NOTE | 2021-06-15 10:18 | PC.NURSE ---
Dr. Bradley increased FIO2 to 100% @ this time.
--- NOTE | 2021-06-15 11:42 | PC.NURSE ---
Residual @ 1130 - 30 mls/hr, Pulmocare TF increased to 50 mls/hr @ this time.
--- NOTE | 2021-06-15 15:07 | HMH.PNCARD ---
Subjective Date: 06/15/21 Time: 15:07 Principal diagnosis: COVID Interval history: Patient was not seen today but case was discussed with attending nurse. Reportedly digoxin has been held over concern for low blood pressure. I have instructed the nurse to continue giving the digoxin as it should not affect the patient's blood pressure. She reports the pulmonary status is unchanged. Exam Vital signs and Labs for Last 24 Hours: Temp Pulse Resp BP Pulse Ox 98.2 F 93 H 28 H 103/61 L 93 L 06/15/21 12:00 06/15/21 14:00 06/15/21 14:00 06/15/21 14:00 06/15/21 14:00 Laboratory Results - last 24 hr 06/14/21 16:45: APTT 78.0 H* 06/15/21 02:48: APTT 74.9 H* 06/15/21 02:48: WBC 12.2 H, RBC 3.42 L, Hgb 10.4 L, Hct 33.6 L, MCV 98.1 H, MCH 30.4, MCHC 31.0 L, RDW 12.2, Plt Count 402, MPV 9.4, Neut % (Auto) 87.6 H, Lymph % (Auto) 5.1 L, [place] % (Auto) 7.1, Eos % (Auto) 0.1, Baso % (Auto) 0.2, Neut # (Auto) 10.7 H, Lymph # (Auto) 0.6 L, [place] # (Auto) 0.9, Eos # (Auto) 0.0, Baso # (Auto) 0.0, Total Counted 100, Neutrophils % (Manual) 91 H, Lymphocytes % (Manual) 9 L, Platelet Estimate Normal, Stomatocytes 1+ 06/15/21 02:48: Sodium 140, Potassium 5.2 H, Chloride 105, Carbon Dioxide 30, Anion Gap 10.2, BUN 39 H D, Creatinine 0.90, Estimated Creat Clear 105, Estimated GFR 88, Est GFR ( Amer) 106, Glucose 166 H, Calcium 7.5 L, Total Bilirubin 0.2, AST 36, ALT 48, Alkaline Phosphatase 83, Total Protein 5.3 L, Albumin 2.4 L, Globulin 2.9, Albumin/Globulin Ratio 0.8 L 06/15/21 07:00: Specimen Source Left radial, O2 % 90, ABG pH 7.36, ABG pCO2 48.0 H, ABG pO2 63.2 L, ABG HCO3 26.2 H, ABG Total CO2 27.7 H, ABG O2 Saturation 89 L, ABG Base Excess 0.7, Luis Test Acceptable, Vent Rate 28, Tidal Volume 440, PEEP 14 06/15/21 08:40: APTT 70.3 H* I & O for Last 24 hours: Intake & Output 06/13/21 06/14/21 06/15/21 06/16/21 11:59 11:59 11:59 11:59 Intake Total 3432.058 / 3547.058 2535.226 / 2535.226 2891.250 / 2931.250 52.708 / 52.708 Output Total 1836 / 1936 2370 / 2579 2570 / 2600 180 / 180 Balance 1596.058 / 1611.058 165.226 / -43.774 321.250 / 331.250 -127.292 / -127.292 Weight 171 lb 9.6 oz 174 lb 9.6 oz 177 lb 12.8 oz Microbiology Reports for the Last 24 Hours: Microbiology 06/11/21 05:45 Sputum - Endotracheal Tube Aspirate Gram Stain - Final 06/11/21 05:45 Sputum - Endotracheal Tube Aspirate Sputum Culture - Final No growth. Narrative: Patient not seen. Progress Note: A&P (1) COVID-19 Status: Acute (2) Respiratory failure with hypoxia Status: Acute (3) COVID-19 virus infection Status: Acute (4) Chest pain Status: Acute (5) CAD (coronary artery disease) Status: Chronic (6) HLD (hyperlipidemia) Status: Chronic (7) HTN (hypertension) Status: Chronic (8) Acute respiratory failure due to COVID-19 Status: Acute (9) PAF (paroxysmal atrial fibrillation) Status: Acute (10) Enlarged heart Status: Acute Assessment and Plan for All Diagnoses:: Continue digoxin for rate control. Patient would need oral anticoagulation once off the ventilator. Nothing to add at this time. Please call if needed.
--- NOTE | 2021-06-15 17:20 | PC.NURSE ---
Addendum entered by Marina De Dios RN 06/15/21 18:15: 1800 GRV = 120, TF restarted @ 20 mls/hr Original Note: Pt remains vented. Lungs diminished upon auscultation. Sat 92-95%. HR regular, 80-100 bmp. Generalized +1 edema. Abdomen soft, round, BS hypoactive. 1200 - GRV = 230, continue tube feed @ 40 mls/hr; 1600 - GRV = 260 mls/hr, holding tube feed @ this time, will recheck GRV and resume if appropriate. Skin intact. Pt turned Q2H. Callejas cath care performed this shift. Callejas to drain @ bedside w/ clear yellow urine. No BM this shift, pt started on colace per OGT. Oral care/suctioning Q2Hprn. Minimal secretions this shift. has called today and was updated on POC.
--- NOTE | 2021-06-15 19:10 | XR_ITS ---
PROCEDURE INFORMATION: Exam: XR Abdomen Exam date and time: 06/15/2021 7:10 PM Age: 56 years old Clinical indication: Bloating; Additional info: Distended abdomen covid intubated TECHNIQUE: Imaging protocol: XR of the abdomen. Views: Frontal supine view of the abdomen. 1 View. COMPARISON: CR XR CHEST PORTABLE 06/15/2021 5:13 AM FINDINGS: Tubes, catheters and devices: Catheter noted projecting over the pelvis. Lungs: Partially visualized airspace disease in the bilateral lung bases. Small pleural effusions, right greater than left. Gastrointestinal tract: There is a relative paucity of bowel gas within the abdomen. No specific features of bowel obstruction. Intraperitoneal space: Perceived increased lucency in the bilateral flank regions, raising the possibility of pneumoperitoneum, versus artifact. No obvious accumulation of free of the diaphragm on this supine image. Bones/joints: Mild dextroconvex lumbar curvature, probably related to positioning. Lower lumbar spondylosis. Body wall edema with soft tissue swelling in the left flank and hip region. IMPRESSION: 1. Perceived increased lucency in the bilateral flank regions, raising the possibility of pneumoperitoneum. Advise correlation with dedicated lateral decubitus or cross-table lateral radiographs, versus CT. 2. No evidence of bowel obstruction. 3. Partially imaged abnormal appearance of the lung bases compatible with pneumonia and small effusions.
--- NOTE | 2021-06-15 21:09 | XR_ITS ---
PROCEDURE INFORMATION: Exam: XR Abdomen Exam date and time: 06/15/2021 9:09 PM Age: 56 years old Clinical indication: Bloating; Additional info: More detail of prior kub decubitius abdomen xray per radiologist to RO pneuoperitineum TECHNIQUE: Imaging protocol: XR of the abdomen. Views: Frontal supine view of the abdomen. 1 View. COMPARISON: CR XR KUB 06/15/2021 7:19 PM FINDINGS: Lungs: Partially imaged abnormal appearance of the lung bases with consolidation and effusions. Gastrointestinal tract: No dilated loops of bowel to suggest obstruction. Intraperitoneal space: Previously suggested lucency in the right flank region is slightly less conspicuous than prior supine image, and likely relates to fat planes. There is no pneumoperitoneum. Bones/joints: Lumbar degenerative changes. IMPRESSION: No pneumoperitoneum.
[2021-06-16] VITALS (31 sets, daily range): BP systolic 81–134; BP diastolic 41–69; PULSE 58–84; RESP 22–30; TEMP 36.5–37.4; O2SAT 97–100; BMI 26.7
--- NOTE | 2021-06-16 00:38 | PC.NURSE ---
RESPIRATORY CARE NOTE: RT NOTIFIED OF CUFF LEAK; RT INCREASED CUFF PRESSURE PER ELEMENTARY PRINCIPAL. WILL CONTINUE TO MONITOR PT MOVING FORWARD.
--- NOTE | 2021-06-16 04:28 | PC.NURSE ---
GRV (Gastric Residual Volume) checked at this time and was 170ml. Feeds paused, will reassess. 1 pea size clot and red-tinge color noted of GRV.
[2021-06-16 05:35] LABS: Basophils # 0.2 K/mm3 (0-0.2); Basophils % 0.7 % (0.1-2.0); Eosinophils % 0.2 % (0.1-12.0); Hematocrit 36.2 % (42.0-52.0); Hemoglobin 11.3 g/dL (14.1-18.0); Lymphocytes # 1.5 K/mm3 (0.7-4.5); Lymphocytes % 6.5 % (10-50); Mean Corpuscular HGB Conc 31.1 g/dL (31.8-35.4); Mean Corpuscular Hemoglobin 30.9 pg (27.0-31.2); Mean Corpuscular Volume 99.1 fl (80-94); Mean Platelet Volume 9.4 fl (7.4-10.4); Monocytes # 1.7 K/mm3 (0.1-1.0); Monocytes % 7.1 % (1.7-9.3); Neutrophils % 85.5 % (37.0-80.0); Platelet Count 459 K/mm3 (142-424); Red Blood Count 3.65 M/mm3 (4.60-6.20); Red Cell Distribution Width 12.3 % (11.5-17.5); White Blood Count 23.3 K/mm3 (4.8-10.8)
[2021-06-16 05:37] LABS: MANUAL DIFFERENTIAL MANUAL DIFFERENTIAL (MANUAL DIFF)
[2021-06-16 05:42] LABS: Chloride 102 mmol/L (98-107)
[2021-06-16 05:43] LABS: Potassium 5.4 mmoL/L (3.5-5.1); Sodium 137 mmol/L (136-145)
[2021-06-16 05:44] LABS: Hypochromasia 2+; Lymphocytes % 14 % (10-50); Macrocytosis 1+; Monocytes % 2 % (2-9); Neutrophils % 80 % (42-76); Platelet Estimate Slight Increase; Total Cells Counted 100
[2021-06-16 05:45] LABS: Alanine Aminotransferase 51 U/L (12-78); Albumin Level 2.7 g/dl (3.5-5.0); Albumin/Globulin Ratio 0.9 (1.1-1.8); Alkaline Phosphatase 95 U/L (38-126); Anion Gap 12.4 mEq/L (5-15); Aspartate Amino Transferase 45 U/L (17-59); Blood Urea Nitrogen 63 mg/dl (9-20); Carbon Dioxide 28 mmol/L (22.0-30.0); Creatinine Clearance Estimated 60 mL/min (50-200); Estimated Glomerular Filt Rate 45 ml/min (>60); GFR (African American) 55 ML/MIN (>60); Globulin 3.1 g/dL (1.3-3.2); Total Protein,Serum 5.8 g/dl (6.3-8.2)
[2021-06-16 05:46] LABS: Calcium 7.7 mg/dl (8.4-10.2); Glucose 131 mg/dl (74-100)
[2021-06-16 05:47] LABS: Bilirubin,Total 0.1 mg/dl (0.2-1.3)
--- NOTE | 2021-06-16 06:00 | XR_ITS ---
PROCEDURE INFORMATION: Exam: XR Chest Exam date and time: 06/16/2021 6:00 AM Age: 56 years old Clinical indication: Device placement; Ett placement (vent status); Additional info: Covid pna TECHNIQUE: Imaging protocol: XR of the chest. Views: 1 view. COMPARISON: CR XR CHEST PORTABLE 06/15/2021 5:13 AM FINDINGS: Tubes, catheters and devices: Endotracheal tube well positioned 5.5 cm above the adriane. Overlying monitoring leads. Left subclavian central catheter with tip overlying the superior vena cava. Nasogastric tube tip and side hole overlying the left upper quadrant of the abdomen. Lungs: Low lung volumes. Bilateral airspace opacities perhaps most prominent in the left mid and lower lung zones. Pleural spaces: No pneumothorax. Heart/Mediastinum: Cardiac silhouette not enlarged. Bones/joints: Unremarkable. IMPRESSION: 1. Persistent bilateral airspace opacities. 2. Catheters as described.
[2021-06-16 06:06] LABS: Activated Partial Thrombo Time 74.2 seconds (22.8-30.6)
--- NOTE | 2021-06-16 06:49 | PC.NURSE ---
Per [facility] no change to Heparin gtt. Per Dr. Castro, wean fentanyl to 125 mcg and propofol to 50mcg
[2021-06-16 07:11] LABS: ABG Base Excess 0.6 mmol/L (-2.4-2.3); ABG Oxygen Saturation 99 % (90-100); ABG PH 7.24 mmol/L (7.35-7.45); ABG PO2 131.4 mmhg (80-100)
[2021-06-16 07:35] LABS: Oxygen 100 %
[2021-06-16 07:36] LABS: ABG PCO2 66.3 mmhg (35.0-45.0); Allen's Test Patient Unable; PEEP 14; Source Right Radial; Tidal Volume 440; Vent Rate 28
--- NOTE | 2021-06-16 09:00 | PC.NURSE ---
RESPIRATORY CARE: VENT CHANGES MADE PER . RR INCREASED TO 30 AND VT INCREASED TO 480. PT TOLERATED CHANGES WELL AT THIS TIME. SPUTUM SAMPLE ALSO OBTAINED AND SENT TO LAB.
--- NOTE | 2021-06-16 10:59 | PC.NURSE ---
Pt's called, she was updated on plan of care @ this time.
--- NOTE | 2021-06-16 11:24 | HMH.ACPN2 ---
Internal Medicine - PN: Subj *Date: 06/17/21 *Time: 01:06 Interval history: doing better - intubated Exam Vital signs and Labs for Last 24 Hours: Temp Pulse Resp BP Pulse Ox 98.2 F 59 L 30 H 112/62 98 06/16/21 09:00 06/16/21 11:00 06/16/21 11:00 06/16/21 11:00 06/16/21 11:00 Laboratory Results - last 24 hr 06/16/21 05:15: APTT 74.2 H* 06/16/21 05:15: WBC 23.3 H* D, RBC 3.65 L, Hgb 11.3 L, Hct 36.2 L, MCV 99.1 H, MCH 30.9, MCHC 31.1 L, RDW 12.3, Plt Count 459 H, MPV 9.4, Neut % (Auto) 85.5 H, Lymph % (Auto) 6.5 L, [place] % (Auto) 7.1, Eos % (Auto) 0.2, Baso % (Auto) 0.7, Neut # (Auto) 20.0 H, Lymph # (Auto) 1.5, [place] # (Auto) 1.7 H, Eos # (Auto) 0.0, Baso # (Auto) 0.2, Total Counted 100, Neutrophils % (Manual) 80 H, Band Neutrophils % 4.0, Lymphocytes % (Manual) 14, Monocytes % (Manual) 2, Platelet Estimate Slight increase, Hypochromasia 2+, Macrocytosis 1+ 06/16/21 05:15: Sodium 137, Potassium 5.4 H, Chloride 102, Carbon Dioxide 28, Anion Gap 12.4, BUN 63 H D, Creatinine 1.60 H D, Estimated Creat Clear 60, Estimated GFR 45 L, Est GFR ( Amer) 55 L D, Glucose 131 H, Calcium 7.7 L, Total Bilirubin 0.1 L, AST 45, ALT 51, Alkaline Phosphatase 95, Total Protein 5.8 L, Albumin 2.7 L D, Globulin 3.1, Albumin/Globulin Ratio 0.9 L 06/16/21 06:00: Specimen Source Right radial, O2 % 100, ABG pH 7.24 L*, ABG pCO2 66.3 H, ABG pO2 131.4 H, ABG HCO3 28.0 H, ABG Total CO2 30.0 H, ABG O2 Saturation 99, ABG Base Excess 0.6, Luis Test Patient unable, Vent Rate 28, Tidal Volume 440, PEEP 14 I & O for Last 24 hours: Intake & Output 06/13/21 06/14/21 06/15/21 06/16/21 11:59 11:59 11:59 11:59 Intake Total 3432.058 / 3547.058 2535.226 / 2535.226 2891.250 / 2931.250 2025.291 / 202.291 Output Total 1836 / 1936 2370 / 2579 2570 / 2600 2220 / 2220 Balance 1596.058 / 1611.058 165.226 / -43.774 321.250 / 331.250 -194.709 / -194.709 Weight 171 lb 9.6 oz 174 lb 9.6 oz 177 lb 12.8 oz 176 lb 5 oz Microbiology Reports for the Last 24 Hours: Microbiology 06/11/21 05:45 Sputum - Endotracheal Tube Aspirate Gram Stain - Final 06/11/21 05:45 Sputum - Endotracheal Tube Aspirate Sputum Culture - Final No growth. - Constitutional Comments: intubated and sedated - *Routine HEENT Exam Head: Present: normocephalic Eye: Present: PERRL ENT: Present: mucous membranes dry - *Routine Neck Exam Absent: JVD - *Routine Respiratory Exam Present: patient mechanically ventilated - *Routine Cardiovascular Exam Present: RRR - *Routine Abdominal Exam Present: soft - *Routine Extremities Exam Present: edema - *Routine Skin Exam Present: intact - *Routine Neurological Exam sedated w/o posturing - Routine Psychiatric Exam Present: unable to assess Assessment and Plan (1) Enlarged heart Status: Acute Category: Medical Code(s): I51.7 - Cardiomegaly (2) COVID-19 Status: Acute Category: Medical Code(s): U07.1 - COVID-19 (3) Respiratory failure with hypoxia Status: Acute Qualifiers: Chronicity: acute Qualified Code(s): J96.01 - Acute respiratory failure with hypoxia Category: Medical Code(s): J96.91 - Respiratory failure, unspecified with hypoxia (4) COVID-19 virus infection Status: Acute Category: Medical Code(s): U07.1 - COVID-19 (5) Chest pain Status: Acute Qualifiers: Chest pain type: unspecified Qualified Code(s): R07.9 - Chest pain, unspecified Category: Medical Code(s): R07.9 - Chest pain, unspecified (6) CAD (coronary artery disease) Status: Chronic Qualifiers: Coronary Disease-Associated Artery/Lesion type: [place] artery [place] vs. transplanted heart: [place] heart Associated angina: without angina Qualified Code(s): I25.10 - Atherosclerotic heart disease of [place] coronary artery without angina pectoris Category: Medical Code(s): I25.10 - Atherosclerotic heart disease of [place] coronary artery w
--- NOTE | 2021-06-16 16:48 | PC.NURSE ---
No acute changes. TV increased to 480, rate increased to [address] Bradley this AM (changes made by RT). Sat has been high 90's. HR regular, 70-80. Abdomen soft, round. No BM this shift. Tube feeds restarted this AM @ 10 mls/hr, pt has tolerated well thus far. TF have been increased to 20 mls/hr slowly this shift w/ min GRV. Callejas cath to drain @ bedside. Pt has had good UOP, urine yellow and clear. Skin intact. Pt turned Q2H. Oral care and suctioning performed throughout shift. Callejas care performed. Levophed weaned to 1 mcg/min, did attempt to turn levo gtt off but pt MAP > 65. Propofol @ 50 mg/kg/min Fentanyl @ 125 mcg/hr
[2021-06-17] VITALS (32 sets, daily range): BP systolic 94–145; BP diastolic 53–85; PULSE 68–100; RESP 30–33; TEMP 37–37.5; O2SAT 30–100; BMI 26.6
--- NOTE | 2021-06-17 06:00 | XR_ITS ---
PROCEDURE INFORMATION: Exam: XR Chest Exam date and time: 06/17/2021 6:00 AM Age: 56 years old Clinical indication: Device placement; Ett placement (vent status); Additional info: Covid pna intubated TECHNIQUE: Imaging protocol: XR of the chest. Views: 1 view. COMPARISON: CR XR CHEST PORTABLE 06/16/2021 5:49 AM FINDINGS: There is an endotracheal tube with its tip 5.4 cm above the adriane. A nasogastric tube is noted with its tip in the stomach. There is a left subclavian catheter with its tip in the superior vena cava. Lungs: Bilateral airspace disease, interstitial in nature, within both mid and lower lung zones, unchanged since prior examination. Pleural spaces: Unremarkable. No pleural effusion. No pneumothorax. Heart/Mediastinum: Unremarkable. No cardiomegaly. Bones/joints: Unremarkable. IMPRESSION: The distribution and degree of airspace opacities within both lung graves is unchanged. Satisfactory of placement of lines within the chest since prior examination of 06/16/2021.
[2021-06-17 06:23] LABS: Basophils # 0.1 K/mm3 (0-0.2); Basophils % 0.4 % (0.1-2.0); Eosinophils # 0.1 K/mm3 (0.0-0.4); Eosinophils % 0.4 % (0.1-12.0); Hematocrit 33.2 % (42.0-52.0); Hemoglobin 10.1 g/dL (14.1-18.0); Lymphocytes # 1.1 K/mm3 (0.7-4.5); Mean Corpuscular HGB Conc 30.4 g/dL (31.8-35.4); Mean Corpuscular Hemoglobin 30.1 pg (27.0-31.2); Mean Platelet Volume 9.6 fl (7.4-10.4); Monocytes # 1.1 K/mm3 (0.1-1.0); Monocytes % 5.7 % (1.7-9.3); Neutrophils # 16.2 K/mm3 (1.8-7.8); Neutrophils % 87.5 % (37.0-80.0); Platelet Count 360 K/mm3 (142-424); Red Blood Count 3.35 M/mm3 (4.60-6.20); Red Cell Distribution Width 12.4 % (11.5-17.5); White Blood Count 18.6 K/mm3 (4.8-10.8)
[2021-06-17 06:26] LABS: MANUAL DIFFERENTIAL MANUAL DIFFERENTIAL (MANUAL DIFF)
[2021-06-17 06:36] LABS: Alanine Aminotransferase 46 U/L (12-78); Albumin Level 2.5 g/dl (3.5-5.0); Albumin/Globulin Ratio 0.8 (1.1-1.8); Alkaline Phosphatase 90 U/L (38-126); Anion Gap 8.4 mEq/L (5-15); Aspartate Amino Transferase 52 U/L (17-59); Bilirubin,Total 0.2 mg/dl (0.2-1.3); Blood Urea Nitrogen 58 mg/dl (9-20); Calcium 7.7 mg/dl (8.4-10.2); Carbon Dioxide 30 mmol/L (22.0-30.0); Chloride 105 mmol/L (98-107); Creatinine Clearance Estimated 73 mL/min (50-200); Estimated Glomerular Filt Rate 58 ml/min (>60); GFR (African American) 70 ML/MIN (>60); Glucose 110 mg/dl (74-100); Potassium 5.4 mmoL/L (3.5-5.1); Sodium 138 mmol/L (136-145); Total Protein,Serum 5.5 g/dl (6.3-8.2)
[2021-06-17 06:37] LABS: Activated Partial Thrombo Time 53.5 seconds (22.8-30.6)
[2021-06-17 06:46] LABS: Hypochromasia 2+; Lymphocytes % 12 % (10-50); Macrocytosis 1+; Neutrophils % 83 % (42-76); Platelet Estimate Normal; Total Cells Counted 100
[2021-06-17 07:31] LABS: ABG Oxygen Saturation 97 % (90-100); ABG PH 7.32 mmol/L (7.35-7.45); ABG PO2 93.2 mmhg (80-100); ABG TCO2 28.7 mmhg (23-27)
[2021-06-17 07:45] LABS: Allen's Test Patient Unable; Oxygen 100 %; PEEP 14; Source Right Radial; Tidal Volume 480; Vent Rate 30
[2021-06-17 07:46] LABS: ABG PCO2 53.3 mmhg (35.0-45.0)
--- NOTE | 2021-06-17 08:03 | PC.NURSE ---
Spoke w/ Dr. Bradley via phone. ABG results provided. No changes to vent settings. Orders received for 1 Liter LR Bolus x1, mag and phos labs this AM, MRSA swab to be collected.
--- NOTE | 2021-06-17 08:20 | PC.NURSE ---
Pt's called and was updated on plan of care @ 0833.
[2021-06-17 10:02] LABS: Magnesium 3.1 mg/dl (1.6-2.3); Phosphorous 3.7 mg/dl (2.5-4.5)
--- NOTE | 2021-06-17 12:32 | HMH.ACPN2 ---
Internal Medicine - PN: Subj *Date: 06/17/21 *Time: 08:30 Interval history: pt laying sedated on vent Exam Vital signs and Labs for Last 24 Hours: Temp Pulse Resp BP Pulse Ox 99.3 F 89 30 H 104/61 L 96 06/17/21 10:00 06/17/21 10:50 06/17/21 10:30 06/17/21 10:00 06/17/21 10:30 Laboratory Results - last 24 hr 06/17/21 05:21: APTT 53.5 H 06/17/21 05:21: WBC 18.6 H, RBC 3.35 L, Hgb 10.1 L, Hct 33.2 L, MCV 99.0 H, MCH 30.1, MCHC 30.4 L, RDW 12.4, Plt Count 360, MPV 9.6, Neut % (Auto) 87.5 H, Lymph % (Auto) 6.0 L, [place] % (Auto) 5.7, Eos % (Auto) 0.4, Baso % (Auto) 0.4, Neut # (Auto) 16.2 H, Lymph # (Auto) 1.1, [place] # (Auto) 1.1 H, Eos # (Auto) 0.1, Baso # (Auto) 0.1, Total Counted 100, Neutrophils % (Manual) 83 H, Band Neutrophils % 5.0, Lymphocytes % (Manual) 12, Platelet Estimate Normal, Hypochromasia 2+, Macrocytosis 1+ 06/17/21 05:21: Sodium 138, Potassium 5.4 H, Chloride 105, Carbon Dioxide 30, Anion Gap 8.4, BUN 58 H, Creatinine 1.30 H, Estimated Creat Clear 73, Estimated GFR 58 L, Est GFR ( Amer) 70 D, Glucose 110 H, Calcium 7.7 L, Total Bilirubin 0.2, AST 52, ALT 46, Alkaline Phosphatase 90, Total Protein 5.5 L, Albumin 2.5 L, Globulin 3.0, Albumin/Globulin Ratio 0.8 L 06/17/21 06:00: Specimen Source Right radial, O2 % 100, ABG pH 7.32 L, ABG pCO2 53.3 H, ABG pO2 93.2, ABG HCO3 27.0 H, ABG Total CO2 28.7 H, ABG O2 Saturation 97, ABG Base Excess 1.0, Luis Test Patient unable, Vent Rate 30, Tidal Volume 480, PEEP 14 06/17/21 08:10: Phosphorus 3.7, Magnesium 3.1 H I & O for Last 24 hours: Intake & Output 06/15/21 06/16/21 06/17/21 06/18/21 11:59 11:59 11:59 11:59 Intake Total 2891.250 / 2931.250 2025.291 / 2025.291 3867.788 / 3867.788 Output Total 2570 / 2600 2220 / 2570 3530 / 3530 Balance 321.250 / 331.250 -194.709 / -544.709 337.788 / 337.788 Weight 177 lb 12.8 oz 176 lb 5 oz 176 lb 4 oz Microbiology Reports for the Last 24 Hours: Microbiology 06/16/21 09:17 Urine,[place] Urine Culture - Preliminary NO GROWTH AFTER 24 HOURS 06/16/21 09:15 Sputum - Endotracheal Tube Aspirate Gram Stain - Final - Constitutional no acute distress - *Routine HEENT Exam Head: Present: normocephalic Eye: Present: PERRL ENT: Present: mucous membranes moist - *Routine Neck Exam Present: supple. Absent: lymphadenopathy - *Routine Respiratory Exam Present: patient mechanically ventilated - *Routine Cardiovascular Exam Present: RRR - *Routine Abdominal Exam Present: soft, normoactive bowel sounds. Absent: tenderness - *Routine Extremities Exam Absent: cyanosis, clubbing, edema - *Routine Skin Exam Present: warm. Absent: rash - *Routine Neurological Exam sedated - Routine Psychiatric Exam Present: unable to assess Assessment and Plan (1) Enlarged heart Status: Acute Category: Medical Code(s): I51.7 - Cardiomegaly (2) COVID-19 Status: Acute Category: Medical Code(s): U07.1 - COVID-19 (3) Respiratory failure with hypoxia Status: Acute Qualifiers: Chronicity: acute Qualified Code(s): J96.01 - Acute respiratory failure with hypoxia Category: Medical Code(s): J96.91 - Respiratory failure, unspecified with hypoxia (4) COVID-19 virus infection Status: Acute Category: Medical Code(s): U07.1 - COVID-19 (5) Chest pain Status: Acute Qualifiers: Chest pain type: unspecified Qualified Code(s): R07.9 - Chest pain, unspecified Category: Medical Code(s): R07.9 - Chest pain, unspecified (6) CAD (coronary artery disease) Status: Chronic Qualifiers: Coronary Disease-Associated Artery/Lesion type: [place] artery [place] vs. transplanted heart: [place] heart Associated angina: without angina Qualified Code(s): I25.10 - Atherosclerotic heart disease of [place] coronary artery without angina pectoris Category: Medical Code(s): I25.10 - Atherosclerotic heart disease of [place] coronary art
--- NOTE | 2021-06-17 16:54 | PC.NURSE ---
Pt's called @ [phone], updated on plan of care.
[2021-06-18] VITALS (34 sets, daily range): BP systolic 90–137; BP diastolic 53–75; PULSE 51–110; RESP 32–34; TEMP 36.9–37.9; O2SAT 85–100; BMI 27.3
--- NOTE | 2021-06-18 06:00 | XR_ITS ---
PROCEDURE INFORMATION: Exam: XR Chest Exam date and time: 06/18/2021 6:00 AM Age: 56 years old Clinical indication: Device placement; Ett placement (vent status); Additional info: PT intubated also low 02 sats TECHNIQUE: Imaging protocol: XR of the chest. Views: 1 view. COMPARISON: CR XR CHEST PORTABLE 06/17/2021 4:28 AM FINDINGS: Tubes, catheters and devices: Endotracheal tube 3.9 cm above the adriane. Nasogastric tube with the tip in the stomach. Left upper extremity line with the tip projecting over mid SVC. Lungs: Bilateral heterogeneous pulmonary opacities, similar compared to the prior study. Pleural spaces: Trace bilateral pleural effusions. Heart/Mediastinum: Unremarkable cardiomediastinal silhouette. Bones/joints: No acute osseous findings. IMPRESSION: Bilateral heterogeneous pulmonary opacities, similar compared to the prior study.
[2021-06-18 06:14] LABS: Basophils # 0.1 K/mm3 (0-0.2); Basophils % 0.5 % (0.1-2.0); Eosinophils # 0.1 K/mm3 (0.0-0.4); Eosinophils % 0.5 % (0.1-12.0); Hemoglobin 9.2 g/dL (14.1-18.0); Lymphocytes % 5.2 % (10-50); Mean Corpuscular HGB Conc 30.7 g/dL (31.8-35.4); Mean Corpuscular Hemoglobin 30.4 pg (27.0-31.2); Mean Platelet Volume 9.8 fl (7.4-10.4); Monocytes # 1.1 K/mm3 (0.1-1.0); Monocytes % 5.8 % (1.7-9.3); Neutrophils % 87.9 % (37.0-80.0); Platelet Count 314 K/mm3 (142-424); Red Blood Count 3.03 M/mm3 (4.60-6.20); Red Cell Distribution Width 12.4 % (11.5-17.5); White Blood Count 18.2 K/mm3 (4.8-10.8)
[2021-06-18 06:20] LABS: MANUAL DIFFERENTIAL MANUAL DIFFERENTIAL (MANUAL DIFF)
[2021-06-18 06:29] LABS: Hypochromasia 2+; Lymphocytes % 12 % (10-50); Macrocytosis 1+; Monocytes % 3 % (2-9); Neutrophils % 82 % (42-76); Platelet Estimate Normal; Total Cells Counted 100
[2021-06-18 06:34] LABS: Alanine Aminotransferase 51 U/L (12-78); Albumin Level 2.4 g/dl (3.5-5.0); Albumin/Globulin Ratio 0.9 (1.1-1.8); Alkaline Phosphatase 96 U/L (38-126); Anion Gap 8.2 mEq/L (5-15); Aspartate Amino Transferase 65 U/L (17-59); Bilirubin,Total 0.2 mg/dl (0.2-1.3); Blood Urea Nitrogen 46 mg/dl (9-20); Calcium 7.8 mg/dl (8.4-10.2); Carbon Dioxide 30 mmol/L (22.0-30.0); Chloride 104 mmol/L (98-107); Creatinine Clearance Estimated 109 mL/min (50-200); Estimated Glomerular Filt Rate 88 ml/min (>60); GFR (African American) 106 ML/MIN (>60); Globulin 2.8 g/dL (1.3-3.2); Glucose 97 mg/dl (74-100); Potassium 5.2 mmoL/L (3.5-5.1); Sodium 137 mmol/L (136-145); Total Protein,Serum 5.2 g/dl (6.3-8.2)
[2021-06-18 07:40] LABS: ABG Base Excess 2.9 mmol/L (-2.4-2.3); ABG HCO3 28.1 mmhg (22.0-26.0); ABG Oxygen Saturation 96 % (90-100); ABG PCO2 49.3 mmhg (35.0-45.0); ABG PH 7.37 mmol/L (7.35-7.45); ABG PO2 83.9 mmhg (80-100); ABG TCO2 29.6 mmhg (23-27)
[2021-06-18 07:45] LABS: Allen's Test Patient Unable; Oxygen 100 %; PEEP 14; Tidal Volume 480; Vent Rate 32
[2021-06-18 07:46] LABS: Source Right Radial
--- NOTE | 2021-06-18 11:22 | HMH.PULMPN ---
Internal Medicine - PN: Subj *Date: 06/18/21 *Time: 15:09 Interval history: No acute respiratory vents overnight. Exam - Constitutional Constitutional:: Present: no acute distress, comfortable - HENMT Exam HENMT: Present: normocephalic, moist mucous membranes - Eye Exam Eyes:: Present: normal appearance both eyes and related structures - Neck Exam Neck:: Present: normal visual inspection - Respiratory Exam Respiratory:: Present: crackles, rhonchi. Absent: wheezing - Cardiovascular Exam Cardiac:: Present: S1, S2 - GI Exam GI:: Present: soft - Skin Exam Skin: Present: warm, no rash - Neurological Exam Neurological: Absent: alert, awake, normal cognition Intubated and sedated - Extremities Exam Extremities: Present: no cyanosis, no clubbing, edema Assessment and Plan (1) Enlarged heart Status: Acute Category: Medical Code(s): I51.7 - Cardiomegaly (2) COVID-19 Status: Acute Category: Medical Code(s): U07.1 - COVID-19 (3) Respiratory failure with hypoxia Status: Acute Qualifiers: Chronicity: acute Qualified Code(s): J96.01 - Acute respiratory failure with hypoxia Category: Medical Code(s): J96.91 - Respiratory failure, unspecified with hypoxia (4) COVID-19 virus infection Status: Acute Category: Medical Code(s): U07.1 - COVID-19 (5) Chest pain Status: Acute Qualifiers: Chest pain type: unspecified Qualified Code(s): R07.9 - Chest pain, unspecified Category: Medical Code(s): R07.9 - Chest pain, unspecified (6) CAD (coronary artery disease) Status: Chronic Qualifiers: Coronary Disease-Associated Artery/Lesion type: [place] artery [place] vs. transplanted heart: [place] heart Associated angina: without angina Qualified Code(s): I25.10 - Atherosclerotic heart disease of [place] coronary artery without angina pectoris Category: Medical Code(s): I25.10 - Atherosclerotic heart disease of [place] coronary artery without angina pectoris (7) HLD (hyperlipidemia) Status: Chronic Qualifiers: Hyperlipidemia type: mixed hyperlipidemia Qualified Code(s): E78.2 - Mixed hyperlipidemia Category: Medical Code(s): E78.5 - Hyperlipidemia, unspecified (8) HTN (hypertension) Status: Chronic Qualifiers: Hypertension type: primary hypertension Qualified Code(s): I10 - Essential (primary) hypertension Category: Medical Code(s): I10 - Essential (primary) hypertension (9) Acute respiratory failure due to COVID-19 Status: Acute Category: Medical Code(s): U07.1 - COVID-19; J96.00 - Acute respiratory failure, unspecified whether with hypoxia or hypercapnia (10) PAF (paroxysmal atrial fibrillation) Status: Acute Category: Medical Code(s): I48.0 - Paroxysmal atrial fibrillation - Assessment and plan all Dx Assessment and Plan for all problems:: #Acute hypoxic respiratory failure: #COVID-19 pneumonia: #Pulmonary emboli: Mr. Valadez is 56-year-old male no prior respiratory complaint presented to the hospital worsening respiratory symptoms 1 day positive for COVID-19 pneumonia. Chest x-ray on admission showed bilateral lower lobe pulmonary infiltrates. D-dimer elevated 0.84. CRP elevated at 204. Ferritin at 1600. CTA showed evidence of pulmonary embolism. Plan: - Continue AnalgoSedation with Propofol and Fentanyl with CPOT gal less than or euqal to 2 and RASS goal of 1 to 2. Wean sedation as tolerated. Patient not need to be deeply sedated. - VAP bundle Elevate head of the bed at 30 to 45 degrees Oral care with chlorhexidne GI ulcer prophylaxis - Famotidine 20mg IV BID -Continue mechanical ventilatory support, ABG and chest x-ray reviewed. 7.37/ 49.3 / 83.9. We will continue to wean FiO2 and PEEP as tolerated. -Continue remdesivir, dexamethasone 6mg daily and Barcitinib for his COVID-19 pneumonia. -Endotracheal aspirate from 06/11 still pending. Continue to have leukocytosis now at 18.2
--- NOTE | 2021-06-18 12:37 | HMH.ACPN2 ---
Internal Medicine - PN: Subj *Date: 06/18/21 *Time: 08:00 Interval history: no sig reported changes Exam Vital signs and Labs for Last 24 Hours: Temp Pulse Resp BP Pulse Ox 99.7 F H 77 34 H 98/57 L 100 06/18/21 06:57 06/18/21 06:57 06/18/21 10:50 06/18/21 06:57 06/18/21 10:50 Laboratory Results - last 24 hr 06/18/21 05:30: APTT 49.0 H 06/18/21 05:30: WBC 18.2 H, RBC 3.03 L, Hgb 9.2 L, Hct 30.0 L, MCV 99.0 H, MCH 30.4, MCHC 30.7 L, RDW 12.4, Plt Count 314, MPV 9.8, Neut % (Auto) 87.9 H, Lymph % (Auto) 5.2 L, [place] % (Auto) 5.8, Eos % (Auto) 0.5, Baso % (Auto) 0.5, Neut # (Auto) 16.0 H, Lymph # (Auto) 1.0, [place] # (Auto) 1.1 H, Eos # (Auto) 0.1, Baso # (Auto) 0.1, Total Counted 100, Neutrophils % (Manual) 82 H, Band Neutrophils % 3.0, Lymphocytes % (Manual) 12, Monocytes % (Manual) 3, Platelet Estimate Normal, Hypochromasia 2+, Macrocytosis 1+ 06/18/21 05:30: Sodium 137, Potassium 5.2 H, Chloride 104, Carbon Dioxide 30, Anion Gap 8.2, BUN 46 H, Creatinine 0.90 D, Estimated Creat Clear 109, Estimated GFR 88, Est GFR ( Amer) 106 D, Glucose 97, Calcium 7.8 L, Total Bilirubin 0.2, AST 65 H, ALT 51, Alkaline Phosphatase 96, Total Protein 5.2 L, Albumin 2.4 L, Globulin 2.8, Albumin/Globulin Ratio 0.9 L 06/18/21 07:00: Specimen Source Right radial, O2 % 100, ABG pH 7.37, ABG pCO2 49.3 H, ABG pO2 83.9, ABG HCO3 28.1 H, ABG Total CO2 29.6 H, ABG O2 Saturation 96, ABG Base Excess 2.9 H, Luis Test Patient unable, Vent Rate 32, Tidal Volume 480, PEEP 14 I & O for Last 24 hours: Intake & Output 06/16/21 06/17/21 06/18/21 06/19/21 11:59 11:59 11:59 11:59 Intake Total 2025.291 / 2025.291 3867.788 / 4661.788 1876.417 / 1876.417 Output Total 2220 / 2570 3655 / 3755 3425 / 3425 Balance -194.709 / -544.709 212.788 / 906.788 -1548.583 / -1548.583 Weight 176 lb 5 oz 176 lb 4 oz 180 lb 9 oz Microbiology Reports for the Last 24 Hours: Microbiology 06/16/21 09:17 Urine,[place] Urine Culture - Final NO GROWTH AFTER 48 HOURS 06/16/21 09:15 Sputum - Endotracheal Tube Aspirate Gram Stain - Final 06/16/21 09:15 Sputum - Endotracheal Tube Aspirate Sputum Culture - Preliminary 06/16/21 09:15 Blood Blood Culture - Preliminary NO GROWTH AFTER 48 HOURS 06/16/21 09:15 Blood Blood Culture - Preliminary NO GROWTH AFTER 48 HOURS - Constitutional Comments: sedated and intubated - *Routine HEENT Exam Head: Present: normocephalic Eye: Present: PERRL ENT: Present: mucous membranes dry - *Routine Neck Exam Absent: JVD - *Routine Respiratory Exam Present: patient mechanically ventilated - *Routine Cardiovascular Exam Present: RRR - *Routine Abdominal Exam Present: soft - *Routine Extremities Exam Present: edema - *Routine Skin Exam Present: intact - *Routine Neurological Exam no posturing - Routine Psychiatric Exam Present: unable to assess Assessment and Plan (1) Enlarged heart Status: Acute Category: Medical Code(s): I51.7 - Cardiomegaly (2) COVID-19 Status: Acute Category: Medical Code(s): U07.1 - COVID-19 (3) Respiratory failure with hypoxia Status: Acute Qualifiers: Chronicity: acute Qualified Code(s): J96.01 - Acute respiratory failure with hypoxia Category: Medical Code(s): J96.91 - Respiratory failure, unspecified with hypoxia (4) COVID-19 virus infection Status: Acute Category: Medical Code(s): U07.1 - COVID-19 (5) Chest pain Status: Acute Qualifiers: Chest pain type: unspecified Qualified Code(s): R07.9 - Chest pain, unspecified Category: Medical Code(s): R07.9 - Chest pain, unspecified (6) CAD (coronary artery disease) Status: Chronic Qualifiers: Coronary Disease-Associated Artery/Lesion type: [place] artery [place] vs. transplanted heart: [place] heart Associated angina: without angina Qualified Code(s):
--- NOTE | 2021-06-18 14:09 | DIET.NUTRFU ---
TF is currently stopped per RN. Pt was tolerating TF on 06/15 per nutritional follow up note. Recommend restarting TF and slowly increasing to goal rate. Plan to initiate bowel regimen per MD progress note. Will continue to monitor and adjust as needed.
--- NOTE | 2021-06-18 15:38 | PC.NURSE ---
received call from lab ([facility]) reporting PTT 71.5. He reports that he will notify pharmacy. Name and verified.
[2021-06-18 15:39] LABS: Activated Partial Thrombo Time 71.5 seconds (22.8-30.6)
[2021-06-18 21:13] LABS: Activated Partial Thrombo Time 58.7 seconds (22.8-30.6)
[2021-06-19] VITALS (31 sets, daily range): BP systolic 95–128; BP diastolic 57–82; PULSE 57–117; RESP 26–34; TEMP 0–37.9; O2SAT 85–98; BMI 26.8
[2021-06-19 04:48] LABS: Basophils # 0.1 K/mm3 (0-0.2); Basophils % 0.4 % (0.1-2.0); Eosinophils % 0.2 % (0.1-12.0); Hematocrit 29.4 % (42.0-52.0); Hemoglobin 9.3 g/dL (14.1-18.0); Lymphocytes # 1.1 K/mm3 (0.7-4.5); Lymphocytes % 4.8 % (10-50); Mean Corpuscular HGB Conc 31.6 g/dL (31.8-35.4); Mean Corpuscular Hemoglobin 30.5 pg (27.0-31.2); Mean Corpuscular Volume 96.8 fl (80-94); Mean Platelet Volume 10.3 fl (7.4-10.4); Monocytes # 1.2 K/mm3 (0.1-1.0); Monocytes % 5.1 % (1.7-9.3); Neutrophils # 20.9 K/mm3 (1.8-7.8); Neutrophils % 89.5 % (37.0-80.0); Platelet Count 373 K/mm3 (142-424); Red Blood Count 3.03 M/mm3 (4.60-6.20); Red Cell Distribution Width 12.8 % (11.5-17.5); White Blood Count 23.4 K/mm3 (4.8-10.8)
[2021-06-19 04:57] LABS: Activated Partial Thrombo Time 54.2 seconds (22.8-30.6)
[2021-06-19 05:01] LABS: MANUAL DIFFERENTIAL MANUAL DIFFERENTIAL (MANUAL DIFF)
[2021-06-19 05:20] LABS: Chloride 102 mmol/L (98-107)
[2021-06-19 05:21] LABS: Potassium 5.8 mmoL/L (3.5-5.1); Sodium 136 mmol/L (136-145)
[2021-06-19 05:23] LABS: Lymphocytes % 7 % (10-50); Monocytes % 1 % (2-9); Neutrophils % 92 % (42-76); Platelet Estimate Normal; Stomatocytes 1+; Total Cells Counted 100
[2021-06-19 05:24] LABS: Anion Gap 9.8 mEq/L (5-15); Blood Urea Nitrogen 38 mg/dl (9-20); Calcium 8.2 mg/dl (8.4-10.2); Carbon Dioxide 30 mmol/L (22.0-30.0); Creatinine Clearance Estimated 106 mL/min (50-200); Estimated Glomerular Filt Rate 88 ml/min (>60); GFR (African American) 106 ML/MIN (>60); Glucose 108 mg/dl (74-100)
--- NOTE | 2021-06-19 07:09 | XR_ITS ---
PROCEDURE: XR CHEST PORTABLE CLINICAL HISTORY: Pt intubated Covid19 pneumonia, respiratory failure COMPARISON: CT CT ANGIO CHEST PE PROTOCOL from 06/11/2021 CR XR CHEST PORTABLE from 06/16/2021 CR XR CHEST PORTABLE from 06/17/2021 CR XR CHEST PORTABLE from 06/18/2021 FINDINGS: 7:29 a.m.. Endotracheal tube tip 6 cm above the adriane at the T2-T3 level. Nasogastric tube tip body of the stomach. Left subclavian central venous line tip in the region the SVC. Mild diffuse opacification of the right lung consistent with pneumonia. No evidence of pneumothorax. No acute bony abnormalities. IMPRESSION: Tubes and lines in good position with right-sided pneumonia not significantly changed. Dictated by: Luis Ruiz MD 06/19/2021 07:47 Luis Ruiz MD in [facility] 06/19/2021 07:47
[2021-06-19 07:22] LABS: ABG HCO3 29.6 mmhg (22.0-26.0); ABG Oxygen Saturation 95 % (90-100); ABG PCO2 47.4 mmhg (35.0-45.0); ABG PH 7.41 mmol/L (7.35-7.45); ABG PO2 77.6 mmhg (80-100)
[2021-06-19 07:28] LABS: Oxygen 90 %; PEEP 14; Tidal Volume 480; Vent Rate 32
[2021-06-19 07:29] LABS: Allen's Test acceptable; Source Right Radial
--- NOTE | 2021-06-19 09:07 | HMH.ACPN2 ---
Internal Medicine - PN: Subj *Date: 06/19/21 *Time: 18:47 Interval history: -year-old male patient remains intubated and sedated Exam Vital signs and Labs for Last 24 Hours: Temp Pulse Resp BP Pulse Ox 32 F L 61 32 H 106/64 L 95 06/19/21 06:51 06/19/21 06:51 06/19/21 06:51 06/19/21 06:51 06/19/21 06:51 Laboratory Results - last 24 hr 06/18/21 14:30: APTT 71.5 H* D 06/18/21 20:52: APTT 58.7 H 06/19/21 04:20: APTT 54.2 H 06/19/21 04:20: WBC 23.4 H* D, RBC 3.03 L, Hgb 9.3 L, Hct 29.4 L, MCV 96.8 H, MCH 30.5, MCHC 31.6 L, RDW 12.8, Plt Count 373, MPV 10.3, Neut % (Auto) 89.5 H, Lymph % (Auto) 4.8 L, [place] % (Auto) 5.1, Eos % (Auto) 0.2, Baso % (Auto) 0.4, Neut # (Auto) 20.9 H, Lymph # (Auto) 1.1, [place] # (Auto) 1.2 H, Eos # (Auto) 0.0, Baso # (Auto) 0.1, Total Counted 100, Neutrophils % (Manual) 92 H, Lymphocytes % (Manual) 7 L, Monocytes % (Manual) 1 L, Platelet Estimate Normal, Stomatocytes 1+ 06/19/21 04:20: Sodium 136, Potassium 5.8 H, Chloride 102, Carbon Dioxide 30, Anion Gap 9.8, BUN 38 H, Creatinine 0.90, Estimated Creat Clear 106, Estimated GFR 88, Est GFR ( Amer) 106, Glucose 108 H, Calcium 8.2 L 06/19/21 06:44: Specimen Source Right radial, O2 % 90, ABG pH 7.41, ABG pCO2 47.4 H, ABG pO2 77.6 L, ABG HCO3 29.6 H, ABG Total CO2 31.0 H, ABG O2 Saturation 95, ABG Base Excess 5.0 H, Luis Test acceptable, Vent Rate 32, Tidal Volume 480, PEEP 14 I & O for Last 24 hours: Intake & Output 06/16/21 06/17/21 06/18/21 06/19/21 23:59 23:59 23:59 23:59 Intake Total 3380.000 / 3736.000 2962.413 / 2962.413 1259.084 / 1259.084 679.625 / 679.625 Output Total 3700 / 3825 3555 / 3780 3785 / 3885 1825 / 1825 Balance -320.000 / -89.000 -592.587 / -817.587 -2525.916 / -2625.916 -1145.375 / -1145.375 Weight 176 lb 5 oz 176 lb 4 oz 180 lb 9 oz 176 lb 14.4 oz Microbiology Reports for the Last 24 Hours: Microbiology 06/16/21 09:17 Urine,[place] Urine Culture - Final NO GROWTH AFTER 48 HOURS 06/16/21 09:15 Sputum - Endotracheal Tube Aspirate Gram Stain - Final 06/16/21 09:15 Sputum - Endotracheal Tube Aspirate Sputum Culture - Preliminary 06/16/21 09:15 Blood Blood Culture - Preliminary NO GROWTH AFTER 48 HOURS 06/16/21 09:15 Blood Blood Culture - Preliminary NO GROWTH AFTER 48 HOURS - Constitutional no acute distress, chronically ill appearing - *Routine HEENT Exam Head: Present: normocephalic Eye: Present: EOMI ENT: Present: mucous membranes moist - *Routine Neck Exam Present: trachea midline. Absent: tracheal deviation - *Routine Respiratory Exam Present: patient mechanically ventilated, rales - *Routine Cardiovascular Exam Present: RRR - *Routine Abdominal Exam Present: soft, normoactive bowel sounds. Absent: tenderness - *Routine Extremities Exam Present: edema, pulses intact. Absent: cyanosis - *Routine Skin Exam Present: intact, dry. Absent: cyanosis, erythema - *Routine Neurological Exam Present: altered mental status Sedated - Routine Psychiatric Exam Present: unable to assess Comments: Sedated Assessment and Plan (1) Enlarged heart Status: Acute Category: Medical Code(s): I51.7 - Cardiomegaly (2) COVID-19 Status: Acute Category: Medical Code(s): U07.1 - COVID-19 (3) Respiratory failure with hypoxia Status: Acute Qualifiers: Chronicity: acute Qualified Code(s): J96.01 - Acute respiratory failure with hypoxia Category: Medical Code(s): J96.91 - Respiratory failure, unspecified with hypoxia (4) COVID-19 virus infection Status: Acute Category: Medical Code(s): U07.1 - COVID-19 (5) Chest pain Status: Acute Qualifiers: Chest pain type: unspecified Qualified Code(s): R07.9 - Chest pain, unspecified Category: Medical Code(s): R07.9 - Chest pain, unspecified (6) CAD (coronary artery disease) Status: Chronic
--- NOTE | 2021-06-19 09:16 | HMH.PULMPN ---
Internal Medicine - PN: Subj *Date: 06/19/21 *Time: 12:06 Interval history: No acute respiratory events overnight. Exam - Constitutional Constitutional:: Present: no acute distress, comfortable - HENMT Exam HENMT: Present: normocephalic - Eye Exam Eyes:: Present: normal appearance both eyes and related structures - Neck Exam Neck:: Present: normal visual inspection - Respiratory Exam Respiratory:: Present: respiratory distress, crackles - Cardiovascular Exam Cardiac:: Present: S1, S2 - GI Exam GI:: Present: soft, rigid - Skin Exam Skin: Present: warm - Neurological Exam Neurological: Absent: alert, awake, normal cognition Intubated and sedated. unArousable. Wean sedation as tolerated. - Extremities Exam Extremities: Present: no cyanosis, no clubbing, edema Assessment and Plan (1) Enlarged heart Status: Acute Category: Medical Code(s): I51.7 - Cardiomegaly (2) COVID-19 Status: Acute Category: Medical Code(s): U07.1 - COVID-19 (3) Respiratory failure with hypoxia Status: Acute Qualifiers: Chronicity: acute Qualified Code(s): J96.01 - Acute respiratory failure with hypoxia Category: Medical Code(s): J96.91 - Respiratory failure, unspecified with hypoxia (4) COVID-19 virus infection Status: Acute Category: Medical Code(s): U07.1 - COVID-19 (5) Chest pain Status: Acute Qualifiers: Chest pain type: unspecified Qualified Code(s): R07.9 - Chest pain, unspecified Category: Medical Code(s): R07.9 - Chest pain, unspecified (6) CAD (coronary artery disease) Status: Chronic Qualifiers: Coronary Disease-Associated Artery/Lesion type: [place] artery [place] vs. transplanted heart: [place] heart Associated angina: without angina Qualified Code(s): I25.10 - Atherosclerotic heart disease of [place] coronary artery without angina pectoris Category: Medical Code(s): I25.10 - Atherosclerotic heart disease of [place] coronary artery without angina pectoris (7) HLD (hyperlipidemia) Status: Chronic Qualifiers: Hyperlipidemia type: mixed hyperlipidemia Qualified Code(s): E78.2 - Mixed hyperlipidemia Category: Medical Code(s): E78.5 - Hyperlipidemia, unspecified (8) HTN (hypertension) Status: Chronic Qualifiers: Hypertension type: primary hypertension Qualified Code(s): I10 - Essential (primary) hypertension Category: Medical Code(s): I10 - Essential (primary) hypertension (9) Acute respiratory failure due to COVID-19 Status: Acute Category: Medical Code(s): U07.1 - COVID-19; J96.00 - Acute respiratory failure, unspecified whether with hypoxia or hypercapnia (10) PAF (paroxysmal atrial fibrillation) Status: Acute Category: Medical Code(s): I48.0 - Paroxysmal atrial fibrillation - Assessment and plan all Dx Assessment and Plan for all problems:: #Acute hypoxic respiratory failure: #COVID-19 pneumonia: #Pulmonary emboli: Mr. Valadez is 56-year-old male no prior respiratory complaint presented to the hospital worsening respiratory symptoms 1 day positive for COVID-19 pneumonia. Chest x-ray on admission showed bilateral lower lobe pulmonary infiltrates. D-dimer elevated 0.84. CRP elevated at 204. Ferritin at 1600. CTA showed evidence of pulmonary embolism. Plan: - Continue AnalgoSedation with Propofol and Fentanyl with CPOT gal less than or euqal to 2 and RASS goal of 1 to 2. Wean sedation as tolerated. Patient not need to be deeply sedated. - VAP bundle Elevate head of the bed at 30 to 45 degrees Oral care with chlorhexidne GI ulcer prophylaxis - Famotidine 20mg IV BID -Continue mechanical ventilatory support, ABG and chest x-ray reviewed. We will continue to wean FiO2 and PEEP as tolerated. -Continue remdesivir, dexamethasone 6mg daily and Barcitinib for his COVID-19 pneumonia. -Endotracheal aspirate from 06/11 still pending. Continue to have leukocytosis and low-grade fevers
[2021-06-19 11:30] LABS: Activated Partial Thrombo Time 48.7 seconds (22.8-30.6)
[2021-06-19 18:43] LABS: Activated Partial Thrombo Time 58.8 seconds (22.8-30.6)
[2021-06-20] VITALS (38 sets, daily range): BP systolic 90–181; BP diastolic 55–92; PULSE 60–132; RESP 20–38; TEMP 36.6–38.1; O2SAT 81–99; BMI 26.6
--- NOTE | 2021-06-20 06:00 | XR_ITS ---
PROCEDURE INFORMATION: Exam: XR Chest Exam date and time: 06/20/2021 6:00 AM Age: 56 years old Clinical indication: Device placement; Ett placement (vent status); Patient HX: Covid; Additional info: Intubation TECHNIQUE: Imaging protocol: XR of the chest. Views: 1 view. COMPARISON: CR XR CHEST PORTABLE 06/19/2021 7:29 AM FINDINGS: Tubes, catheters and devices: Stable support tubes and catheter. Lungs: Stable ill-defined bilateral infiltrates with lower lung predominance. Pleural spaces: Unremarkable. No pleural effusion. No pneumothorax. Heart/Mediastinum: Unremarkable. No cardiomegaly. Bones/joints: Unremarkable. IMPRESSION: Essentially stable appearance compared to the previous day, with findings above.
[2021-06-20 06:34] LABS: Basophils # 0.1 K/mm3 (0-0.2); Basophils % 0.3 % (0.1-2.0); Eosinophils # 0.1 K/mm3 (0.0-0.4); Eosinophils % 0.2 % (0.1-12.0); Hematocrit 30.7 % (42.0-52.0); Hemoglobin 9.7 g/dL (14.1-18.0); Lymphocytes # 1.3 K/mm3 (0.7-4.5); Lymphocytes % 5.4 % (10-50); Mean Corpuscular HGB Conc 31.5 g/dL (31.8-35.4); Mean Corpuscular Hemoglobin 30.4 pg (27.0-31.2); Mean Corpuscular Volume 96.5 fl (80-94); Mean Platelet Volume 10.5 fl (7.4-10.4); Monocytes # 1.4 K/mm3 (0.1-1.0); Monocytes % 5.7 % (1.7-9.3); Neutrophils # 21.7 K/mm3 (1.8-7.8); Neutrophils % 88.4 % (37.0-80.0); Platelet Count 345 K/mm3 (142-424); Red Blood Count 3.18 M/mm3 (4.60-6.20); Red Cell Distribution Width 12.9 % (11.5-17.5); White Blood Count 24.5 K/mm3 (4.8-10.8)
[2021-06-20 06:37] LABS: MANUAL DIFFERENTIAL MANUAL DIFFERENTIAL (MANUAL DIFF)
[2021-06-20 06:48] LABS: Alanine Aminotransferase 48 U/L (12-78); Albumin Level 2.7 g/dl (3.5-5.0); Albumin/Globulin Ratio 0.8 (1.1-1.8); Alkaline Phosphatase 96 U/L (38-126); Anion Gap 10.4 mEq/L (5-15); Aspartate Amino Transferase 52 U/L (17-59); Bilirubin,Total 0.4 mg/dl (0.2-1.3); Blood Urea Nitrogen 33 mg/dl (9-20); Calcium 8.5 mg/dl (8.4-10.2); Carbon Dioxide 34 mmol/L (22.0-30.0); Chloride 99 mmol/L (98-107); Creatinine Clearance Estimated 106 mL/min (50-200); Estimated Glomerular Filt Rate 88 ml/min (>60); GFR (African American) 106 ML/MIN (>60); Globulin 3.3 g/dL (1.3-3.2); Glucose 99 mg/dl (74-100); Potassium 5.4 mmoL/L (3.5-5.1); Sodium 138 mmol/L (136-145)
[2021-06-20 07:30] LABS: ABG Base Excess 3.3 mmol/L (-2.4-2.3); ABG HCO3 28.1 mmhg (22.0-26.0); ABG Oxygen Saturation 94 % (90-100); ABG PCO2 45.8 mmhg (35.0-45.0); ABG PH 7.41 mmol/L (7.35-7.45); ABG PO2 71.2 mmhg (80-100); ABG TCO2 29.5 mmhg (23-27)
[2021-06-20 07:32] LABS: Lactate Arterial 1.4 mmol/L (0.4-2.0)
[2021-06-20 07:33] LABS: Oxygen 100 %; PEEP 14; Tidal Volume 480; Vent Rate 28
[2021-06-20 07:34] LABS: Allen's Test Patient Unable; Source Right Radial
[2021-06-20 07:39] LABS: Lymphocytes % 6 % (10-50); Monocytes % 7 % (2-9); Neutrophils % 86 % (42-76); Total Cells Counted 100
[2021-06-20 07:40] LABS: Platelet Estimate Normal; RBC Morphology Normal
--- NOTE | 2021-06-20 09:13 | HMH.PULMPN ---
Internal Medicine - PN: Subj *Date: 06/20/21 *Time: 14:47 Interval history: No acute respiratory events overnight. Exam - HENMT Exam HENMT: Present: normocephalic, atraumatic - Eye Exam Eyes:: Present: normal appearance both eyes and related structures - Neck Exam Neck:: Present: normal visual inspection - Respiratory Exam Respiratory:: Present: respiratory distress, crackles - Cardiovascular Exam Cardiac:: Present: S1, S2 - GI Exam GI:: Present: soft - Skin Exam Skin: Present: warm - Neurological Exam Neurological: Absent: alert, awake, normal cognition - Extremities Exam Extremities: Present: no cyanosis, no clubbing, edema Assessment and Plan (1) Enlarged heart Status: Acute Category: Medical Code(s): I51.7 - Cardiomegaly (2) COVID-19 Status: Acute Category: Medical Code(s): U07.1 - COVID-19 (3) Respiratory failure with hypoxia Status: Acute Qualifiers: Chronicity: acute Qualified Code(s): J96.01 - Acute respiratory failure with hypoxia Category: Medical Code(s): J96.91 - Respiratory failure, unspecified with hypoxia (4) COVID-19 virus infection Status: Acute Category: Medical Code(s): U07.1 - COVID-19 (5) Chest pain Status: Acute Qualifiers: Chest pain type: unspecified Qualified Code(s): R07.9 - Chest pain, unspecified Category: Medical Code(s): R07.9 - Chest pain, unspecified (6) CAD (coronary artery disease) Status: Chronic Qualifiers: Coronary Disease-Associated Artery/Lesion type: [place] artery [place] vs. transplanted heart: [place] heart Associated angina: without angina Qualified Code(s): I25.10 - Atherosclerotic heart disease of [place] coronary artery without angina pectoris Category: Medical Code(s): I25.10 - Atherosclerotic heart disease of [place] coronary artery without angina pectoris (7) HLD (hyperlipidemia) Status: Chronic Qualifiers: Hyperlipidemia type: mixed hyperlipidemia Qualified Code(s): E78.2 - Mixed hyperlipidemia Category: Medical Code(s): E78.5 - Hyperlipidemia, unspecified (8) HTN (hypertension) Status: Chronic Qualifiers: Hypertension type: primary hypertension Qualified Code(s): I10 - Essential (primary) hypertension Category: Medical Code(s): I10 - Essential (primary) hypertension (9) Acute respiratory failure due to COVID-19 Status: Acute Category: Medical Code(s): U07.1 - COVID-19; J96.00 - Acute respiratory failure, unspecified whether with hypoxia or hypercapnia (10) PAF (paroxysmal atrial fibrillation) Status: Acute Category: Medical Code(s): I48.0 - Paroxysmal atrial fibrillation - Assessment and plan all Dx Assessment and Plan for all problems:: #Acute hypoxic respiratory failure: #COVID-19 pneumonia: #Pulmonary emboli: Mr. Valadez is 56-year-old male no prior respiratory complaint presented to the hospital worsening respiratory symptoms 1 day positive for COVID-19 pneumonia. Chest x-ray on admission showed bilateral lower lobe pulmonary infiltrates. D-dimer elevated 0.84. CRP elevated at 204. Ferritin at 1600. CTA showed evidence of pulmonary embolism. Plan: - Continue AnalgoSedation with Propofol and Fentanyl with CPOT gal less than or euqal to 2 and RASS goal of 1 to 2. Wean sedation as tolerated. Seroquel 50 BID - VAP bundle Elevate head of the bed at 30 to 45 degrees Oral care with chlorhexidne GI ulcer prophylaxis - Famotidine 20mg IV BID -Continue mechanical ventilatory support, ABG reviewed. and chest x-ray reviewed, stable. We will continue to wean FiO2 and PEEP as tolerated. Advance ET tube by 3 cm -Continue remdesivir, dexamethasone 6mg daily and Barcitinib for his COVID-19 pneumonia. -Endotracheal aspirate from 06/11 still pending. Continue to have leukocytosis and low-grade fevers. Over the weekend patient antibiotics were escalated from ceftriaxone to cefepime. most recent blood cultures and Ur
--- NOTE | 2021-06-20 09:38 | HMH.ACPN2 ---
Internal Medicine - PN: Subj *Date: 06/20/21 *Time: 21:34 Interval history: 56-year-old male lying in bed intubated and sedated. Current ventilator settings AC 28/440/100 +14. Levophed currently infusing Exam Vital signs and Labs for Last 24 Hours: Temp Pulse Resp BP Pulse Ox 99.3 F 69 30 H 97/57 L 95 06/20/21 09:13 06/20/21 09:13 06/20/21 09:13 06/20/21 09:13 06/20/21 09:13 Laboratory Results - last 24 hr 06/19/21 11:00: APTT 48.7 H 06/19/21 18:00: APTT 58.8 H 06/20/21 06:00: ABG Lactate 1.4 06/20/21 06:00: Specimen Source Right radial, O2 % 100, ABG pH 7.41, ABG pCO2 45.8 H, ABG pO2 71.2 L, ABG HCO3 28.1 H, ABG Total CO2 29.5 H, ABG O2 Saturation 94, ABG Base Excess 3.3 H, Luis Test Patient unable, Vent Rate 28, Tidal Volume 480, PEEP 14 06/20/21 06:00: WBC 24.5 H*, RBC 3.18 L, Hgb 9.7 L, Hct 30.7 L, MCV 96.5 H, MCH 30.4, MCHC 31.5 L, RDW 12.9, Plt Count 345, MPV 10.5 H, Neut % (Auto) 88.4 H, Lymph % (Auto) 5.4 L, Cole % (Auto) 5.7, Eos % (Auto) 0.2, Baso % (Auto) 0.3, Neut # (Auto) 21.7 H, Lymph # (Auto) 1.3, Cole # (Auto) 1.4 H, Eos # (Auto) 0.1, Baso # (Auto) 0.1, Total Counted 100, Neutrophils % (Manual) 86 H, Band Neutrophils % 1.0, Lymphocytes % (Manual) 6 L, Monocytes % (Manual) 7, Platelet Estimate Normal, RBC Morphology Normal 06/20/21 06:00: Sodium 138, Potassium 5.4 H, Chloride 99, Carbon Dioxide 34 H, Anion Gap 10.4, BUN 33 H, Creatinine 0.90, Estimated Creat Clear 106, Estimated GFR 88, Est GFR ( Amer) 106, Glucose 99, Calcium 8.5, Total Bilirubin 0.4, AST 52, ALT 48, Alkaline Phosphatase 96, Total Protein 6.0 L, Albumin 2.7 L, Globulin 3.3 H, Albumin/Globulin Ratio 0.8 L I & O for Last 24 hours: Intake & Output 06/17/21 06/18/21 06/19/21 06/20/21 23:59 23:59 23:59 23:59 Intake Total 2962.413 / 2962.413 1259.084 / 3222.284 9953.625 / 1989.625 295.833 / 295.833 Output Total 3555 / 3780 3785 / 3885 4830 / 5280 2019 Balance -592.587 / -817.587 -2525.916 / -2625.916 -2839.375 / -3289.375 -1724.167 / -1724.167 Weight 176 lb 4 oz 180 lb 9 oz 176 lb 14.4 oz 176 lb Microbiology Reports for the Last 24 Hours: Microbiology 06/16/21 09:15 Sputum - Endotracheal Tube Aspirate Gram Stain - Final 06/16/21 09:15 Sputum - Endotracheal Tube Aspirate Sputum Culture - Final Normal Respiratory Ernestina 06/17/21 08:10 Nose - Nasal MRSA Culture - Final Negative - Constitutional chronically ill appearing Comments: Sedated - *Routine HEENT Exam Head: Present: normocephalic Eye: Present: EOMI ENT: Present: mucous membranes moist - *Routine Neck Exam Present: trachea midline. Absent: tracheal deviation - *Routine Respiratory Exam Present: patient mechanically ventilated, crackles - *Routine Cardiovascular Exam Present: RRR - *Routine Abdominal Exam Present: soft, normoactive bowel sounds. Absent: rigid - *Routine Extremities Exam Present: cyanosis, pulses intact - *Routine Skin Exam Present: intact, dry, warm. Absent: cyanosis, erythema - *Routine Neurological Exam Sedated - Routine Psychiatric Exam Present: unable to assess Comments: Sedated Assessment and Plan (1) Enlarged heart Status: Acute Category: Medical Code(s): I51.7 - Cardiomegaly (2) COVID-19 Status: Acute Category: Medical Code(s): U07.1 - COVID-19 (3) Respiratory failure with hypoxia Status: Acute Qualifiers: Chronicity: acute Qualified Code(s): J96.01 - Acute respiratory failure with hypoxia Category: Medical Code(s): J96.91 - Respiratory failure, unspecified with hypoxia (4) COVID-19 virus infection Status: Acute Category: Medical Code(s): U07.1 - COVID-19 (5) Chest pain Status: Acute Qualifiers: Chest pain type: unspecified Qualified Code(s): R07.9 - Chest pain, unspecified Category: Medical Code(s): R07.9 - Chest pain, unspecified (6) CAD (coronary artery
--- NOTE | 2021-06-20 10:25 | PC.NURSE ---
0940 - FIO2 turned down to 70% by Dr. Bradley 1010 - SPO2 dropping to 83%, FIO2 increased to 80% by Nery MedinaRN
[2021-06-20 11:23] LABS: Activated Partial Thrombo Time 45.7 seconds (22.8-30.6)
--- NOTE | 2021-06-20 12:08 | DIET.NUTRFU ---
TF is currently stopped per RN. Recommend restarting TF and slowly increasing to goal rate. Plan to continue bowel regimen and tube feeds per MD progress note. Potassium slightly elevated. Will continue to monitor and adjust as needed.
--- NOTE | 2021-06-20 12:45 | PC.NURSE ---
1215 - SBT started by AltagraciaRT @ this time Pt desat to 79%-80%. Pt awake but unable to follow commands still @ this time. HR increasing to 120-130's. BP increased as well, SBP 170. Pt suctioned w/ no improvement in sat. Pt placed back on AC mode @ 1235. Propofol increased to 50 mcg/kg/min, Fentanyl @ 100 mcg/hr.
--- NOTE | 2021-06-20 12:52 | PC.NURSE ---
Pt's called @ this time, updated on plan of care
--- NOTE | 2021-06-20 14:52 | PC.NURSE ---
Received call from Dr. Bradley @ this time, states to advance ETT by 3 cm. S Sweet and MarlenRT @ bedside to advance tube now.
--- NOTE | 2021-06-20 15:14 | XR_ITS ---
PROCEDURE: XR CHEST PORTABLE CLINICAL HISTORY: repositioned ET tube COMPARISON: CT CT ANGIO CHEST PE PROTOCOL from 06/11/2021 CR XR CHEST PORTABLE from 06/18/2021 CR XR CHEST PORTABLE from 06/19/2021 CR XR CHEST PORTABLE from 06/20/2021 FINDINGS: 1515 hours. Endotracheal tube tip is in good position 4.5 cm above the adriane at the T4 level. Nasogastric tube tip is in the region the body of the stomach. Left subclavian central venous line tip at the SVC region. There remains bilateral ground-glass infiltrates in the right and left lower lobe. No evidence of pneumothorax. IMPRESSION: Tubes and line in good position with no change in the bilateral pneumonia Dictated by: Luis Ruiz MD 06/20/2021 15:39 Luis Ruiz MD in [facility] 06/20/2021 15:39
--- NOTE | 2021-06-20 16:45 | PC.NURSE ---
Addendum entered by Marina De Dios RN 06/20/21 18:58: Levo has been turned off since 1200. Original Note: Rate decreased to 20 on vent settings per Dr. Bradley. Pt very slow to recover after SBT, was mannually bagged by RT for long period of time to get SPO5 to 85%, Dr. Bradley aware. Lungs diminished throughout. HR regular, tachy occasionally this shift. Levo was turned off @ 1200. Abdomen soft, round, w/ active BS all quads. Pt did have a small smear BM this shift. Callejas to drain @ bedside w/ clear yellow urine. Generalized edema. Stage I noted to coccyx, open to air. Heels floating. Oral care provided. Suctioning through inline and use of yaunker, pt has had copious amounts of secretions, thick white, blood tinged. Currently resting, HOB elevated < 35 degrees.
[2021-06-20 19:44] LABS: Activated Partial Thrombo Time 56.8 seconds (22.8-30.6)
[2021-06-21] VITALS (35 sets, daily range): BP systolic 88–138; BP diastolic 49–76; PULSE 67–100; RESP 28–35; TEMP 37.2–38.3; O2SAT 89–100; BMI 25.4
--- NOTE | 2021-06-21 06:00 | XR_ITS ---
PROCEDURE INFORMATION: Exam: XR Chest Exam date and time: 06/21/2021 6:00 AM Age: 56 years old Clinical indication: Device placement; Ett placement (vent status); Patient HX: Covid; Additional info: Intubation TECHNIQUE: Imaging protocol: XR of the chest. Views: 1 view. COMPARISON: CR XR CHEST PORTABLE 06/20/2021 3:15 PM FINDINGS: Tubes, catheters and devices: Endotracheal tube, tip located approximately 5.5 cm from adriane. NG tube courses below diaphragm, tip projected over body of stomach. Central venous catheter with tip projected over SVC. Leads overlying chest. Lungs: Scattered mild patchy airspace opacities, slightly decreased from previous examination. Pleural spaces: No significant pleural effusion. No pneumothorax. Heart/Mediastinum: No cardiomegaly. Bones/joints: No displaced fracture. Soft tissues: Unremarkable. IMPRESSION: Endotracheal tube, tip located approximately 5.5 cm from adriane.
[2021-06-21 07:04] LABS: Basophils # 0.1 K/mm3 (0-0.2); Basophils % 0.2 % (0.1-2.0); Eosinophils # 0.1 K/mm3 (0.0-0.4); Eosinophils % 0.3 % (0.1-12.0); Hemoglobin 9.6 g/dL (14.1-18.0); Lymphocytes # 1.3 K/mm3 (0.7-4.5); Lymphocytes % 4.4 % (10-50); Mean Corpuscular HGB Conc 31.1 g/dL (31.8-35.4); Mean Corpuscular Hemoglobin 30.6 pg (27.0-31.2); Mean Corpuscular Volume 98.6 fl (80-94); Mean Platelet Volume 11.2 fl (7.4-10.4); Monocytes # 1.6 K/mm3 (0.1-1.0); Monocytes % 5.3 % (1.7-9.3); Neutrophils # 26.2 K/mm3 (1.8-7.8); Neutrophils % 89.7 % (37.0-80.0); Platelet Count 340 K/mm3 (142-424); Red Blood Count 3.15 M/mm3 (4.60-6.20); White Blood Count 29.2 K/mm3 (4.8-10.8)
[2021-06-21 07:10] LABS: ABG Base Excess 6.7 mmol/L (-2.4-2.3); ABG HCO3 31.5 mmhg (22.0-26.0); ABG Oxygen Saturation 95 % (90-100); ABG PO2 74.5 mmhg (80-100); ABG TCO2 33.1 mmhg (23-27); Oxygen 100 %; Tidal Volume 480
[2021-06-21 07:11] LABS: ABG PCO2 51.9 mmhg (35.0-45.0); Allen's Test Patient Unable; PEEP 14; Source Right Radial; Vent Rate 28
[2021-06-21 07:13] LABS: Alanine Aminotransferase 43 U/L (12-78); Albumin Level 2.7 g/dl (3.5-5.0); Albumin/Globulin Ratio 0.8 (1.1-1.8); Alkaline Phosphatase 102 U/L (38-126); Anion Gap 8.9 mEq/L (5-15); Aspartate Amino Transferase 44 U/L (17-59); Bilirubin,Total 0.5 mg/dl (0.2-1.3); Blood Urea Nitrogen 29 mg/dl (9-20); Calcium 8.4 mg/dl (8.4-10.2); Carbon Dioxide 35 mmol/L (22.0-30.0); Chloride 96 mmol/L (98-107); Creatinine Clearance Estimated 101 mL/min (50-200); Estimated Glomerular Filt Rate 88 ml/min (>60); GFR (African American) 106 ML/MIN (>60); Globulin 3.4 g/dL (1.3-3.2); Glucose 108 mg/dl (74-100); Potassium 4.9 mmoL/L (3.5-5.1); Sodium 135 mmol/L (136-145); Total Protein,Serum 6.1 g/dl (6.3-8.2)
[2021-06-21 07:15] LABS: Activated Partial Thrombo Time 53.1 seconds (22.8-30.6)
[2021-06-21 07:26] LABS: MANUAL DIFFERENTIAL MANUAL DIFFERENTIAL (MANUAL DIFF)
--- NOTE | 2021-06-21 07:35 | PC.NURSE ---
2100- levophed gtt started at 2 mcg/min 0040- levophed gtt titrated to 4 mcg/min 0215- unable to flush or aspirate contents in OG; removed and placed new OG 16F @ 53 cm; auscultated for placement; awaiting xray verification.
[2021-06-21 08:00] LABS: Hypochromasia 2+; Lymphocytes % 11 % (10-50); Macrocytosis 1+; Monocytes % 5 % (2-9); Neutrophils % 84 % (42-76); Platelet Estimate Normal; Total Cells Counted 100
--- NOTE | 2021-06-21 08:49 | HMH.ACPN2 ---
Internal Medicine - PN: Subj *Date: 06/21/21 *Time: 20:51 Interval history: 56-year-old male patient lying in bed resting quietly intubated and sedated. Norepinephrine infusing. Ventilator settings AC 28/480/100+14 Exam Vital signs and Labs for Last 24 Hours: Temp Pulse Resp BP Pulse Ox 100.0 F H 80 34 H 89/54 L 100 06/21/21 14:17 06/21/21 14:17 06/21/21 14:17 06/21/21 14:17 06/21/21 14:17 Laboratory Results - last 24 hr 06/20/21 19:00: APTT 56.8 H 06/21/21 01:00: APTT 53.0 H 06/21/21 06:00: Specimen Source Right radial, O2 % 100, ABG pH 7.40, ABG pCO2 51.9 H, ABG pO2 74.5 L, ABG HCO3 31.5 H, ABG Total CO2 33.1 H, ABG O2 Saturation 95, ABG Base Excess 6.7 H, Luis Test Patient unable, Vent Rate 28, Tidal Volume 480, PEEP 14 06/21/21 06:00: WBC 29.2 H*, RBC 3.15 L, Hgb 9.6 L, Hct 31.0 L, MCV 98.6 H, MCH 30.6, MCHC 31.1 L, RDW 13.0, Plt Count 340, MPV 11.2 H, Neut % (Auto) 89.7 H, Lymph % (Auto) 4.4 L, Stark % (Auto) 5.3, Eos % (Auto) 0.3, Baso % (Auto) 0.2, Neut # (Auto) 26.2 H, Lymph # (Auto) 1.3, Stark # (Auto) 1.6 H, Eos # (Auto) 0.1, Baso # (Auto) 0.1, Total Counted 100, Neutrophils % (Manual) 84 H, Lymphocytes % (Manual) 11, Monocytes % (Manual) 5, Platelet Estimate Normal, Hypochromasia 2+, Macrocytosis 1+ 06/21/21 06:00: Sodium 135 L, Potassium 4.9, Chloride 96 L, Carbon Dioxide 35 H, Anion Gap 8.9, BUN 29 H, Creatinine 0.90, Estimated Creat Clear 101, Estimated GFR 88, Est GFR ( Amer) 106, Glucose 108 H, Calcium 8.4, Total Bilirubin 0.5, AST 44, ALT 43, Alkaline Phosphatase 102, Total Protein 6.1 L, Albumin 2.7 L, Globulin 3.4 H, Albumin/Globulin Ratio 0.8 L 06/21/21 06:00: APTT 53.1 H 06/21/21 14:00: Triglycerides 296 H, Lipase 210 I & O for Last 24 hours: Intake & Output 06/18/21 06/19/21 06/20/21 06/21/21 23:59 23:59 23:59 23:59 Intake Total 1259.084 / 0903.139 8492.625 / 4148.131 5900.917 / 2285.917 1045.334 / 1045.334 Output Total 3785 / 3885 4830 / 5280 3610 / 3610 1860 / 1860 Balance -2525.916 / -2625.916 -2839.375 / -3289.375 -1324.083 / -1324.083 -814.666 / -814.666 Weight 180 lb 9 oz 176 lb 14.4 oz 176 lb 167 lb 9 oz Microbiology Reports for the Last 24 Hours: Microbiology 06/16/21 09:15 Blood Blood Culture - Final NO GROWTH AFTER 5 DAYS 06/16/21 09:15 Blood Blood Culture - Final NO GROWTH AFTER 5 DAYS - Constitutional no acute distress, chronically ill appearing Comments: Sedated - *Routine HEENT Exam Head: Present: normocephalic Eye: Present: EOMI ENT: Present: mucous membranes moist - *Routine Neck Exam Present: trachea midline. Absent: tracheal deviation - *Routine Respiratory Exam Present: accessory muscle use, patient mechanically ventilated, crackles - *Routine Cardiovascular Exam Present: RRR - *Routine Abdominal Exam Present: soft, normoactive bowel sounds. Absent: tenderness, firm - *Routine Extremities Exam Present: edema, pulses intact. Absent: cyanosis, clubbing - *Routine Skin Exam Present: intact, dry. Absent: cyanosis, erythema - *Routine Neurological Exam Present: altered mental status Sedated - Routine Psychiatric Exam Present: unable to assess Comments: Sedated Assessment and Plan (1) Enlarged heart Status: Acute Category: Medical Code(s): I51.7 - Cardiomegaly (2) COVID-19 Status: Acute Category: Medical Code(s): U07.1 - COVID-19 (3) Respiratory failure with hypoxia Status: Acute Qualifiers: Chronicity: acute Qualified Code(s): J96.01 - Acute respiratory failure with hypoxia Category: Medical Code(s): J96.91 - Respiratory failure, unspecified with hypoxia (4) COVID-19 virus infection Status: Acute Category: Medical Code(s): U07.1 - COVID-19 (5) Chest pain Status: Acute Qualifiers: Chest pain type: unspecified Qualified Code(s): R07.9 - Chest pain, unspecified Category: Medical Code(s): R07.9 -
--- NOTE | 2021-06-21 09:21 | HMH.PULMPN ---
Internal Medicine - PN: Subj *Date: 06/21/21 *Time: 13:34 Interval history: No acute respiratory events overnight. Patient continued to remain in high ventilatory settings. Exam - Constitutional Constitutional:: Present: comfortable - HENMT Exam HENMT: Present: normocephalic, atraumatic - Eye Exam Eyes:: Present: normal appearance both eyes and related structures - Neck Exam Neck:: Present: normal visual inspection - Respiratory Exam Respiratory:: Present: respiratory distress, rales - Cardiovascular Exam Cardiac:: Present: S1, S2 - GI Exam GI:: Present: soft - Skin Exam Skin: Present: warm - Neurological Exam Neurological: Absent: alert, awake, normal cognition - Extremities Exam Extremities: Present: no cyanosis, no clubbing, no edema Assessment and Plan (1) Enlarged heart Status: Acute Category: Medical Code(s): I51.7 - Cardiomegaly (2) COVID-19 Status: Acute Category: Medical Code(s): U07.1 - COVID-19 (3) Respiratory failure with hypoxia Status: Acute Qualifiers: Chronicity: acute Qualified Code(s): J96.01 - Acute respiratory failure with hypoxia Category: Medical Code(s): J96.91 - Respiratory failure, unspecified with hypoxia (4) COVID-19 virus infection Status: Acute Category: Medical Code(s): U07.1 - COVID-19 (5) Chest pain Status: Acute Qualifiers: Chest pain type: unspecified Qualified Code(s): R07.9 - Chest pain, unspecified Category: Medical Code(s): R07.9 - Chest pain, unspecified (6) CAD (coronary artery disease) Status: Chronic Qualifiers: Coronary Disease-Associated Artery/Lesion type: [place] artery [place] vs. transplanted heart: [place] heart Associated angina: without angina Qualified Code(s): I25.10 - Atherosclerotic heart disease of [place] coronary artery without angina pectoris Category: Medical Code(s): I25.10 - Atherosclerotic heart disease of [place] coronary artery without angina pectoris (7) HLD (hyperlipidemia) Status: Chronic Qualifiers: Hyperlipidemia type: mixed hyperlipidemia Qualified Code(s): E78.2 - Mixed hyperlipidemia Category: Medical Code(s): E78.5 - Hyperlipidemia, unspecified (8) HTN (hypertension) Status: Chronic Qualifiers: Hypertension type: primary hypertension Qualified Code(s): I10 - Essential (primary) hypertension Category: Medical Code(s): I10 - Essential (primary) hypertension (9) Acute respiratory failure due to COVID-19 Status: Acute Category: Medical Code(s): U07.1 - COVID-19; J96.00 - Acute respiratory failure, unspecified whether with hypoxia or hypercapnia (10) PAF (paroxysmal atrial fibrillation) Status: Acute Category: Medical Code(s): I48.0 - Paroxysmal atrial fibrillation - Assessment and plan all Dx Assessment and Plan for all problems:: #Acute hypoxic respiratory failure: #COVID-19 pneumonia: #Pulmonary emboli: Mr. Valadez is 56-year-old male no prior respiratory complaint presented to the hospital worsening respiratory symptoms 1 day positive for COVID-19 pneumonia. Chest x-ray on admission showed bilateral lower lobe pulmonary infiltrates. D-dimer elevated 0.84. CRP elevated at 204. Ferritin at 1600. CTA showed evidence of pulmonary embolism. Plan: - Continue AnalgoSedation with Propofol and Fentanyl with CPOT gal less than or euqal to 2 and RASS goal of 1 to 2. Patient has significant mental sequelae while weaning sedation leading desaturations and higher peak pressures. We will try to wean his propofol and fentanyl and will add Versed 2 mg IV every 2 as needed as fentanyl as needed's really not helping this patient's agitation. We will also increase Seroquel to 100 twice daily - VAP bundle Elevate head of the bed at 30 to 45 degrees Oral care with chlorhexidne GI ulcer prophylaxis - Famotidine 20mg IV BID -Continue mechanical ventilatory support, ABG reviewed. and chest x-ray reviewe
--- NOTE | 2021-06-21 10:52 | PC.NURSE ---
PEEP increased to [address] Bradley
--- NOTE | 2021-06-21 13:41 | XR_ITS ---
PROCEDURE INFORMATION: Exam: XR Abdomen Exam date and time: 06/21/2021 1:41 PM Age: 56 years old Clinical indication: Other: Bloating; Patient HX: Abdominal distention; Additional info: Distension TECHNIQUE: Imaging protocol: XR of the abdomen. Views: Frontal supine view of the abdomen. 1 View. COMPARISON: CR XR KUB 06/15/2021 9:21 PM FINDINGS: Tubes, catheters and devices: Tip of NG tube is proximally located in the fundus of the stomach. Side port is at the GE junction. Gastrointestinal tract: There is no evidence of bowel distension. Bones/joints: Unremarkable. IMPRESSION: Nonobstructive bowel gas pattern.
--- NOTE | 2021-06-21 14:25 | PC.NURSE ---
Spoke to pt's @ 1400, updated on plan of care. Remains vented. Lungs diminished in bilat lower lobes. HR regular, 70's. Abdomen soft, round. No BM this shift. Kayexalate given for constipation. Callejas cath to drain @ bedside w/ clear, yellow urine. Generalized edema. Stage I on coccyx, skin intact, discolored. Oral care provided, secretions are thick and yellow. Resting in bed, RASS -3.
[2021-06-21 14:33] LABS: Lipase 210 U/L (23-300); Triglycerides 296 mg/dl (30-150)
[2021-06-22] VITALS (34 sets, daily range): BP systolic 91–170; BP diastolic 45–92; PULSE 70–167; RESP 25–34; TEMP 36.3–37.8; O2SAT 84–100; BMI 24.7
--- NOTE | 2021-06-22 06:00 | XR_ITS ---
PROCEDURE INFORMATION: Exam: XR Chest Exam date and time: 06/22/2021 6:00 AM Age: 56 years old Clinical indication: Device placement; Ett placement (vent status); Patient HX: Covid; Additional info: Intubation TECHNIQUE: Imaging protocol: XR of the chest. Views: 1 view. COMPARISON: CR XR CHEST PORTABLE 06/21/2021 5:19 AM FINDINGS: Tubes, catheters and devices: The endotracheal tube tip is at the thoracic inlet and approximately 8.3 cm above the adriane. The NG tube is in the proximal stomach with the side port in the distal esophagus. There is a left subclavian central line with the tip in the superior vena cava. Lungs: See Heart/Mediastinum finding. Pleural spaces: There is a new small right pneumothorax estimated at 10%. No pleural effusion is seen. Heart/Mediastinum: The mild cardiomegaly and bilateral perihilar interstitial infiltrates have not changed significantly. Bones/joints: Osseous structures grossly intact. IMPRESSION: New small right pneumothorax estimated at 10%. Otherwise little change.
--- NOTE | 2021-06-22 06:29 | PC.NURSE ---
0- levophed gtt titrated to 12 mcg/min d/t bp 86/52 0000- stopped tf at this time d/t og redidual 150 ml 0400- reassessed og residual, 50 ml; tf continues to be paused 0630- propofol titrated to 60 mcg/kg/min
[2021-06-22 06:58] LABS: Basophils # 0.1 K/mm3 (0-0.2); Basophils % 0.4 % (0.1-2.0); Eosinophils % 0.2 % (0.1-12.0); Hematocrit 29.5 % (42.0-52.0); Lymphocytes # 1.2 K/mm3 (0.7-4.5); Lymphocytes % 4.8 % (10-50); Mean Corpuscular HGB Conc 30.5 g/dL (31.8-35.4); Mean Corpuscular Hemoglobin 30.8 pg (27.0-31.2); Mean Corpuscular Volume 100.8 fl (80-94); Mean Platelet Volume 10.7 fl (7.4-10.4); Monocytes # 1.5 K/mm3 (0.1-1.0); Monocytes % 5.9 % (1.7-9.3); Neutrophils % 88.6 % (37.0-80.0); Platelet Count 329 K/mm3 (142-424); Red Blood Count 2.93 M/mm3 (4.60-6.20); Red Cell Distribution Width 13.1 % (11.5-17.5); White Blood Count 24.8 K/mm3 (4.8-10.8)
[2021-06-22 06:59] LABS: MANUAL DIFFERENTIAL MANUAL DIFFERENTIAL (MANUAL DIFF)
[2021-06-22 07:08] LABS: Alanine Aminotransferase 36 U/L (12-78); Albumin Level 2.8 g/dl (3.5-5.0); Albumin/Globulin Ratio 0.8 (1.1-1.8); Alkaline Phosphatase 104 U/L (38-126); Anion Gap 11.8 mEq/L (5-15); Aspartate Amino Transferase 37 U/L (17-59); Bilirubin,Total 0.5 mg/dl (0.2-1.3); Blood Urea Nitrogen 41 mg/dl (9-20); Calcium 8.4 mg/dl (8.4-10.2); Carbon Dioxide 33 mmol/L (22.0-30.0); Chloride 100 mmol/L (98-107); Creatinine Clearance Estimated 68 mL/min (50-200); Estimated Glomerular Filt Rate 58 ml/min (>60); GFR (African American) 70 ML/MIN (>60); Globulin 3.3 g/dL (1.3-3.2); Glucose 144 mg/dl (74-100); Potassium 4.8 mmoL/L (3.5-5.1); Sodium 140 mmol/L (136-145); Total Protein,Serum 6.1 g/dl (6.3-8.2)
[2021-06-22 07:10] LABS: Lactate Arterial 1.3 mmol/L (0.4-2.0)
[2021-06-22 07:13] LABS: ABG Base Excess 1.2 mmol/L (-2.4-2.3); ABG HCO3 26.8 mmhg (22.0-26.0); ABG Oxygen Saturation 98 % (90-100); ABG PCO2 49.6 mmhg (35.0-45.0); ABG PH 7.35 mmol/L (7.35-7.45); ABG PO2 104.5 mmhg (80-100); ABG TCO2 28.4 mmhg (23-27)
[2021-06-22 07:14] LABS: Allen's Test Patient Unable; Oxygen 100 %; PEEP 18; Tidal Volume 480; Vent Rate 28
[2021-06-22 07:15] LABS: Source Left Radial
[2021-06-22 07:26] LABS: Lymphocytes % 2 % (10-50); Macrocytosis 1+; Monocytes % 6 % (2-9); Neutrophils % 92 % (42-76); Platelet Estimate Normal; Total Cells Counted 100
[2021-06-22 07:27] LABS: Hypochromasia 2+
[2021-06-22 07:45] LABS: Activated Partial Thrombo Time 46.7 seconds (22.8-30.6)
--- NOTE | 2021-06-22 09:23 | HMH.PULMPN ---
Internal Medicine - PN: Subj *Date: 06/22/21 *Time: 12:54 Interval history: No acute respiratory events overnight. Exam - Constitutional Constitutional:: Present: no acute distress, comfortable - HENMT Exam HENMT: Present: normocephalic, atraumatic - Eye Exam Eyes:: Present: normal appearance both eyes and related structures - Neck Exam Neck:: Present: normal visual inspection - Respiratory Exam Respiratory:: Present: respiratory distress, crackles - Cardiovascular Exam Cardiac:: Present: S1, S2 - GI Exam GI:: Present: soft - Skin Exam Skin: Present: warm, no rash - Neurological Exam Neurological: Present: alert, awake, normal cognition - Extremities Exam Extremities: Present: no cyanosis, no clubbing, no edema - Psychiatric Exam Psychiatric: Present: normal affect Assessment and Plan (1) Enlarged heart Status: Acute Category: Medical Code(s): I51.7 - Cardiomegaly (2) COVID-19 Status: Acute Category: Medical Code(s): U07.1 - COVID-19 (3) Respiratory failure with hypoxia Status: Acute Qualifiers: Chronicity: acute Qualified Code(s): J96.01 - Acute respiratory failure with hypoxia Category: Medical Code(s): J96.91 - Respiratory failure, unspecified with hypoxia (4) COVID-19 virus infection Status: Acute Category: Medical Code(s): U07.1 - COVID-19 (5) Chest pain Status: Acute Qualifiers: Chest pain type: unspecified Qualified Code(s): R07.9 - Chest pain, unspecified Category: Medical Code(s): R07.9 - Chest pain, unspecified (6) CAD (coronary artery disease) Status: Chronic Qualifiers: Coronary Disease-Associated Artery/Lesion type: [place] artery [place] vs. transplanted heart: [place] heart Associated angina: without angina Qualified Code(s): I25.10 - Atherosclerotic heart disease of [place] coronary artery without angina pectoris Category: Medical Code(s): I25.10 - Atherosclerotic heart disease of [place] coronary artery without angina pectoris (7) HLD (hyperlipidemia) Status: Chronic Qualifiers: Hyperlipidemia type: mixed hyperlipidemia Qualified Code(s): E78.2 - Mixed hyperlipidemia Category: Medical Code(s): E78.5 - Hyperlipidemia, unspecified (8) HTN (hypertension) Status: Chronic Qualifiers: Hypertension type: primary hypertension Qualified Code(s): I10 - Essential (primary) hypertension Category: Medical Code(s): I10 - Essential (primary) hypertension (9) Acute respiratory failure due to COVID-19 Status: Acute Category: Medical Code(s): U07.1 - COVID-19; J96.00 - Acute respiratory failure, unspecified whether with hypoxia or hypercapnia (10) PAF (paroxysmal atrial fibrillation) Status: Acute Category: Medical Code(s): I48.0 - Paroxysmal atrial fibrillation - Assessment and plan all Dx Assessment and Plan for all problems:: #Acute hypoxic respiratory failure: #COVID-19 pneumonia: #Pulmonary emboli: Mr. Valadez is 56-year-old male no prior respiratory complaint presented to the hospital worsening respiratory symptoms 1 day positive for COVID-19 pneumonia. Chest x-ray on admission showed bilateral lower lobe pulmonary infiltrates. D-dimer elevated 0.84. CRP elevated at 204. Ferritin at 1600. CTA showed evidence of pulmonary embolism. Plan: - Continue AnalgoSedation with Propofol and Fentanyl with CPOT gal less than or euqal to 2 and RASS goal of 1 to 2. Continue Seroquel 100 twice daily along with Versed as needed - VAP bundle Elevate head of the bed at 30 to 45 degrees Oral care with chlorhexidne GI ulcer prophylaxis - Famotidine 20mg IV BID -Continue mechanical ventilatory support, ABG reviewed. and chest x-ray reviewed, x-ray showed right-sided pneumothorax. We will repeat a chest x-ray stat and will consult surgery for chest tube placement. Appreciate help. ABG stable with improving oxygenation. Decrease FiO2 80% and PEEP to 16. Patient
--- NOTE | 2021-06-22 09:37 | HMH.ACPN2 ---
Internal Medicine - PN: Subj *Date: 06/22/21 *Time: 10:39 Interval history: 56-year-old male patient resting in bed intubated and sedated. Current vent settings AC 28/480/1 100+18. Levophed still infusing. Chest x-ray showing right pneumothorax 10%, no pleural effusion Exam Vital signs and Labs for Last 24 Hours: Temp Pulse Resp BP Pulse Ox 99.5 F 80 29 H 100/60 L 100 06/22/21 07:00 06/22/21 08:00 06/22/21 07:00 06/22/21 07:00 06/22/21 07:00 Laboratory Results - last 24 hr 06/21/21 14:00: Triglycerides 296 H, Lipase 210 06/22/21 05:15: WBC 24.8 H*, RBC 2.93 L, Hgb 9.0 L, Hct 29.5 L, MCV 100.8 H, MCH 30.8, MCHC 30.5 L, RDW 13.1, Plt Count 329, MPV 10.7 H, Neut % (Auto) 88.6 H, Lymph % (Auto) 4.8 L, [place] % (Auto) 5.9, Eos % (Auto) 0.2, Baso % (Auto) 0.4, Neut # (Auto) 22.0 H, Lymph # (Auto) 1.2, [place] # (Auto) 1.5 H, Eos # (Auto) 0.0, Baso # (Auto) 0.1, Total Counted 100, Neutrophils % (Manual) 92 H, Lymphocytes % (Manual) 2 L, Monocytes % (Manual) 6, Platelet Estimate Normal, Hypochromasia 2+, Macrocytosis 1+ 06/22/21 05:15: Sodium 140, Potassium 4.8, Chloride 100, Carbon Dioxide 33 H, Anion Gap 11.8, BUN 41 H D, Creatinine 1.30 H D, Estimated Creat Clear 68, Estimated GFR 58 L, Est GFR ( Amer) 70 D, Glucose 144 H D, Calcium 8.4, Total Bilirubin 0.5, AST 37, ALT 36, Alkaline Phosphatase 104, Total Protein 6.1 L, Albumin 2.8 L, Globulin 3.3 H, Albumin/Globulin Ratio 0.8 L 06/22/21 05:15: APTT 46.7 H 06/22/21 06:00: ABG Lactate 1.3 06/22/21 06:00: Specimen Source Left radial, O2 % 100, ABG pH 7.35, ABG pCO2 49.6 H, ABG pO2 104.5 H, ABG HCO3 26.8 H, ABG Total CO2 28.4 H, ABG O2 Saturation 98, ABG Base Excess 1.2, Luis Test Patient unable, Vent Rate 28, Tidal Volume 480, PEEP 18 I & O for Last 24 hours: Intake & Output 06/19/21 06/20/21 06/21/21 06/22/21 23:59 23:59 23:59 23:59 Intake Total 1989.625 / 0939.614 6961.917 / 2285.917 2917.841 / 3219.841 780.562 / 780.562 Output Total 4830 / 5280 3610 / 3610 3530 / 3905 875 / 875 Balance -2839.375 / -3289.375 -1324.083 / -1324.083 -612.159 / -685.159 -94.438 / -94.438 Weight 176 lb 14.4 oz 176 lb 167 lb 9 oz 163 lb 5 oz Microbiology Reports for the Last 24 Hours: Microbiology 06/16/21 09:15 Blood Blood Culture - Final NO GROWTH AFTER 5 DAYS 06/16/21 09:15 Blood Blood Culture - Final NO GROWTH AFTER 5 DAYS - Constitutional no acute distress, chronically ill appearing - *Routine HEENT Exam Head: Present: normocephalic Eye: Present: EOMI ENT: Present: mucous membranes moist - *Routine Respiratory Exam Present: patient mechanically ventilated, crackles - *Routine Cardiovascular Exam Present: RRR - *Routine Abdominal Exam Present: soft, normoactive bowel sounds. Absent: firm - *Routine Extremities Exam Present: pulses intact. Absent: cyanosis - *Routine Skin Exam Present: intact, dry. Absent: erythema - *Routine Neurological Exam Present: altered mental status Sedated - Routine Psychiatric Exam Present: unable to assess Comments: Sedated Assessment and Plan (1) Enlarged heart Status: Acute Category: Medical Code(s): I51.7 - Cardiomegaly (2) COVID-19 Status: Acute Category: Medical Code(s): U07.1 - COVID-19 (3) Respiratory failure with hypoxia Status: Acute Qualifiers: Chronicity: acute Qualified Code(s): J96.01 - Acute respiratory failure with hypoxia Category: Medical Code(s): J96.91 - Respiratory failure, unspecified with hypoxia (4) COVID-19 virus infection Status: Acute Category: Medical Code(s): U07.1 - COVID-19 (5) Chest pain Status: Acute Qualifiers: Chest pain type: unspecified Qualified Code(s): R07.9 - Chest pain, unspecified Category: Medical Code(s): R07.9 - Chest pain, unspecified (6) CAD (coronary artery disease) Status: Chronic Qualifiers: Coronary Disease-Associated Ar
--- NOTE | 2021-06-22 13:00 | XR_ITS ---
PROCEDURE: XR CHEST PORTABLE CLINICAL HISTORY: pnemothorax COMPARISON: CT CT ANGIO CHEST PE PROTOCOL from 06/11/2021 CR XR CHEST PORTABLE from 06/20/2021 CR XR CHEST PORTABLE from 06/21/2021 CR XR CHEST PORTABLE from 06/22/2021 FINDINGS: The 1323 hours. Endotracheal tube tip is in good position 4 cm above the adriane. Nasogastric tube tip is in the region of the body of the stomach. Left subclavian central venous line tip in the region of the SVC. Vague increased density is present in the right upper lobe in the perihilar region and in the left lower lobe suggesting bilateral pneumonia. Previously noted right-sided pneumothorax is smaller. Deep sulcus sign noted on the right suggesting small basilar component of the pneumothorax. The pneumothorax is only barely perceptible laterally measuring 3 mm in with No acute bony abnormalities. IMPRESSION: Right-sided pneumothorax is smaller compared to the previous exam of 06/22/2021. No change tubes and lines with bilateral pneumonia. Dictated by: Luis Ruiz MD 06/22/2021 13:47 Luis Ruiz MD in [place] 06/22/2021 13:47
--- NOTE | 2021-06-22 13:25 | PC.NURSE ---
consult for chest tube ordered per Dr Bradley. Dr Deleon notified, in surgery at this time. will consult on pt once surgery is completed.
--- NOTE | 2021-06-22 13:34 | PC.NURSE ---
1210 it was noted that the pt hr accelerated in the 160-170. pt was given versed as well as digoxin. hr decreased to 110.
--- NOTE | 2021-06-22 15:01 | DIET.NUTRFU ---
TF is currently stopped per RN. Recommend restarting TF and slowly increasing to goal rate. Plan to continue bowel regimen and tube feeds per MD progress note. Pt receiving Kayexalate to help with constipation. Potassium no longer elevated. Will continue to monitor and adjust as needed.
--- NOTE | 2021-06-22 15:09 | PC.NURSE ---
contacted by Dr Deleon who states that on the most recent xray of pt, pneumothorax appears smaller. he does not feel it is needed at this time. 1440. contacted dr parkinson at 1444 who states to order chest xray q6 on pt to monitor pneumothorax.
[2021-06-22 16:07] LABS: Activated Partial Thrombo Time 74.8 seconds (22.8-30.6)
--- NOTE | 2021-06-22 16:24 | HMH.GSCON ---
*Admission Date: 06/07/21 *Reason for consult:: Right apical pneumothorax *History of present illness: This is a 56-year-old gentleman seen in consultation from Dr. Bradley for evaluation regarding an apical right pneumothorax. Please see HPI from Dr. Quinteros's consult forwarded below. Forwarded from Dr. Quinteros's consult. Patient is a 56-year-old male from [place] with history of hypertension, cardio myopathy, hyperlipidemia who had tested positive for COVID-19 on 06/02/2021. He had worsening shortness of breath and presented to the emergency department on 06/07/2021. This morning he required emergent intubation and mechanical ventilation after rapid response was called. Surgery was consulted for central line placement. Review of Systems - Review of Systems Review of systems:: unable to obtain - *Neurologic Reports weakness, Denies abnormal walking, Denies abnormal hearing, Denies abnormal speech, Denies dizziness, Denies headache(s) [facility] History Medical History: Reports:: Hyperlipidemia, Hypertension, Myocardial Infarction *Have you ever received a pneumonia vaccine?: No *Have you received a flu vaccine this season?: No Laterality Cases: Bilateral: Tonsillectomy, Other Other Surgeries: Yes: No Previous Surgery Amputation: No Fractures: No - *Social History Smoking Status: Never smoker Alcohol Intake: current Alcohol Intake Frequency:: holidays/special occasions only Substance Use Type: denies use Last Used Substance: unknown *Occupational Status:: employed, disabled *Travel in the last 8 weeks: None Family Hx:: Coronary Artery Disease, Hypertension, Asthma Meds Home Medications Medication Instructions Recorded Confirmed Type aspirin 81 mg tablet,delayed 81 mg PO DAILY 10/10/20 06/07/21 History release metoprolol succinate 25 mg 25 mg PO DAILY #90 tab 02/28/21 06/07/21 Rx tablet,extended release 24 hr lisinopril 10 mg tablet 10 mg PO DAILY #30 tab 03/02/21 06/07/21 Rx albuterol sulfate 90 mcg/actuation 1 inh INHALATION QID PRN #8.5 g 03/08/21 06/07/21 Rx aerosol inhaler atorvastatin 40 mg tablet 40 mg PO HS #30 tab 04/12/21 06/07/21 Rx Allergies Allergy/AdvReac Type Severity Reaction Status Date / Time No Known Allergies Allergy Verified 06/02/21 14:11 Exam Vital signs and Labs for Last 24 Hours: Temp Pulse Resp BP Pulse Ox 99.3 F 134 H 28 H 110/74 84 L 06/22/21 14:00 06/22/21 14:00 06/22/21 14:00 06/22/21 14:00 06/22/21 14:00 Laboratory Results - last 24 hr 06/22/21 05:15: WBC 24.8 H*, RBC 2.93 L, Hgb 9.0 L, Hct 29.5 L, MCV 100.8 H, MCH 30.8, MCHC 30.5 L, RDW 13.1, Plt Count 329, MPV 10.7 H, Neut % (Auto) 88.6 H, Lymph % (Auto) 4.8 L, [place] % (Auto) 5.9, Eos % (Auto) 0.2, Baso % (Auto) 0.4, Neut # (Auto) 22.0 H, Lymph # (Auto) 1.2, [place] # (Auto) 1.5 H, Eos # (Auto) 0.0, Baso # (Auto) 0.1, Total Counted 100, Neutrophils % (Manual) 92 H, Lymphocytes % (Manual) 2 L, Monocytes % (Manual) 6, Platelet Estimate Normal, Hypochromasia 2+, Macrocytosis 1+ 06/22/21 05:15: Sodium 140, Potassium 4.8, Chloride 100, Carbon Dioxide 33 H, Anion Gap 11.8, BUN 41 H D, Creatinine 1.30 H D, Estimated Creat Clear 68, Estimated GFR 58 L, Est GFR ( Amer) 70 D, Glucose 144 H D, Calcium 8.4, Total Bilirubin 0.5, AST 37, ALT 36, Alkaline Phosphatase 104, Total Protein 6.1 L, Albumin 2.8 L, Globulin 3.3 H, Albumin/Globulin Ratio 0.8 L 06/22/21 05:15: APTT 46.7 H 06/22/21 06:00: ABG Lactate 1.3 06/22/21 06:00: Specimen Source Left radial, O2 % 100, ABG pH 7.35, ABG pCO2 49.6 H, ABG pO2 104.5 H, ABG HCO3 26.8 H, ABG Total CO2 28.4 H, ABG O2 Saturation 98, ABG Base Excess 1.2, Luis Test Patient unable, Vent Rate 28, Tidal Volume 480, PEEP 18 06/22/21 14:44: APTT 74.8 H* D I & O for Last 24 hours: Intake & Output 06/20/21 06/21/21 06/22/21 06/23/21 11:59 11:59 11:59 11:59 Intake Total 1465.541 / 5327.038 8117.418 / 3035.418 3053.069 / 3053.069 Output Total 4915 / 4915 2475 / 2475 3020 / 3020 [place]
--- NOTE | 2021-06-22 20:00 | XR_ITS ---
PROCEDURE INFORMATION: Exam: XR Chest Exam date and time: 06/22/2021 8:00 PM Age: 56 years old Clinical indication: Condition or disease; Other: RT pneumothorax; Patient HX: Right pneumothorax TECHNIQUE: Imaging protocol: XR of the chest. Views: 1 view. COMPARISON: CR XR CHEST PORTABLE 06/22/2021 1:23 PM FINDINGS: Tubes, catheters and devices: Endotracheal tube tip approximately 4 cm above the adriane. Left subclavian central venous catheter tip in the upper superior vena cava. Enteric tube tip within the gastric fundus lumen. Lungs: Mild bilateral perihilar ground-glass opacities, with mild bilateral bronchial wall thickening, most compatible with multifocal pneumonitis and reactive airway disease/bronchitis. Findings appear similar to comparison study. Pleural spaces: No pneumothorax. Heart/Mediastinum: Normal. Bones/joints: No acute abnormality. IMPRESSION: 1. Mild bilateral perihilar ground-glass opacities, with mild bilateral bronchial wall thickening, most compatible with multifocal pneumonitis and reactive airway disease/bronchitis. Findings appear similar to comparison study. 2. No pneumothorax.
[2021-06-22 23:52] LABS: Activated Partial Thrombo Time 59.6 seconds (22.8-30.6)
[2021-06-23] VITALS (34 sets, daily range): BP systolic 91–177; BP diastolic 49–99; PULSE 76–112; RESP 23–34; TEMP 36.8–37.7; O2SAT 84–98; BMI 25.8
--- NOTE | 2021-06-23 02:00 | XR_ITS ---
PROCEDURE INFORMATION: Exam: XR Chest Exam date and time: 06/23/2021 2:00 AM Age: 56 years old Clinical indication: Other: Right pneumothorax, covid TECHNIQUE: Imaging protocol: XR of the chest. Views: 1 view. COMPARISON: CR XR CHEST PORTABLE 06/22/2021 7:23 PM FINDINGS: Tubes, catheters and devices: Left subclavian central venous catheter tip in the superior vena cava. Endotracheal tube tip 4.8 cm above the adriane. Enteric tube tip within the stomach. Lungs: Bilateral mid and lower lung zone patchy ground-glass and linear opacities, similar to minimally increased from prior study, likely multifocal pneumonia. Atypical viral pneumonia, such as COVID-19, could have this appearance. Pleural spaces: No pneumothorax. Heart/Mediastinum: Normal. Bones/joints: No acute abnormality. IMPRESSION: 1. Support equipment as above. No acute complications. 2. Bilateral mid and lower lung zone patchy ground-glass and linear opacities, similar to minimally increased from prior study, likely multifocal pneumonia. Atypical viral pneumonia, such as COVID-19, could have this appearance.
--- NOTE | 2021-06-23 03:31 | PC.NURSE ---
He continues to be intubated and sedated. He is being turned and repositioned q 2 hours. HOB elevated 30 degrees. Sedation decreased and levophed increased r/t decreasing BP. NSR on telemetry.
[2021-06-23 05:54] LABS: Basophils # 0.1 K/mm3 (0-0.2); Basophils % 0.3 % (0.1-2.0); Eosinophils % 0.1 % (0.1-12.0); Lymphocytes # 1.1 K/mm3 (0.7-4.5); Lymphocytes % 5.1 % (10-50); Mean Corpuscular HGB Conc 30.6 g/dL (31.8-35.4); Mean Corpuscular Hemoglobin 30.5 pg (27.0-31.2); Mean Corpuscular Volume 99.8 fl (80-94); Mean Platelet Volume 10.9 fl (7.4-10.4); Monocytes # 1.1 K/mm3 (0.1-1.0); Neutrophils # 18.9 K/mm3 (1.8-7.8); Neutrophils % 89.5 % (37.0-80.0); Platelet Count 255 K/mm3 (142-424); Red Blood Count 2.56 M/mm3 (4.60-6.20); Red Cell Distribution Width 13.4 % (11.5-17.5)
[2021-06-23 06:00] LABS: Hematocrit 25.6 % (42.0-52.0); Hemoglobin 7.8 g/dL (14.1-18.0)
[2021-06-23 06:01] LABS: White Blood Count 21.1 K/mm3 (4.8-10.8)
[2021-06-23 06:02] LABS: MANUAL DIFFERENTIAL MANUAL DIFFERENTIAL (MANUAL DIFF)
[2021-06-23 06:04] LABS: Alanine Aminotransferase 31 U/L (12-78); Albumin Level 2.5 g/dl (3.5-5.0); Albumin/Globulin Ratio 0.8 (1.1-1.8); Alkaline Phosphatase 106 U/L (38-126); Aspartate Amino Transferase 40 U/L (17-59); Bilirubin,Total 0.2 mg/dl (0.2-1.3); Blood Urea Nitrogen 57 mg/dl (9-20); Calcium 8.3 mg/dl (8.4-10.2); Carbon Dioxide 28 mmol/L (22.0-30.0); Chloride 103 mmol/L (98-107); Creatinine Clearance Estimated 46 mL/min (50-200); Estimated Glomerular Filt Rate 35 ml/min (>60); GFR (African American) 42 ML/MIN (>60); Globulin 3.2 g/dL (1.3-3.2); Glucose 103 mg/dl (74-100); Sodium 141 mmol/L (136-145); Total Protein,Serum 5.7 g/dl (6.3-8.2)
[2021-06-23 06:18] LABS: Activated Partial Thrombo Time 60.5 seconds (22.8-30.6)
[2021-06-23 06:21] LABS: Lymphocytes % 5 % (10-50); Monocytes % 2 % (2-9); Neutrophils % 89 % (42-76); Platelet Estimate Normal; Total Cells Counted 100
[2021-06-23 06:22] LABS: Hypochromasia 2+; Macrocytosis 1+
[2021-06-23 07:35] LABS: ABG Base Excess -0.4 mmol/L (-2.4-2.3); ABG HCO3 25.9 mmhg (22.0-26.0); ABG Oxygen Saturation 85 % (90-100); ABG PH 7.31 mmol/L (7.35-7.45); ABG PO2 55.4 mmhg (80-100); ABG TCO2 27.5 mmhg (23-27)
[2021-06-23 07:54] LABS: Lactate Arterial 1.8 mmol/L (0.4-2.0)
--- NOTE | 2021-06-23 08:00 | XR_ITS ---
PROCEDURE INFORMATION: Exam: XR Chest Exam date and time: 06/23/2021 8:00 AM Age: 56 years old Clinical indication: Abnormal findings; Abnormal radiologic exam of lung or chest; Patient HX: Covid positive, PT is intubated; Additional info: Right pneumothorax TECHNIQUE: Imaging protocol: XR of the chest. Views: 1 view. COMPARISON: CR XR CHEST PORTABLE 06/23/2021 2:01 AM FINDINGS: Tubes, catheters and devices: A left peripherally inserted central venous catheter lies with its tip in the superior vena cava. Endotracheal tube terminates 5.7 cm above the adriane. An enteric feeding tube is present, with its tip located in the stomach in good position. Lungs: Patchy bilateral opacities may represent multifocal pneumonia including COVID-19. Pleural spaces: No significant pneumothorax identified .. Heart/Mediastinum: Unremarkable. No cardiomegaly. Bones/joints: Unremarkable. IMPRESSION: 1. Patchy bilateral opacities may represent multifocal pneumonia including COVID-19. 2. No significant pneumothorax identified ..
[2021-06-23 08:08] LABS: Oxygen 100 %; PEEP 18; Tidal Volume 480; Vent Rate 32
[2021-06-23 08:09] LABS: Source Right Radial
[2021-06-23 08:10] LABS: ABG PCO2 52.8 mmhg (35.0-45.0)
--- NOTE | 2021-06-23 08:52 | HMH.ACPN2 ---
Internal Medicine - PN: Subj *Date: 06/23/21 *Time: 08:54 Interval history: essentially unchanged on vent but dec h/h and increased bun/cr Exam Vital signs and Labs for Last 24 Hours: Temp Pulse Resp BP Pulse Ox 99.0 F 105 H 25 H 142/99 H 84 L 06/23/21 06:23 06/23/21 06:23 06/23/21 06:23 06/23/21 06:23 06/23/21 06:23 Laboratory Results - last 24 hr 06/22/21 14:44: APTT 74.8 H* D 06/22/21 23:00: APTT 59.6 H 06/23/21 05:00: WBC 21.1 H*, RBC 2.56 L, Hgb 7.8 L D, Hct 25.6 L, MCV 99.8 H, MCH 30.5, MCHC 30.6 L, RDW 13.4, Plt Count 255, MPV 10.9 H, Neut % (Auto) 89.5 H, Lymph % (Auto) 5.1 L, [place] % (Auto) 5.0, Eos % (Auto) 0.1, Baso % (Auto) 0.3, Neut # (Auto) 18.9 H, Lymph # (Auto) 1.1, [place] # (Auto) 1.1 H, Eos # (Auto) 0.0, Baso # (Auto) 0.1, Total Counted 100, Neutrophils % (Manual) 89 H, Band Neutrophils % 4.0, Lymphocytes % (Manual) 5 L, Monocytes % (Manual) 2, Platelet Estimate Normal, Hypochromasia 2+, Macrocytosis 1+ 06/23/21 05:00: Sodium 141, Potassium 5.0, Chloride 103, Carbon Dioxide 28, Anion Gap 15.0, BUN 57 H D, Creatinine 2.00 H D, Estimated Creat Clear 46, Estimated GFR 35 L, Est GFR ( Amer) 42 L D, Glucose 103 H D, Calcium 8.3 L, Total Bilirubin 0.2, AST 40, ALT 31, Alkaline Phosphatase 106, Total Protein 5.7 L, Albumin 2.5 L D, Globulin 3.2, Albumin/Globulin Ratio 0.8 L 06/23/21 05:00: APTT 60.5 H* 06/23/21 06:00: ABG Lactate 1.8 06/23/21 06:00: Specimen Source Right radial, O2 % 100, ABG pH 7.31 L, ABG pCO2 52.8 H, ABG pO2 55.4 L, ABG HCO3 25.9, ABG Total CO2 27.5 H, ABG O2 Saturation 85 L*, ABG Base Excess -0.4, Luis Test N/a, Vent Rate 32, Tidal Volume 480, PEEP 18 I & O for Last 24 hours: Intake & Output 06/20/21 06/21/21 06/22/21 06/23/21 11:59 11:59 11:59 11:59 Intake Total 1465.541 / 2963.835 8999.418 / 3035.418 3053.069 / 3053.069 2515.064 / 2515.064 Output Total 4915 / 4915 2475 / 2475 3020 / 3020 1450 / 1450 Balance -3449.459 / -3449.459 560.418 / 560.418 33.069 / 33.069 1065.064 / 1065.064 Weight 176 lb 167 lb 9 oz 163 lb 5 oz 170 lb 6.4 oz - Constitutional chronically ill appearing - *Routine HEENT Exam Head: Present: atraumatic Eye: Present: PERRL ENT: Present: other (intubated ) - *Routine Neck Exam Absent: JVD - *Routine Respiratory Exam Present: patient mechanically ventilated - *Routine Cardiovascular Exam Present: RRR - *Routine Abdominal Exam Present: soft - *Routine Extremities Exam Absent: calf tenderness - *Routine Skin Exam Absent: jaundice - *Routine Neurological Exam sedated - Routine Psychiatric Exam Present: unable to assess Assessment and Plan (1) Enlarged heart Status: Acute Category: Medical Code(s): I51.7 - Cardiomegaly (2) COVID-19 Status: Acute Category: Medical Code(s): U07.1 - COVID-19 (3) Respiratory failure with hypoxia Status: Acute Qualifiers: Chronicity: acute Qualified Code(s): J96.01 - Acute respiratory failure with hypoxia Category: Medical Code(s): J96.91 - Respiratory failure, unspecified with hypoxia (4) COVID-19 virus infection Status: Acute Category: Medical Code(s): U07.1 - COVID-19 (5) Chest pain Status: Acute Qualifiers: Chest pain type: unspecified Qualified Code(s): R07.9 - Chest pain, unspecified Category: Medical Code(s): R07.9 - Chest pain, unspecified (6) CAD (coronary artery disease) Status: Chronic Qualifiers: Coronary Disease-Associated Artery/Lesion type: [place] artery [place] vs. transplanted heart: [place] heart Associated angina: without angina Qualified Code(s): I25.10 - Atherosclerotic heart disease of [place] coronary artery without angina pectoris Category: Medical Code(s): I25.10 - Atherosclerotic heart disease of [place] coronary artery without angina pectoris (7) HLD (hyperlipidemia) Status: Chronic Qualifiers: Hyperlipidemia type: mixed hyperlipidemia Qualified Code(s): E78.2 - Mixed hyperlipide
--- NOTE | 2021-06-23 14:00 | XR_ITS ---
PROCEDURE INFORMATION: Exam: XR Chest Exam date and time: 06/23/2021 2:00 PM Age: 56 years old Clinical indication: Abnormal findings; Other: Covid postitive with pneumothorax; Patient HX: Patient is coivd positive on the vent in icu -- previous test showed right pneumothorax TECHNIQUE: Imaging protocol: XR of the chest. Views: 1 view. COMPARISON: CR XR CHEST PORTABLE 06/23/2021 7:44 AM FINDINGS: Tubes, catheters and devices: Endotracheal tube terminates 5 cm above the adriane in good position. A left peripherally inserted central venous catheter lies with its tip in the superior vena cava. An enteric feeding tube is present, with its tip located in the stomach in good position. Lungs: Opacities in the left base may represent atelectasis or pneumonia. Pleural spaces: Unremarkable. No pleural effusion. No pneumothorax. Heart/Mediastinum: Unremarkable. No cardiomegaly. Bones/joints: Unremarkable. IMPRESSION: Opacities in the left base may represent atelectasis or pneumonia.
[2021-06-23 21:55] LABS: Activated Partial Thrombo Time 58.9 seconds (22.8-30.6)
[2021-06-24] VITALS (10 sets, daily range): BP systolic 91–121; BP diastolic 54–67; PULSE 63–128; RESP 20–32; TEMP 37.6–38.3; O2SAT 22–96; BMI 25.7
--- NOTE | 2021-06-24 02:00 | XR_ITS ---
PROCEDURE INFORMATION: Exam: XR Chest Exam date and time: 06/24/2021 2:00 AM Age: 56 years old Clinical indication: Condition or disease; Other: RT pneumothorax; Additional info: Right pneumothorax covid intubated TECHNIQUE: Imaging protocol: XR of the chest. Views: 1 view. COMPARISON: CR XR CHEST PORTABLE 06/23/2021 2:43 PM FINDINGS: Tubes, catheters and devices: There is an endotracheal tube with its tip 4.7 cm above the adriane. A nasogastric tube is noted with its tip below the diaphragm. There is a left subclavian catheter with its tip in the superior vena cava. Lungs: Areas of patchy infiltration/atelectasis are noted within both mid and lower lung zones. Pleural spaces: Unremarkable. No pleural effusion. No pneumothorax. Heart/Mediastinum: Unremarkable. No cardiomegaly. Bones/joints: Unremarkable. IMPRESSION: 1. Endotracheal tube, nasogastric tube, and left subclavian catheter are in good position. 2. There are patchy areas of infiltration or atelectasis within both mid and lower lung zones. 3. No evidence of pulmonary vascular congestion. The heart is normal size. 4. Progress examination is suggested.
--- NOTE | 2021-06-24 04:24 | PC.NURSE ---
He is now febrile. Sinus tachy on telemetry. He has received PRN acetaminophen and ice packs are his bilateral axilla and in his grown. He O2 sat has dcreased since he has become febrile. There have been no vent setting changes. F/C patent with yellow, clear urine. HOB elevated 30 degrees. He is being turned and repositioned q 2 hours.
[2021-06-24 06:19] LABS: Basophils # 0.2 K/mm3 (0-0.2); Basophils % 0.6 % (0.1-2.0); Eosinophils % 0.1 % (0.1-12.0); Hematocrit 27.6 % (42.0-52.0); Lymphocytes # 2.3 K/mm3 (0.7-4.5); Lymphocytes % 6.7 % (10-50); Mean Corpuscular Hemoglobin 31.6 pg (27.0-31.2); Mean Corpuscular Volume 109.2 fl (80-94); Mean Platelet Volume 10.9 fl (7.4-10.4); Monocytes # 1.8 K/mm3 (0.1-1.0); Monocytes % 5.4 % (1.7-9.3); Neutrophils # 29.1 K/mm3 (1.8-7.8); Neutrophils % 87.2 % (37.0-80.0); Platelet Count 342 K/mm3 (142-424); Red Blood Count 2.53 M/mm3 (4.60-6.20); Red Cell Distribution Width 13.6 % (11.5-17.5); White Blood Count 33.4 K/mm3 (4.8-10.8)
[2021-06-24 06:23] LABS: MANUAL DIFFERENTIAL MANUAL DIFFERENTIAL (MANUAL DIFF)
[2021-06-24 06:25] LABS: Alanine Aminotransferase 35 U/L (12-78); Albumin Level 2.6 g/dl (3.5-5.0); Albumin/Globulin Ratio 0.8 (1.1-1.8); Alkaline Phosphatase 101 U/L (38-126); Anion Gap 22.9 mEq/L (5-15); Aspartate Amino Transferase 57 U/L (17-59); Bilirubin,Total 0.5 mg/dl (0.2-1.3); Blood Urea Nitrogen 61 mg/dl (9-20); Carbon Dioxide 20 mmol/L (22.0-30.0); Chloride 103 mmol/L (98-107); Creatinine Clearance Estimated 37 mL/min (50-200); Estimated Glomerular Filt Rate 27 ml/min (>60); GFR (African American) 33 ML/MIN (>60); Globulin 3.2 g/dL (1.3-3.2); Glucose 161 mg/dl (74-100); Sodium 139 mmol/L (136-145); Total Protein,Serum 5.8 g/dl (6.3-8.2)
[2021-06-24 06:29] LABS: Potassium 6.9 mmoL/L (3.5-5.1)
--- NOTE | 2021-06-24 06:44 | PC.NURSE ---
0620-Suri Valadez notified that rapid response had been called on patient and he was found to not have a pulse and that a code blue was called. She was notified that he had lost his pulse twice and that they had gotten it back but was unsure if he was going to maintain his pulse. Spoke with house and notified her that it was okay for her to come. 0633-Suri Valadez was notified that he had lost his pulse again and that his time of was 629. She stated she would call back and notify of which Home that his body may be released. She is unsure if she is coming to the facility at this time.
--- NOTE | 2021-06-24 06:46 | [facility].DEATH ---
Pronouncement Note - Date and Time of Date of : 06/24/21 Time of : 06:30 - PCOD Preliminary cause of : Acute respiratory failure - Additional Data Confirmation of : no pulse, no respirations, no heart sounds Family: contacted Attending/PCP notified?: Yes Attending physician: Sid Medel MD Was code activated?: Yes Autopsy requested?: No trade mark examiner notified?: No Organ bank notified?: Yes Advance directives: No
--- NOTE | 2021-06-24 06:47 | [facility].DCSUM ---
General - General Admission date:: 06/07/21 <Kristy Bowers - 02/28/22 14:49> 06/07/21 <Doug Durbin - 06/24/21 06:47> Discharge date: 06/24/21 <Doug Durbin - 06/24/21 06:47> HPI HPI: 56-year-old male presented to the emergency department with difficulty breathing. Symptoms started around 5 days ago. Was seen and tested on sat. He had cough, chills, fever, body aches. Tested positive for COVID-19 on Friday. At that time he was not having significant shortness of breath but over the last few days his symptoms have gotten worse. Patient states cough and shortness of breath has increased with Fevers and chills. No nausea or vomiting. Patient admitted for covid and pulm consult. Hx of HTN,enlarged heart,hyperlip <Doug Durbin - 06/24/21 06:47> Hospital Course Hospital Course: Abnormal Labs 06/07/21 06/07/21 06/07/21 11:50 11:50 11:53 WBC RBC Hgb Hct MCV MCH MCHC Plt Count MPV Neut % (Auto) 85.6 H Lymph % (Auto) 8.8 L [place] % (Auto) Eos % (Auto) 0.0 L Neut # (Auto) Lymph # (Auto) [place] # (Auto) Neutrophils % (Manual) 86 H Lymphocytes % (Manual) Monocytes % (Manual) APTT D-Dimer ABG pH ABG pCO2 ABG pO2 ABG HCO3 ABG Total CO2 ABG O2 Saturation ABG Base Excess VBG pH 7.42 H VBG pO2 26.9 L Sodium Potassium Chloride Carbon Dioxide Anion Gap 15.8 H BUN Creatinine 1.30 H Estimated GFR 58 L Est GFR ( Amer) Glucose 131 H Calcium Magnesium Ferritin Total Bilirubin AST 89 H ALT 102 H C-Reactive Protein 180.0 H Total Protein Albumin Globulin 4.1 H Albumin/Globulin Ratio 0.9 L Triglycerides 06/08/21 06/08/21 06/08/21 05:00 05:00 05:00 WBC RBC 4.51 L Hgb 13.7 L Hct MCV 94.7 H MCH MCHC Plt Count MPV Neut % (Auto) 86.8 H Lymph % (Auto) 8.4 L [place] % (Auto) Eos % (Auto) 0.0 L Neut # (Auto) 9.1 H Lymph # (Auto) [place] # (Auto) Neutrophils % (Manual) 90 H Lymphocytes % (Manual) 5 L Monocytes % (Manual) APTT D-Dimer 0.84 H ABG pH ABG pCO2 ABG pO2 ABG HCO3 ABG Total CO2 ABG O2 Saturation ABG Base Excess VBG pH VBG pO2 Sodium Potassium Chloride Carbon Dioxide Anion Gap 15.1 H BUN 28 H D Creatinine Estimated GFR Est GFR ( Amer) Glucose 171 H D Calcium Magnesium Ferritin Total Bilirubin AST ALT C-Reactive Protein Total Protein Albumin Globulin Albumin/Globulin Ratio Triglycerides 06/08/21 06/09/21 06/09/21 05:00 05:05 05:05 WBC 16.6 H D RBC 3.98 L Hgb 12.2 L Hct 37.2 L MCV MCH MCHC Plt Count MPV Neut % (Auto) 86.1 H Lymph % (Auto) 4.4 L [place] % (Auto) 9.4 H Eos % (Auto) 0.0 L Neut # (Auto) 14.3 H Lymph # (Auto) [place] # (Auto) 1.6 H Neutrophils % (Manual) 88 H Lymphocytes % (Manual) 8 L Monocytes % (Manual) APTT D-Dimer ABG pH ABG pCO2 ABG pO2 ABG HCO3 ABG Total CO2 ABG O2 Saturation ABG Base Excess VBG pH VBG pO2 Sodium Potassium Chloride 109 H Carbon Dioxide Anion Gap BUN 25 H Creatinine Estimated GFR Est GFR ( Amer) Glucose 130 H Calcium 8.0 L Magnesium Ferritin 1600 H Total Bilirubin AST 65 H D ALT C-Reactive Protein 204.4 H Total Protein 6.0 L Albumin 2.8 L Globulin Albumin/Globulin Ratio 0.9 L Triglycerides 06/10/21 06/10/21 06/11/21 05:00 05:00 01:02 WBC 15.0 H RBC 4.28 L Hgb 13.1 L Hct 40.0 L MCV MCH MCHC Plt Count MPV Neut % (Auto) 84.9 H Lymph % (Auto) 5.4 L [place] % (Auto) 9.6 H Eos % (Auto) 0.0 L Neut # (Auto) 12.7 H Lymph # (Auto) [place] # (Auto) 1.4 H Yogesh
[2021-06-24 07:01] LABS: Hypochromasia 2+; Lymphocytes % 12 % (10-50); Macrocytosis 2+; Monocytes % 5 % (2-9); Neutrophils % 76 % (42-76); Platelet Estimate Normal; Total Cells Counted 100
--- NOTE | 2021-06-24 07:23 | PC.NURSE ---
Critical potassium called by lab after time of but Dr. Durbin was present and notified.
--- NOTE | 2021-06-24 07:26 | PC.NURSE ---
0637-BRITANY notified of time of . Previously notified [facility] of GCS3 and was not being followed by [facility]ANY. Spoke with Iqra Juares and his case # is [id number]. BRITANY stated it is okay to release his body.
--- NOTE | 2021-06-24 08:45 | PC.NURSE ---
[facility] notified for body removal. is no longer @ [facility].
== END 2021-06-24 11:07 | disposition expired | DRG 207 ==
LOC: ER 12:52 → ICU 06-08 08:22
PROVIDERS: Internal Medicine Pulmonary Disease; Nurse Practitioner Family; Admitting Provider Family Medicine; Emergency Provider Emergency Medicine; PCP Nurse Practitioner Family; Visit Provider Family Medicine
DX: U07.1 COVID-19 (principal); J96.01 Acute respiratory failure with hypoxia; I26.99 Other pulmonary embolism without acute cor pulmonale; I42.9 Cardiomyopathy, unspecified; N17.9 Acute kidney failure, unspecified; I48.0 Paroxysmal atrial fibrillation; I10 Essential (primary) hypertension; E87.5 Hyperkalemia; E78.5 Hyperlipidemia, unspecified; I25.2 Old myocardial infarction; I25.10 Atherosclerotic heart disease of native coronary artery without angina pectoris; R00.1 Bradycardia, unspecified; D64.9 Anemia, unspecified
CPT/HCPCS: 31500; 94002; 36569; 36415; 71045; 71275; 74018; 80048; 80053; 81001; 82728; 82803; 83605; 83690; 83735; 84100; 84145; 84478; 85007; 85025; 85378; 85730; 86140; 87040; 87070; 87081; 87086; 87205; 93005; 93306; 93970; 94003; 94640; 94660; 94760; 94761; 96374; 99284; C1751; J2704; Q9967